=== PATIENT | female | born 1965 | race Caucasian/White ===

== ENCOUNTER → 2019-07-11 12:54 | Outpatient (BNVA) | payer MEDICARE, MEDICAID, SELFPAY | PROVIDERS: PCP Family Medicine; Referring Provider Psychiatry & Neurology Clinical Neurophysiology; Visit Provider Psychiatry & Neurology Neurology | DX: M79.604 Pain in right leg (principal); M79.605 Pain in left leg; M54.5 Low back pain; G43.009 Migraine without aura, not intractable, without status migrainosus; G44.40 Drug-induced headache, not elsewhere classified, not intractable | CPT/HCPCS: 99205 ==

== ENCOUNTER → 2019-08-24 14:02 | Outpatient (BNVA) | payer MEDICARE, MEDICAID, SELFPAY | PROVIDERS: PCP Family Medicine; Referring Provider Family Medicine; Visit Provider Psychiatry & Neurology Neurology | DX: M79.604 Pain in right leg (principal); M79.605 Pain in left leg; M54.9 Dorsalgia, unspecified; G43.009 Migraine without aura, not intractable, without status migrainosus; G44.40 Drug-induced headache, not elsewhere classified, not intractable | CPT/HCPCS: 99214 ==

== ENCOUNTER → 2019-10-26 08:14 | Outpatient (BNVA) | payer MEDICARE, MEDICAID, SELFPAY | PROVIDERS: PCP Family Medicine; Referring Provider Family Medicine; Visit Provider Psychiatry & Neurology Neurology | DX: G43.009 Migraine without aura, not intractable, without status migrainosus (principal); G44.40 Drug-induced headache, not elsewhere classified, not intractable; M79.604 Pain in right leg; M79.605 Pain in left leg; M54.9 Dorsalgia, unspecified; J44.9 Chronic obstructive pulmonary disease, unspecified | CPT/HCPCS: 99213; 99441 ==

== ENCOUNTER 2020-07-19 01:54 | Outpatient (CLI) | payer MEDICARE, MEDICAID, SELFPAY ==
--- NOTE | 2020-07-19 13:20 | DI.CT_ITS ---
EXAM: CT HEAD WO CLINICAL HISTORY: HEADACHE,R51.9. TECHNIQUE: Imaging Protocol: Axial computed tomography images with coronal and sagittal reformatted images were created and reviewed COMPARISON: No exams were available for comparison FINDINGS: There are no skull fractures nor fluid in the visualized paranasal sinuses. There is no evidence of intracranial hemorrhage, mass effect, or shift of midline structures. There are no extra-axial fluid collections. The ventricles are not enlarged or shifted and there is no blo od within the ventricular system nor within the basal cisterns. IMPRESSION: No acute intracranial findings on this noninfused CT scan of the brain. RADIATION DOSE DELIVERED: 661.28mGy.cm Total DLP DATA REPOSITORY: All CT scans at this facility are submitted to the National Radiology Data Registry (NRDR) Dose Index Registry (DIR) with the [employer] ([employer]). RADIATION OPTIMIZATION: All CT scans at this facility use at least one of these dose optimization te chniques: automated exposure control; mA and/or kV adjustment per patient size (includes targeted exa ms where dose is matched to clinical indication); or iterative reconstruction.
== END 2020-07-19 02:14 ==
PROVIDERS: PCP Family Medicine; Visit Provider Family Medicine
DX: R51.9 Headache, unspecified (principal)
CPT/HCPCS: 70450

== ENCOUNTER 2020-10-14 19:41 | Emergency (ER) | payer MEDICARE, MEDICAID, SELFPAY ==
[2020-10-14] VITALS (20 sets, daily range): BP systolic 122–162; BP diastolic 72–107; PULSE 65–85; RESP 10–20; TEMP 37; O2SAT 94–99
--- NOTE | 2020-10-14 19:45 | RT.EKG_ITS ---
APPROVED REPORT Exam: Resting ECG Patient Location: E HR:72 bpm ECG Measurements Heart Rate 72 AXIS VT 162 P 32 QRSd 85 QRS 61 QT 372 T -6 QTc 408 Conclusion Sinus rhythm...normal P axis, V-rate 60- [address] [place] [address]-T changes inferiorly
[2020-10-14] MEDS: Acetaminophen 500 MG TAB 1000 MG PO (20:26)
[2020-10-14] MEDS: Prochlorperazine 10 MG/2 ML VIAL IVP (20:26)
[2020-10-14] MEDS: diphenhydrAMINE 50 MG/ML VIAL 25 MG IVP (20:26)
[2020-10-14] MEDS: Normal Saline 1,000 ML 1000 ML IV (20:26)
[2020-10-14 20:57] LABS: Abs Immature Grans 0.04 10^3/uL (0.0-0.06); Absolute Basophil Count 0.19 10^3/uL (0.0-0.2); Absolute Eosinophil Count 0.28 10^3/uL (0.0-0.7); Absolute Lymphocyte Count 2.82 10^3/uL (1.2-3.4); Absolute Neutrophil Count 4.38 10^3/uL (1.2-6.7); Basophils % 2.2; Eosinophils % 3.3; HCT 47.7 % (36.0-46.0); HGB 15.4 g/dL (11.2-15.7); Immature Grans % 0.5; Lymphocytes % 32.8; MCH 29.3 pg (27.0-33.0); MCHC 32.3 % (32.0-36.0); MCV 90.9 fL (80-95); MPV 9.1 fL (8.0-11.0); Monocytes % 10.5; Neutrophils % 50.7; Nucleated RBC 0 %; Platelet Count 385 10^3/uL (130-400); RBC 5.25 10^6/uL (3.93-5.22); RDW 13.1 % (11.7-14.6); RDW-SD 43.8 fL; WBC 8.61 10^3/uL (4.4-10.8)
[2020-10-14 21:11] LABS: ALT 24 U/L (14-59); AST 12 U/L (15-37); Albumin 3.7 g/dL (3.4-5.0); Alkaline Phosphatase 109 U/L (46-116); Anion Gap 7.5 mmol/L (3-11); BUN 11 mg/dL (7-18); Bilirubin, Total 0.3 mg/dL (0.2-1.0); CO2 30.5 mmol/L (21.0-32.0); Calcium 9.4 mg/dL (8.5-10.1); Chloride 106 mmol/L (98-107); Estimated GFR 58.22 (mL/min/1.73m2); Glucose 120 mg/dL (74-106); Potassium 3.9 mmol/L (3.5-5.1); Sodium 144 mmol/L (136-145)
[2020-10-14 21:14] LABS: Troponin I < 0.05 ng/mL (<0.06)
--- NOTE | 2020-10-14 21:24 | W.ED.GENAD ---
Discharge Plan Disposition Patient Disposition: HOME Condition: Good Discharge Details Clinical Impression: Migraine headache without aura Primary Care Provider: Selvin Rai ED Provider: Pooja Hercules Home Meds and New Rx's Prescriptions: New prochlorperazine maleate [Compazine] 10 mg tablet 10 mg PO Q6H PRNQty: 14 RF: 0 Continued Advair HFA 230-21 mcg/actuation HFA aerosol inhaler 2 puff IH BID RF: 0 lamotrigine [Lamictal] 150 mg tablet 150 mg PO DAILY RF: 0 levalbuterol tartrate 45 mcg/actuation HFA aerosol inhaler 2 inh IH Q6H RF: 0 levothyroxine 100 mcg capsule 100 mcg PO DAILY RF: 0 polyethylene glycol 3350 17 gram/dose powder 17 gm PO DAILY RF: 0 quetiapine [Seroquel] 400 mg tablet 600 mg PO QHS RF: 0 gabapentin 600 mg tablet 600 mg PO QHS RF: 0 Discharge Instructions Additional Instructions: Please follow-up with your primary care physician tomorrow, I have written you prescription for Compazine, this medication can markedly well for headaches, you may try Excedrin Migraine as well Please return should you have worsening headache, fever, chills, stiff neck, strength or sensation change, or with any new or progressing symptoms Medical Decision Making Blood pressure at time of discharge 130/79, complete resolution of headache after migraine cocktail of Compazine and 25 of Benadryl with 1 L of normal saline and Tylenol 1 g Patient feels comfortable and request discharge home She has ALT of 12, no other acute abnormalities EKG and troponin negative for acute pathology We will follow up with primary care physician with possible referral to neurology in the outpatient setting #Prescription for home Return precautions discussed and patient expressed understanding Nonfocal neurological exam, no clinical evidence of meningitis No upper respiratory signs and symptoms appreciated on today's exam Differential Diagnosis Differential Diagnosis: Meningitis, TIA, migraine headache, sinusitis Medical Records Medical records reviewed: Yes I reviewed the patient's medical records. Lab Data Lab results reviewed: Yes I reviewed the patient's lab results. HPI This 64-year-old female with history of migraine headaches, back pain presents with report of lightheadedness, weakness, and headache. Patient has had intermittent episodes similar to this over the course of the past several months. She states that she had a CAT scan secondary to these symptoms. She denies any paresthesias or current dizziness. She states that her headache are always on the left side, she denies any pain over her lutheran. She denies stiff neck or fever. She denies any acute vision change aside from some mild photophobia. She denies known carbon monoxide exposure. She denies any falls or injuries. She has any history of anticoagulation. She is also found some today. She has not taken any medications prior to arrival. Has not followed up with neurology in the outpatient setting patient denies any dramatic change since her previous CT scan in June. General Date/Time Provider Initiated Documentation: 10/14/20 19:51. Related Data Home Medications Medication Instructions Recorded Confirmed fluticasone propionate 230 2 puff IH BID 07/11/19 10/14/20 mcg-salmeterol 21 mcg/actuation HFA inhaler lamotrigine 150 mg tablet 150 mg PO DAILY 07/11/19 10/14/20 levalbuterol tartrate 45 2 inh IH Q6H 07/11/19 10/14/20 mcg/actuation aerosol inhaler levothyroxine 100 mcg capsule 100 mcg PO DAILY 07/11/19 10/14/20 polyethylene glycol 3350 17 17 gm PO DAILY 07/11/19 10/14/20 gram/dose oral powder quetiapine 400 mg tablet 600 mg PO QHS tab 07/11/19 10/14/20 gabapentin 600 mg PO QHS 10/14/20 10/14/20 prochlorperazine maleate 10 mg PO Q6H PRN #14 tab 10/14/20 [Compazine] Previous Rx's Medication Instructions Recorded prochlorperazine maleate 10 mg PO Q6H PRN #14 tab 10/14/20 [Compazine] Allergies Allergy/AdvReac Type Severity Reaction Status Date / Time ampicillin Allergy Intermediate Rash, Verified 10/14/20 19:48 vomiting sulfamethoxazole Allergy Intermediate Tachycardia Verified 10/14/20 19:48 [From Bactrim] fluoxetine [From Prozac] Allergy Mild anxiety Verified 10/14/20 19:48 General Stated Complaint: Dizzy/Sync JOSEFINA: 3 Review of Systems Narrative: Review of systems negative x7 aside from where indicated in [facility] Medical History (Updated 10/14/20 @ 21:36 by SABA Gilman) Anemia Anxiety Bipolar 1 disorder COPD (chronic obstructive pulmonary disease) History of chronic constipation Hyperlipidemia Hypothyroidism Irritable bowel syndrome Low back pain Migraine headache without aura Postoperative retention of urine Right inguinal hernia Umbilical hernia Uterine fibroid Surgical History H/O breast biopsy x3 S/P cholecystectomy 2005 S/P hernia repair epigastric x3 S/P hysterectomy with oophorectomy 2018; with bladder suspension and cystocele repair Family History Father , HAD 3 MIS AND CABG- FACILITY OPERATIONS MANAGER ACCIDENT AT 49 Heart disease Myocardial infarction Mother Mental disorder Hx of chronic obstructive lung disease Brother Thyroid disease Daughter Asthma Social History Smoking/Tobacco Use Status: Current every day Smoking risk assessment performed?: Yes Alcohol Intake: never Drug use: Never Substance use type: does not use Number of Children: 2 current occupation: Unemployed What is your relationship status?: Panel score (0-1 are the most socially isolated patients): 0 Seatbelt use: always Do you feel safe at home: Yes Do you feel safe in your relationship?: Yes Exam Const General: cooperative, no acute distress and well developed HENMT Other: Uvula midline, TMs intact bilaterally Eyes Pupils: PERRL EOM: EOM intact bilaterally Neck Other: No meningismus, no carotid bruits Resp Effort & Inspection: normal respiratory effort Cardio Rate: regular rate Rhythm: regular rhythm Skin General skin exam: no rashes or lesions noted Neuro General: patient alert and patient oriented x3 Cranial Nerves: CN's II-XI intact bilaterally Cognition: normal cognition Speech: speech normal Sensory Exam: no sensory deficits noted Other: Strength and sensation intact distally, ambulatory with steady gait Course Vital Signs Vital signs: Vital Signs Temperature 37 C 10/14/20 19:46 Pulse 85 10/14/20 19:46 Respiratory Rate 20 10/14/20 19:46 Blood Pressure 162/89 H 10/14/20 19:46 Pulse Oximetry 99 10/14/20 19:46 Temperature 37 C 10/14/20 19:46 Temperature Source Skin 10/14/20 19:46 Pulse 78 10/14/20 20:46 Pulse 80 10/14/20 20:50 Respiratory Rate 11 L 10/14/20 20:50 Respiratory Effort Non-Labored 10/14/20 20:49 Respiratory Depth Normal 10/14/20 20:49 Respiratory Pattern Normal 10/14/20 20:49 Blood Pressure 140/85 10/14/20 20:46 Blood Pressure Mean 98 10/14/20 20:46 Blood Pressure Position Sitting 10/14/20 19:46 Pulse Oximetry 96 10/14/20 20:50 Oxygen Delivery Method Room Air 10/14/20 19:46 Oxygen Flow Rate 0 10/14/20 19:46 Pain Level 5 10/14/20 19:46 Lab/Test Results Lab/Test Results: Laboratory Tests Range/Units 10/14/20 10/14/20 20:39 20:39 WBC (4.4-10.8) 10^3/uL 8.61 RBC (3.93-5.22) 10^6/uL 5.25 H Hgb (11.2-15.7) g/dL 15.4 Hct (36.0-46.0) % 47.7 H MCV (80-95) fL 90.9 MCH (27.0-33.0) pg 29.3 MCHC (32.0-36.0) % 32.3 RDW (11.7-14.6) % 13.1 Plt Count (130-400) 10^3/uL 385 MPV (8.0-11.0) fL 9.1 Immature Gran % 0.5 Neutrophils % 50.7 Lymphocytes % 32.8 Monocytes % 10.5 Eosinophils % 3.3 Basophils % 2.2 Nucleated RBC % % 0 Absolute Neutrophils (1.2-6.7) 10^3/uL 4.38 Absolute Lymphocytes (1.2-3.4) 10^3/uL 2.82 Absolute Monocytes (0.1-0.8) 10^3/uL 0.90 H Absolute Eosinophils (0.0-0.7) 10^3/uL 0.28 Absolute Basophils (0.0-0.2) 10^3/uL 0.19 Sodium (136-145) mmol/L 144 Potassium (3.5-5.1) mmol/L 3.9 Chloride (98-107) mmol/L 106 Carbon Dioxide (21.0-32.0) mmol/L 30.5 Anion Gap (3-11) mmol/L 7.5 BUN (7-18) mg/dL 11 Creatinine (0.55-1.02) mg/dL 1.0 Estimated GFR/1.73 m2 (mL/min/1.73m2) 58.22 Glucose (74-106) mg/dL 120 H Calcium (8.5-10.1) mg/dL 9.4 Magnesium (1.8-2.4) mg/dL 2.0 Total Bilirubin (0.2-1.0) mg/dL 0.3 AST (15-37) U/L 12 L ALT (14-59) U/L 24 Alkaline Phosphatase (46-116) U/L 109 Troponin I (<0.06) ng/mL < 0.05 Total Protein (6.4-8.2) g/dL 7.0 Albumin (3.4-5.0) g/dL 3.7
== END 2020-10-14 21:52 | disposition home or self-care (01) ==
PROVIDERS: Emergency Provider Physician Assistant; PCP Family Medicine
DX: G43.809 Other migraine, not intractable, without status migrainosus (principal)
CPT/HCPCS: 80053; 93005; 96361; 96374; 96375; 99285; 83735; 84484; 85025; 93010; 99284; J0780; J1200

== ENCOUNTER 2021-06-04 11:51 | Emergency (ER) | payer MEDICARE, MEDICAID, SELFPAY ==
[2021-06-04] VITALS (29 sets, daily range): BP systolic 113–140; BP diastolic 69–80; PULSE 66–95; RESP 11–29; TEMP 36.6–36.8; O2SAT 93–98
--- NOTE | 2021-06-04 11:45 | RT.EKG_ITS ---
APPROVED REPORT Exam: Resting ECG Reason for Exam: heart palpitations Patient Location: E HR:78 bpm ECG Measurements Heart Rate 78 AXIS VT 164 P 8 QRSd 90 QRS 58 QT 345 T 8 QTc 393 Conclusion Sinus rhythm...normal P axis, V-rate 60- 99
--- NOTE | 2021-06-04 12:13 | W.ED.GENAD ---
Discharge Plan Disposition Patient Disposition: HOME Condition: Stable Discharge Details Clinical Impression: Palpitations Primary Care Provider: Selvin Rai ED Provider: Aroldo Leon Home Meds and New Rx's Prescriptions: Continued Advair HFA 230-21 mcg/actuation HFA aerosol inhaler 2 puff IH BID RF: 0 lamotrigine [Lamictal] 150 mg tablet 150 mg PO DAILY RF: 0 levalbuterol tartrate 45 mcg/actuation HFA aerosol inhaler 2 inh IH Q6H RF: 0 levothyroxine 100 mcg capsule 100 mcg PO DAILY RF: 0 polyethylene glycol 3350 17 gram/dose powder 17 gm PO DAILY RF: 0 quetiapine [Seroquel] 400 mg tablet 600 mg PO QHS RF: 0 gabapentin 600 mg tablet 600 mg PO QHS RF: 0 Discharge Instructions Instructions: Heart Palpitations (ED) Additional Instructions: Work-up in the ER is unremarkable for any obvious emergent process. You have remained asymptomatic while under my care. I have set you up for a Holter monitor for the next 48 hours. Please watch for new or worsening symptoms and return to the ER for any concerns. Otherwise I would like you to contact your primary care provider later today or first thing tomorrow morning to discuss your ER evaluation, ongoing symptoms, need for outpatient reevaluation Medical Decision Making 55-year-old female presents with palpitations since May 24 after receiving her booster vaccine, reports when she has the palpitations she feels short of breath and generalized weakness-shaking. Otherwise asymptomatic. Had an episode shortly prior to arrival but is asymptomatic now. Denies any cardiac history. Will obtain a cardiac work-up including D-dimer, delta troponin, and if unremarkable set the patient up with a Holter monitor. Currently she appears well, nontoxic, asymptomatic and hemodynamically stable. Initial laboratory values are unremarkable for any obvious emergent process. D-dimer 298. Will not pursue CTA of the chest. troponin less than 50. TSH 0.72 48-hour Holter monitor placed on the patient She remains asymptomatic and awaiting delta troponin Repeat EKG performed at 1533, sinus rhythm, ventricular rate of 71. No STEMI. Delta troponin remains less than 50. Patient remains asymptomatic. We discussed disposition, patient is comfortable discharge. She will be discharged with a 48-hour Holter monitor, given strict discharge and return precautions, otherwise will contact her primary care provider and follow-up as an outpatient. Medical Records Medical records reviewed: Yes I reviewed the patient's medical records. Imaging Data Radiologic Study: Attestation: I personally reviewed and interpreted this imaging study as follows: Imaging: X-Ray Radiologist's impression: Exam(s) XR CHEST 2V PA LATERAL EXAM: XR CHEST 2V PA LATERAL CLINICAL HISTORY: Palpitations TECHNIQUE: 2D digital imaging was performed of the chest. Two images were obtained. PA and lateral views were obtained. COMPARISON: No exams were available for comparison FINDINGS: MEDIASTINUM: Normal. HEART: Normal. PULMONARY VASCULATURE: Normal. LUNGS: Clear. PLEURAL SPACE: No pleural effusion or pneumothorax. BONE:Within normal limits for the patient's age. OTHER FINDINGS:Normal. IMPRESSION: No acute pulmonary findings. Lab Data Lab results reviewed: Yes I reviewed the patient's lab results. Labs: Laboratory Tests Range/Units 06/04/21 06/04/21 06/04/21 12:17 12:17 12:17 WBC (4.4-10.8) 10^3/uL 8.49 RBC (3.93-5.22) 10^6/uL 5.31 H Hgb (11.2-15.7) g/dL 15.1 Hct (36.0-46.0) % 47.2 H MCV (80-95) fL 88.9 MCH (27.0-33.0) pg 28.4 MCHC (32.0-36.0) % 32.0 RDW (11.7-14.6) % 12.8 Plt Count (130-400) 10^3/uL 370 MPV (8.0-11.0) fL 9.0 Immature Gran % 0.4 Neutrophils % 66.0 Lymphocytes % 21.9 Monocytes % 7.7 Eosinophils % 2.1 Basophils % 1.9 Nucleated RBC % % 0 Absolute Neutrophils (1.2-6.7) 10^3/uL 5.61 Absolute Lymphocytes (1.2-3.4) 10^3/uL 1.86 Absolute Monocytes (0.1-0.8) 10^3/uL 0.65 Absolute Eosinophils (0.0-0.7) 10^3/uL 0.18 Absolute Basophils (0.0-0.2) 10^3/uL 0.16 PT (9.3-11.0) sec 9.7 INR (0.9-1.1) 1.0 APTT (21.0-27.5) sec 22.3 D-Dimer (<500) ng/mlFEU 298 Sodium (136-145) mmol/L 143 Potassium (3.5-5.1) mmol/L 3.7 Chloride (98-107) mmol/L 107 Carbon Dioxide (21.0-32.0) mmol/L 28.8 Anion Gap (3-11) mmol/L 7.2 BUN (7-18) mg/dL 14 Creatinine (0.55-1.02) mg/dL 1.0 Estimated GFR/1.73 m2 (mL/min/1.73m2) 58.00 Glucose (74-106) mg/dL 118 H Calcium (8.5-10.1) mg/dL 9.1 Magnesium (1.8-2.4) mg/dL 2.1 Total Bilirubin (0.2-1.0) mg/dL 0.4 AST (15-37) U/L 10 L ALT (14-59) U/L 14 Alkaline Phosphatase (46-116) U/L 100 Troponin I (<or=60) ng/L < 50 Total Protein (6.4-8.2) g/dL 6.7 Albumin (3.4-5.0) g/dL 3.5 TSH (0.36-3.74) uIU/mL 0.72 ECG Data Attestation: I personally reviewed and interpreted this ECG (s) as follows: Interpretation: Please see official report by Dr. Truong. Sinus rhythm, ventricular rate of 78. No STEMI HPI General Mode of arrival: EMS. Date/Time Provider Initiated Documentation: 06/04/21 12:05. Limitations to Documentation: no limitations. Information obtained by: patient and EMS. HPI Narrative: This is a 55-year-old female with a past medical history of thyroid disease, anemia, anxiety, bipolar, COPD, current smoker, who reports that she received her Moderna Covid Covid booster on May 24 and later that evening began having palpitations. She states ever since that day she has had intermittent palpitations sometimes at rest, sometimes with exertion, nothing really makes it worse or better. She is otherwise asymptomatic. When she has the palpitations she feels generalized weakness, short of breath and reports feeling somewhat shaky. When she is not having palpitations she is asymptomatic. She denies recent illness or trauma, neck pain, chest pain, cough abdominal pain with nausea, vomiting, history of DVT or PE, pain or swelling her legs. Related Data Home Medications Medication Instructions Recorded Confirmed fluticasone propionate 230 2 puff IH BID 07/11/19 06/04/21 mcg-salmeterol 21 mcg/actuation HFA inhaler lamotrigine 150 mg tablet 150 mg PO DAILY 07/11/19 06/04/21 levalbuterol tartrate 45 2 inh IH Q6H 07/11/19 06/04/21 mcg/actuation aerosol inhaler levothyroxine 100 mcg capsule 100 mcg PO DAILY 07/11/19 06/04/21 polyethylene glycol 3350 17 17 gm PO DAILY 07/11/19 06/04/21 gram/dose oral powder quetiapine 400 mg tablet 600 mg PO QHS tab 07/11/19 06/04/21 gabapentin 600 mg PO QHS 10/14/20 06/04/21 Allergies Allergy/AdvReac Type Severity Reaction Status Date / Time ampicillin Allergy Intermediate Rash, Verified 06/04/21 12:05 vomiting sulfamethoxazole Allergy Intermediate Tachycardia Verified 06/04/21 12:05 [From Bactrim] fluoxetine [From Prozac] Allergy Mild anxiety Verified 06/04/21 12:05 General Stated Complaint: Palpitatns JOSEFINA: 2 Review of Systems Constitutional Constitutional: Denies fatigue, Denies fever(s) and Denies weakness ENT Ears, Nose, Mouth, and Throat: Denies neck pain Cardiovascular Cardiovascular: Denies chest pain, Reports irregular heart rhythm, Reports palpitations and Reports dyspnea (With palpitations) Respiratory Respiratory: Denies cough Gastrointestinal Gastrointestinal: Denies abdominal pain, Denies nausea and Denies vomiting Musculoskeletal Musculoskeletal: Reports back pain (Chronic) and Denies neck pain Integumentary/Breasts Skin/Breast: Denies rash Neurologic Neurologic: Denies weakness Endocrine Endocrine: Denies fatigue and Reports palpitations Hematologic/Lymphatic Hematologic/Lymphatic: Denies easy bleeding and Denies easy bruising PFSH All Active Problems (Updated 06/04/21 @ 14:53 by SABA Ovalle) Palpitations (Acute) Medication overuse headache (Acute) Migraine headache without aura (Acute) Chronic headache (Acute) Back pain (Acute) Leg pain, bilateral (Acute) Medical History (Updated 06/04/21 @ 14:53 by SABA Ovalle) Anemia Anxiety Bipolar 1 disorder COPD (chronic obstructive pulmonary disease) History of chronic constipation Hyperlipidemia Hypothyroidism Irritable bowel syndrome Low back pain Postoperative retention of urine Right inguinal hernia Umbilical hernia Uterine fibroid Surgical History H/O breast biopsy x3 S/P cholecystectomy 2005 S/P hernia repair epigastric x3 S/P hysterectomy with oophorectomy 2018; with bladder suspension and cystocele repair Family History Father , HAD 3 MIS AND CABG- HUMAN SERVICES PROFESSIONAL ACCIDENT AT 49 Heart disease Myocardial infarction Mother Mental disorder Hx of chronic obstructive lung disease Brother Thyroid disease Daughter Asthma Social History Smoking/Tobacco Use Status: Current every day Smoking risk assessment performed?: Yes Alcohol Intake: never Drug use: Never Substance use type: does not use Number of Children: 2 current occupation: Unemployed What is your relationship status?: Panel score (0-1 are the most socially isolated patients): 0 Seatbelt use: always Do you feel safe at home: Yes Do you feel safe in your relationship?: Yes Exam Const General: cooperative, healthy appearing, comfortable and no acute distress Orientation: alert, awake and oriented x3 HENMT Head: normal to inspection, normocephalic and atraumatic Face and sinus: normal facial exam Mouth: moist mucous membranes Eyes General: appearance normal, both eyes and all related structures Conjunctivae: conjunctivae normal Neck Neck: normal visual inspection, full ROM, trachea midline, supple and nontender Resp Effort & Inspection: normal respiratory effort and able to speak in complete sentences Auscultation: clear to auscultation bilaterally Cardio Rate: regular rate Rhythm: regular rhythm GI Palpation: soft and nontender Back/Spine/Pelvis Back: No back tenderness Skin General skin exam: no rashes or lesions noted Neuro General: patient alert, patient awake, patient oriented x3, moves all extremities and no focal motor deficits Cognition: normal cognition Speech: speech normal Gait: normal gait Motor: muscle tone normal throughout Sensory Exam: no sensory deficits noted Extrem General: normal to inspection, full ROM, capillary refill normal, no pedal edema and no calf tenderness Psych Appearance: grossly normal Mental Status: mental status grossly normal Course Vital Signs Vital signs: Vital Signs Temperature 36.6 C 06/04/21 11:52 Pulse 83 06/04/21 11:52 Respiratory Rate 14 06/04/21 11:52 Blood Pressure 140/80 06/04/21 11:52 Pulse Oximetry 93 06/04/21 11:52 Temperature 36.6 C 06/04/21 11:52 Temperature Source Temporal Artery Scan 06/04/21 11:52 Pulse 83 06/04/21 11:52 Respiratory Rate 14 06/04/21 11:52 Respiratory Effort Non-Labored 06/04/21 12:01 Blood Pressure 140/80 06/04/21 11:52 Blood Pressure Position Sitting 06/04/21 11:52 Pulse Oximetry 93 06/04/21 11:52 Oxygen Delivery Method Room Air 06/04/21 11:52 Oxygen Flow Rate 0 06/04/21 11:52 Pain Level 0 06/04/21 12:01
[2021-06-04 12:24] LABS: Abs Immature Grans 0.03 10^3/uL (0.0-0.06); Absolute Basophil Count 0.16 10^3/uL (0.0-0.2); Absolute Eosinophil Count 0.18 10^3/uL (0.0-0.7); Absolute Lymphocyte Count 1.86 10^3/uL (1.2-3.4); Absolute Monocyte Count 0.65 10^3/uL (0.1-0.8); Absolute Neutrophil Count 5.61 10^3/uL (1.2-6.7); Basophils % 1.9; Eosinophils % 2.1; HCT 47.2 % (36.0-46.0); HGB 15.1 g/dL (11.2-15.7); Immature Grans % 0.4; Lymphocytes % 21.9; MCH 28.4 pg (27.0-33.0); MCV 88.9 fL (80-95); Monocytes % 7.7; Nucleated RBC 0 %; Platelet Count 370 10^3/uL (130-400); RBC 5.31 10^6/uL (3.93-5.22); RDW 12.8 % (11.7-14.6); RDW-SD 41.9 fL; WBC 8.49 10^3/uL (4.4-10.8)
--- OUTSIDE RECORDS SUMMARY | 2021-06-04 12:26 | XMS_ITS ---
:1965 Author Care Team Providers Name Role Phone IBRAHIMA RICE MD Primary Care Provider [phone] PAPO GARLAND MD General Surgeon [phone] ARIS CHAVIRA General Surgeon [phone] ISAÍAS HDZ MD Bottle Booth Attendant Unavailable Allergies Code Code System Name Reaction Severity Status Onset 748167 RxNorm Bactrim Tachycardia Moderate Active 06/03/20 1 8 733 RxNorm Ampicillin Rash ? Active ? Vomiting ? Active ? 73677 RxNorm Prozac ? ? Active ? Notes: Reviewed 07/02/20 Medications Name Status Start Date Stop Date ? ? Advair HFA 115 mcg-21 mcg/actuation aerosol inhaler Completed 07/21/2012 12/06/2014 2 (two) Aerosol: bid - twice daily Advair HFA 230 mcg-21 mcg/actuation aerosol inhaler Active ? Not available INHALE TWO PUFFS BY MOUTH TWICE A DAY aspirin 81 mg tablet,delayed release Completed ? 02/01/2021 Take 1 tablet every day by oral route for 90 days. atorvastatin 20 mg tablet Completed ? 2018 atorvastatin 40 mg tablet Completed ? 2019 azithromycin 250 mg tablet Completed ? 01/24 two tabs on day one followed by one tab on days two through fiv e benzalkonium chloride (bulk) 50 % solution Completed ? 09/01/2018 Take 1 mL every 6 hours by miscell. route. iakezoqcom-ngnukmkrubtrj-crygi Completed ? 0 01/21/2018 ine 50 mg-300 mg-40 mg capsule cefdinir 300 mg capsule Completed ? 12/15/19 21 cetirizine 10 mg tablet Completed ? 03/24/20 19 Take 1 tablet every day by oral route for 30 days. clarithromycin 500 mg tablet Completed ? 06/2019 clindamycin HCl 300 mg capsule Completed 04/01/2016 1 1 (one) Capsule: tid - three times a day codeine 10 mg-guaifenesin 100 Completed ? mg/5 mL oral liquid Compazine 10 mg tablet Completed ? 1 Take 1 tablet by oral route as needed. doxycycline hyclate 100 mg Completed ? 05/30 tablet Enablex 15 mg tablet,extended release Completed 05/14/2012 11/22/2015 1 Tablet ER 24HR: qd - daily Ferate 240 mg (27 mg iron) Completed ? 03/22 tablet ferrous sulfate 325 mg (65 mg iron) tablet,delayed release Compl eted 07/09/2016 09/15/2016 1 (one) Tablet: qd - daily with largest meal Flovent HFA 110 mcg/actuation aerosol inhaler Completed 12/01/2012 2 (two) Puff(s): bid - twice daily fluticasone propionate 50 Completed ? 2020 mcg/actuation nasal spray,suspension gabapentin 300 mg capsule Completed ? 2019 Take 1 capsule every day by oral route at bedtime for 30 days. gabapentin 600 mg tablet Active ? Not gonzales ilable TAKE ONE TABLET BY MOUTH AT BEDTIME GaviLyte-G 236 gram-22.74 Completed ? 2018 gram-6.74 gram-5.86 gram oral solution Gentle Laxative (bisacodyl) 5 Completed ? mg tablet,delayed release hydroxyzine HCl 25 mg tablet Completed ? ibuprofen 800 mg tablet Completed 05/14/2012 12/02/19 13 1 Tablet: three times daily as needed Incruse Ellipta 62.5 mcg/actuation powder for inhalation Complet ed 10/03/2015 11/22/2015 1 (one) Inhalation: daily K-Y Lubricating topical jelly Completed ? Apply 1 g every 6 hours by topical route. Lamictal 150 mg tablet Active ? Not avail able TAKE 1 TABLET BY MOUTH EVERY MORNING levalbuterol HFA 45 mcg/actuation aerosol inhaler Active ? Not available INHALE TWO PUFFS BY MOUTH EVERY 4 HOURS NEEDED levofloxacin 500 mg tablet Completed ? 03/22 levothyroxine 100 mcg tablet Active ? Not available TAKE ONE TABLET BY MOUTH EVERY DAY levothyroxine 125 mcg tablet Completed ? 04/2018 levothyroxine 150 mcg tablet Completed ? 04/2018 levothyroxine 88 mcg tablet Completed ? 11/20 lorazepam 0.5 mg tablet Completed ? 07/20/19 20 lorazepam 1 mg tablet Completed ? 07/20/2019 meclizine 25 mg tablet Completed ? 9 Metamucil [facility] Fiber 3.4 gram/5.8 gram oral powder Comple basilia 05/04/2018 06/23/2019 Take 3.4 g every day by oral route. Myrbetriq 25 mg Completed ? 05/16/2019 tablet,extended release naproxen 500 mg tablet Active ? Not avail able Narcan 4 mg/actuation nasal Completed 05/04/201809/20 spray nitrofurantoin Completed ? 06/14/2018 monohydrate/macrocrystals 100 mg capsule oxybutynin chloride 5 mg Completed ? 019 tablet Percocet 5 mg-325 mg tablet Completed 05/04/201804/22 Take 1 tablet every 8 hours by oral route as needed. polyethylene glycol 3350 17 gram/dose oral powder Active ? Not available TAKE 17G IN 8OZ OF LIQUID ONCE DAILY NEEDED FOR 30 DAYS prednisone 10 mg tablet Completed ? 03/24/20 19 prednisone 10 mg tablets in a Completed ? dose pack prednisone 20 mg tablet Active ? Not avai lable Pyridium 200 mg tablet Completed ? 8 As directed prior to surgery Seroquel 200 mg tablet Completed ? 8 Seroquel 400 mg tablet Active ? Not avail able TAKE ONE TABLET BY MOUTH AT BEDTIME Seroquel 50 mg tablet Completed ? 02/01/2021 Spiriva Respimat 2.5 mcg/actuation solution for inhalation Compl eted 07/03/2016 03/05/2017 2 (two) Puff Puff: daily Spiriva with HandiHaler 18 mcg and inhalation capsules Completed 11/22/2015 11/22/2015 1 (one) Capsule: qd - daily Stiolto Respimat 2.5 mcg-2.5 mcg/actuation solution for inhalati on Completed ? 05/16/2019 Inhale 2 puffs every day by inhalation route. sulfamethoxazole 800 Completed ? 06/14/2018 mg-trimethoprim 160 mg tablet tamsulosin 0.4 mg capsule Completed ? 2018 Tylenol 500 mg tablet Completed ? 07/20/2019 Take 2 tablets every 6 hours by oral route. Problems Name Status Onset Date Source ? Migraine Active 12/17/2017 ? Fatigue Active 12/17/2017 ? Hyperlipidemia Active 01/21/2018 ? Uterine Fibroid Polyp Active 04/16/2018 ? Chronic Constipation Active 04/20/2018 ? Right Sided Abdominal Pain Active 04/20/2018 ? Postoperative Retention of Urine Active 05/26/2018 ? Thoracic Back Pain Active 07/20/2018 ? Low Back Pain Active 07/20/2018 ? Abdominal Pain Active 07/20/2018 ? Right Inguinal Hernia Active 03/24/2019 ? Perimenopausal Disorder Active 03/24/2019 ? Muscle Pain Active 05/30/2019 ? Allergic Rhinitis Active 08/25/2019 ? Malaise and Fatigue Active 07/12/2020 ? Headache Active 07/12/2020 ? Hypothyroidism Active ? History Anemia Due to Chronic Blood Loss Active ? History Mild Manic Bipolar I Disorder Active ? Hi story Anxiety Active ? ? Claustrophobia Active ? ? Tobacco User Unknown ? History Acute Sinusitis Unknown ? History Acute Bronchitis Unknown ? History Chronic Obstructive Lung Disease Active ? History Irritable Bowel Syndrome Active ? History Intermenstrual Bleeding - Irregular Unknown ? History Lack of Energy Unknown ? History Palpitations Active ? History Lymphadenopathy Active ? History History of Neoplasm Unknown ? History Adult Health Examination Unknown ? History Screening for Cardiovascular System Unknown ? History Disease Bladder Muscle Dysfunction - Active ? His tory Overactive Difficulty Speaking Active ? History Procedures Date Name Performed by ? 12/07/2018 Colonoscopy Information not avai lable Notes: 10 year call back, 05/03/2018 Total Laparoscopic Hysterectomy Informat ion not available Notes: with bilateral britton pingo-oophorectomy, uterosacral vault suspension + anterior cystocele repair 11/07/2004 Cholecystectomy Information not avai lable ? Hernia Repair Umbilical Information not available Notes: x2- belly button ? Breast Biopsy Information not avai lable Notes: x3 11/30/2017 Electrocardiogram P_nc [facility] raymundo/[address] [place] [address] (Work Place) 02/12/2018 US, Pelvis, Transabdominal + [facility] (Internal) Transvaginal [address] [place] [address] (Work Place) 03/08/2018 US, Pelvis, Transabdominal + [facility] (Internal) Transvaginal [address] [place] [address] (Work Place) 04/23/2018 US, Abdomen, Limited [facility] (Internal) [address] [place] [address] (Work Place) 07/05/2018 CT, Abdomen + Pelvis, W/ Contrast [facility] (Internal) [address] [place] [address] (Work Place) 07/20/2018 XR, Thoracic Spine, 3 View [facility] (Internal) [address] [place] [address] (Work Place) 07/20/2018 XR, Lumbosacral Spine, 2 or 3 View [facility] (Internal) [address] [place] [address] (Work Place) 08/05/2018 XR, Abdomen [facility] (Internal) [address] [place] [address] (Work Place) 09/17/2018 CT, Abdomen + Pelvis, W/ Contrast [facility] (Internal) [address] [place] [address] (Work Place) 06/23/2019 MRI, Lumbar Spine, W/o Contrast [facility] (Internal) [address] [place] [address] (Work Place) 06/23/2019 XR, Eye, for Foreign Body [facility] (Internal) [address] [place] [address] (Work Place) 07/12/2020 CT, Head + Brain, W/o Contrast Xray [facility] [address] [place], [place] [address] (Work Place) 02/01/2021 CT, Abdomen + Pelvis, W/ Contrast [facility] (Internal) [address] [place] [address] (Work Place) Results Lab Results Date Name Specimen Result Interpretation Description Value Range Status Address ? 02/08/2021 CBC W/ BLD ? Wbc 8.6 10*3/uL 5.0-10.0 Final [place] Auto Diff 10*3/uL [facility] L ab (Internal) : [address] ? ? BLD ? Rbc 5.00 10*6/uL 4.10-5.30 Final N orth 10*6/uL [facility] Hospital L ab (Internal) : [address] ? ? BLD ? Hgb 14.5 g/dL 12.0-16.0 Final Nort h g/dL [facility] L ab (Internal) : [address] ? ? BLD ? Hct 45.6 % 37.0-47.[address] [facility] L ab (Internal) : [address] ? ? BLD ? Mcv 91.2 fL 80.0-96.0 Final [facility] L ab (Internal) : [address] ? ? BLD ? Mch 29.0 pg 26.0-32.0 Final [facility] L ab (Internal) : [address] ? ? BLD ? Mchc 31.8 g/dL 31.0-35.0 Final Nort h g/dL [facility] L ab (Internal) : [address] ? ? BLD ? Rdw 13.1 % 11.5-14.[address] [facility] L ab (Internal) : [address] ? ? BLD ? Plt 375 10*3/uL 130-450 Final Nort h 10*3/uL [facility] L ab (Internal) : [address] ? ? BLD ? Anc 5.24 10*3/uL ? Final Nort h [facility] L ab (Internal) : [address] ? ? BLD ? Nlr 2.31 0.00-3.20 Final [facility] L ab (Internal) : [address] ? ? BLD ? Neutro 60.6 % 40.0-75.[address] [facility] L ab (Internal) : [address] ? ? BLD ? Lymph 26.3 % 20.0-50.0 Final [facility] [address] ? ? BLD ? Pender 9.2 % 2.0-10.0 Final [facility] ([facility] : [address] ? ? BLD ? Eos 1.4 % 1.0-6.0 % Final [place] [facility] (Internal) : [address] ? ? BLD High Baso 2.0 % 0.0-1.0 % Final [facility] L [facility] (Internal) : [address] ? ? BLD ? Ig 0.5 % 0.0-0.9 % Final [facility] L [facility] (Internal) : [address] 02/08/2021 Lipase, S ? Lip 80 U/L 23-300 Final North Serum or U/L [facility] (Internal) : [address] 02/08/2021 CMP, S ? g/r 91 mg/dL 74-106 Final Nort h Serum or mg/dL [facility] (Internal) : [address] ? ? S ? Bun 13 mg/dL 7-17 Final [facility] mg/dL [facility] (Internal) : [address] ? ? S ? Crea 0.80 mg/dL 0.52-1.04 Final Nor th mg/dL [facility] (Internal) : [address] ? ? S ? Ca 9.7 mg/dL 8.4-10.2 Final [facility] mg/dL [facility] (Internal) : [address] ? ? S ? Na 143 mmol/L 137-145 Final [facility] mmol/L [facility] (Internal) : [address] ? ? S ? K 3.7 mmol/L 3.5-5.1 Final [facility] mmol/L [facility] (Internal) : [address] ? ? S ? Cl 107 mmol/L 98-107 Final North mmol/L [facility] L ab (Internal) : [address] ? ? S ? Tco2 28.0 mmol/L 22.0-30.0 Final No rth mmol/L [facility] (Internal) : [address] ? ? S ? Tp 6.8 g/dL 6.3-8.2 Final [place] g/dL [facility] L [facility] (Internal) : [address] ? ? S ? Alb 4.0 g/dL 3.5-5.0 Final [place] g/dL [facility] L [facility] (Internal) : [address] ? ? S ? Tbil 0.3 mg/dL 0.2-1.3 Final [place] mg/dL [facility] L [facility] (Internal) : [address] ? ? S ? Alp 84 U/L 50-136 Final [place] U/L [facility] L [facility] (Internal) : [address] ? ? S ? Alt 14 U/L 9-52 U/L Final [place] (Sgpt) [facility] (Internal) : [address] ? ? S ? Ast 34 U/L 14-36 U/L Final [place] (Sgot) [facility] (Internal) : [address] 10/12/2020 SARS CoV SWAB ? Covid-1 negative negative Final [place] 2 RNA 9 RT-PCR [facility] (COVID-19 [facility] ), , Result (Internal) : ell teacher-PCR, [address]iallo ry Specimen ? ? SWAB ? Perform panther ? Final [place] ing Lab [facility] L [facility] (Internal) : [address] 07/12/2020 CBC W/ BLD ? Wbc 7.6 10*3/uL 5.0-10.0 Final [place] Auto Diff 10*3/uL [facility] L ab (Internal) : [address] ? ? BLD ? Rbc 5.21 10*6/uL 4.10-5.30 Final N orth 10*6/uL [facility] L ab (Internal) : [address] t ? ? BLD ? Hgb 15.1 g/dL 12.0-16.0 Final Nort h g/dL [facility] (Internal) : [address] ? ? BLD High Hct 48.0 % 37.0-47.0 Final [facility] (Internal[facility] : [address] ? ? BLD ? Mcv 92.1 fL 80.0-96.0 Final [place] fL [facility] (Internal) : [address] ? ? BLD ? Mch 29.0 pg 26.0-32.0 Final [place] pg [facility] (Internal) : [address] ? ? BLD ? Mchc 31.5 g/dL 31.0-35.0 Final Nort h g/dL [facility] (Internal[facility] : [address] ? ? BLD ? Rdw 13.1 % 11.5-14.5 Final [place] % [facility] (Internal[facility] : [address] ? ? BLD ? Plt 372 10*3/uL 130-450 Final Nort h 10*3/uL [facility] (Internal) : [address] 07/12/2020 Iron, SERUM ? Iron 88 ug/dL 37-170 Final Nort h Serum ug/dL [facility] (Internal) : [address] 07/12/2020 Lipid S High Chol 229 mg/dL 50-200 Final Nor th Panel, mg/dL [facility] (Internal) : [address] ? ? S ? Trig 75 mg/dL 10-150 Final [facility] mg/dL [facility] (Internal) : [address] ? ? S ? Hdl 59 mg/dL 40-60 Final [facility] mg/dL [facility] (Internal[facility] : [address] ? ? S High Ldl 155 mg/dL 0-130 Final [facility] mg/dL [facility] L [facility] (Internal) : [address] 07/12/2020 CMP, S ? g/r 90 mg/dL 74-106 Final Nort h Serum or mg/dL [facility] (Internal) : [address] ? ? S ? Bun 13 mg/dL 7-17 Final [facility] mg/dL [facility] (Internal) : [address] ? ? S ? Crea 1.00 mg/dL 0.52-1.04 Final Nor th mg/dL [facility] (Internal) : [address] ? ? S ? Ca 9.7 mg/dL 8.4-10.2 Final [facility] mg/dL [facility] (Internal) : [address] ? ? S ? Na 140 mmol/L 137-145 Final [facility] mmol/L [facility] (Internal) : [address] ? ? S ? K 3.8 mmol/L 3.5-5.1 Final [facility] mmol/L [facility] (Internal) : [address] ? ? S ? Cl 105 mmol/L 98-107 Final [facility] mmol/L [facility] (Internal) : [address] ? ? S ? Tco2 29.0 mmol/L 22.0-30.0 Final No rth mmol/L [facility] (Internal) : [address] ? ? S ? Tp 6.9 g/dL 6.3-8.2 Final [facility] g/dL [facility] (Internal) : [address] ? ? S ? Alb 4.1 g/dL 3.5-5.0 Final [facility] g/dL [facility] (Internal) : [address] ? ? S ? Tbil 0.5 mg/dL 0.2-1.3 Final [facility] mg/dL [facility] (Internal) : [address] ? ? S ? Alp 90 U/L 50-136 Final [facility] U/L [facility] (Internal) : [address] ? ? S ? Alt 15 U/L 9-52 U/L Final [place] (Sgpt) [facility] (Internal) : [address] ? ? S ? Ast 25 U/L 14-36 U/L Final [place] (Sgot) [facility] (Internal) : [address] 07/12/2020 CRP, High S ? Rcrp 0.10 mg/dL 0.10-0.30 Fin [facility] Sensitivi mg/dL Country ty, Serum Hospita l Lab or Plasma (Forest Supervisor al): [address] 07/12/2020 T4, Free, S ? Ft4 1.64 NG/dL 0.78-2.19 Fin [facility] Serum NG/dL [facility] Hospital L ab (Internal) : [address] 07/12/2020 Different BLD ? Polys 47 % 40-75 % Final No rth ial, [facility] Manual, Hospital Lab Blood (Internal) : [address] ? ? BLD ? Bands 1 % 0-5 % Final [facility] Hospital L ab (Internal) : [address] ? ? BLD ? Lymphs 32 % 20-50 % Final [facility] Hospital L ab (Internal) : [address] ? ? BLD High Pender 14 % 2-10 % Final [facility] Hospital L ab (Internal) : [address] ? ? BLD ? Eos 4 % 0-6 % Final [facility] Hospital L ab (Internal) : [address] ? ? BLD High Baso 2 % 0-1 % Final [facility] Hospital L ab (Internal) : [address] ? ? BLD ? Atyp 0 % ? Final [facility] L ab (Internal) : [address] ? ? BLD ? Plts, adequate adequate Final [facility] Hospital L ab (Internal) : [address] ? ? BLD ? RBC normal normal Final [facility] Hospital L ab (Internal) : [address] 07/12/2020 Neutrophi BLD ? Anc-man 3.66 10*3/uL ? Fi nal [place] l Count, ual [facility] Lab (Anc), (Internal) : Blood [address] 07/12/2020 Nlr-manua BLD ? Nlr - 1.50 0.00-3.20 Final [facility] Hospital L ab (Internal) : [address] 07/12/2020 ESR BLD ? Esr 6 mm/h 0-30 mm/h Final Nor th ([facility] L ab Sedimenta (Forest Supervisor al): tion [address] Damon [facility] Blood 07/12/2020 TSH, S ? Tsh 0.57 0.47-4.68 Final Nor th Serum or u[IU]/mL u[IU]/mL [facility] try [facility] Hospital L ab (Internal) : [address] [facility] 07/12/2020 Ferritin, S ? Ferr 26 NG/mL 11-264 Final N orth Serum or NG/mL [facility] L [facility] (Internal) : [address] [facility] 07/12/2020 Vitamin S ? Vit B12 299.0 pg/mL 239.0-931 Fi nal North B12, .0 pg/mL [facility] L [facility] (Internal) : [address] [facility] 07/12/2020 Folate, S ? Folate 9.84 NG/mL 2.76-20.0 Camila l North Serum 0 NG/mL [facility] Hospital L ab (Internal) : [address], [facility] 07/12/2020 T3, S ? T3, 98 NG/dL 97-169 Final Nort h Total, Total NG/dL [facility] L ab (Internal) : [address] [facility] 07/12/2020 Venipunct ? Locatio Right ? ? P _nc Primary ure n Antecubital Care [place]: [address], [place] ? ? ? Needle 21g ? ? P_nc Prim prashanth Vacutainer Care [place]: [address], [place] ? ? ? Number 1 ? ? P_nc Prim prashanth of Care Attempts [place]: [address], [place] ? ? ? Success Yes ? ? P_nc Maggy antonina ful Care [place]: [address], [place] ? ? ? Dressin Pressure ? ? P_nc P rimary g Band-aid Care Applied [place]: [address], [place] ? ? ? Initial hj ? ? P_nc Maggy antonina s Care [place]: [address], [place] 05/30/2019 CMP, S - g/r 103 mg/dL 74-106 Final Nor th Serum or mg/dL [facility] (Internal) : [address] ? ? S - Bun 13 mg/dL 7-17 Final [facility] mg/dL [facility] (Internal) : [address] ? ? S - Crea 0.80 mg/dL 0.52-1.04 Final [facility] mg/dL [facility] (Internal) : [address] ? ? S - Ca 10.1 mg/dL 8.4-10.2 Final Nort h mg/dL [facility] (Internal) : [address] ? ? S - Na 140 mmol/L 137-145 Final [facility] mmol/L [facility] (Internal) : [address] ? ? S - K 4.0 mmol/L 3.5-5.1 Final [facility] mmol/L [facility] (Internal) : [address] ? ? S - Cl 107 mmol/L 98-107 Final [facility] mmol/L [facility] (Internal) : [address] ? ? S - Tco2 24.0 mmol/L 22.0-30.0 Final No rth mmol/L [facility] (Internal) : [address] ? ? S - Tp 7.4 g/dL 6.3-8.2 Final [facility] g/dL [facility] (Internal) : [address] ? ? S - Alb 4.0 g/dL 3.5-5.0 Final [facility] g/dL [facility] (Internal) : [address] ? ? S - Tbil 0.5 mg/dL 0.2-1.3 Final [facility] mg/dL [facility] (Internal) : [address] ? ? S - Alp 121 U/L 50-136 Final [facility] U/L [facility] (Internal) : [address] ? ? S - Alt 15 U/L 9-52 U/L Final [facility] (Sgpt) [facility] (Internal) : [address] ? ? S - Ast 25 U/L 14-36 U/L Final [place] (Sgot) [facility] Hospital L ab (Internal) : [address] 05/30/2019 CBC W/ BLD - Wbc 5.7 10*3/uL 5.0-10.0 Final [place] Auto Diff 10*3/uL [facility] L [facility] (Internal) : [address] ? ? BLD - Rbc 5.07 10*6/uL 4.10-5.30 Final N orth 10*6/uL [facility] Hospital L ab (Internal) : [address] ? ? BLD - Hgb 14.9 g/dL 12.0-16.0 Final Nort h g/dL [facility] L ab (Internal) : [address] loc ? ? BLD - Hct 45.0 % 37.0-47.[address] [facility] L ab (Internal) : [address] ? ? BLD - Mcv 88.8 fL 80.0-96.0 Final [facility] Hospital L ab (Internal) : [address] ? ? BLD - Mch 29.4 pg 26.0-32.[address] [place] pg [facility] L ab (Internal) : [address] ? ? BLD - Mchc 33.1 g/dL 31.0-35.0 Final Nort h g/dL [facility] L ab (Internal) : [address] ? ? BLD - Rdw 13.7 % 11.5-14.[address] [facility] L ab (Internal) : [address] ? ? BLD - Plt 342 10*3/uL 130-450 Final Nort h 10*3/uL [facility] L ab (Internal) : [address] 05/30/2019 T4, Free, S - Ft4 1.50 NG/dL 0.78-2.19 Fin al [place] Serum NG/dL [facility] L ab (Internal) : [address] 05/30/2019 Different BLD - Polys 48 % 40-75 % Final No rth ial, [facility], [facility] Lab Blood (Internal) : [address], [place] ? ? BLD - Bands 0 % 0-5 % Final [facility] Hospital L ab (Internal) : [address] ? ? BLD - Lymphs 33 % 20-50 % Final [facility] Hospital L ab (Internal) : [address] ? ? BLD High Pender 11 % 2-10 % Final [facility] Hospital L ab (Internal) : [address] ? ? BLD High Eos 8 % 0-6 % Final [facility] Hospital L ab (Internal) : [address] ? ? BLD - Baso 0 % 0-1 % Final [facility] Hospital L ab (Internal) : [address] ? ? BLD - Atyp 0 % ? Final [facility] Hospital L ab (Internal) : [address] ? ? BLD - Plts, adequate adequate Final [facility] Hospital L ab (Internal) : [address] ? ? BLD - RBC normal normal Final [facility] Hospital L ab (Internal) : [address] t 05/30/2019 Neutrophi BLD - Anc-man 2.74 10*3/uL ? Fi nal [place] l Count, ua [facility] Lab (Anc), (Internal) : Blood [address] t 05/30/2019 CRP, High S High Rcrp 4.29 mg/dL 0.10-0.30 [facility] Sensitivi mg/dL Country ty, Serum Hospita l Lab or Plasma (Forest Supervisor al): [address] Dr t 05/30/2019 TSH, S - Tsh 0.69 0.47-4.68 Final Nor th Serum or u[IU]/mL u[IU]/mL Coun try Plasma Hospital L ab (Internal) : [address] t 05/30/2019 Tick-born BLD - Babesia negative negative Camila [facility] e Disease Microti Countr y [facility] Hospital L ab (Internal) : [address] t ? ? BLD - Babesia negative negative Final Nort [facility] : [address] t ? ? BLD - Babesia negative negative Final Nort h divergen [facility] Hospital L ab (Internal) : [address], [place] ? ? BLD - [place] negative negative Final Nort h ma [facility] Lab ophilum (Internal ): [address], [place] ? ? BLD - Rodney negative negative Final Nort h ia [facility] Lab sis (Internal) : [address] [place] ? ? BLD - Rodney negative negative Final Nort h ia Country [facility] Lab canis (Internal) : [address] [place] ? ? BLD - Rodney negative negative Final Nort h ia [place] [facility] Lab ensis (Internal) : [address] [place] ? ? BLD - B. negative negative Final [place] i PCR, B Hospital Lab (Internal) : [address] t 05/30/2019 Borrelia S - Lyme negative negative Final [place] Antibody Count ry ri Ab, Hospital L ab Qual (Internal) : Immunoass [address]ishna Serum Devan Diallo 05/30/2019 Venipunct ? Locatio Right ? ? P _nc Primary ure n Antecubital Care [place]: [address], [place] ? ? ? Needle 21g ? ? P_nc Prim prashanth Vacutainer Care [place]: [address], [place] ? ? ? Number 1 ? ? P_nc Prim prashanth of Care Attempts [place]: [address], [place] ? ? ? Success Yes ? ? P_nc Maggy sarkar ful Care [place]: [address], [place] ? ? ? Dressin Pressure ? ? P_nc P rimary g Band-aid Care Applied [place]: [address], [place] ? ? ? Initial rs ? ? P_nc Maggy sarkar s Care [place]: [address], [place] 05/26/2019 CBC W/ BLD - Wbc 7.9 10*3/uL 5.0-10.0 Final [place] Auto Diff 10*3/uL Countr y Hospital L ab (Internal) : [address] [place] ? ? BLD - Rbc 5.14 10*6/uL 4.10-5.30 Final N orth 10*6/uL [facility] Hospital L ab (Internal) : [address] ? ? BLD - Hgb 15.4 g/dL 12.0-16.0 Final Nort h g/dL [facility] Hospital L ab (Internal) : [address] ? ? BLD - Hct 46.2 % 37.0-47.0 Final North [facility] Hospital L ab (Internal) : [address] ? ? BLD - Mcv 89.9 fL 80.0-96.0 Final [place] fL [facility] Hospital L ab (Internal) : [address] ? ? BLD - Mch 30.0 pg 26.0-32.0 Final [place] pg [facility] Hospital L ab (Internal) : [address] ? ? BLD - Mchc 33.3 g/dL 31.0-35.0 Final Nort h g/dL [facility] Hospital L ab (Internal) : [address] t ? ? BLD - Rdw 13.6 % 11.5-14.5 Final [facility] Hospital L ab (Internal) : [address] ? ? BLD - Plt 386 10*3/uL 130-450 Final Nort h 10*3/uL [facility] Hospital L ab (Internal) : [address] ? ? BLD - Anc 4.25 10*3/uL ? Final Nort h [facility] Hospital L ab (Internal) : [address] ? ? BLD - Neutro 53.4 % 40.0-75.0 Final [facility] Hospital L ab (Internal) : [address] ? ? BLD - Lymph 31.0 % 20.0-50.0 Final [facility] Hospital L ab (Internal) : [address] ? ? BLD - Pender 9.1 % 2.0-10.0 Final [facility] Hospital L ab (Internal) : [address] ? ? BLD - Eos 4.2 % 1.0-6.0 % Final [facility] Hospital L ab (Internal) : [address] ? ? BLD High Baso 1.9 % 0.0-1.0 % Final [facility] Hospital L ab (Internal) : [address] ? ? BLD - Ig 0.4 % 0.0-0.9 % Final [facility] Hospital L ab (Internal) : [address] 05/26/2019 CMP, S - g/r 103 mg/dL 74-106 Final Nor th Serum or mg/dL Country Plasma Hospital L ab (Internal) : [address] t ? ? S - Bun 15 mg/dL 7-17 Final North mg/dL [facility] Hospital L ab (Internal) : [address] t ? ? S - Crea 0.80 mg/dL 0.52-1.04 Final Nor th mg/dL [facility] Hospital L ab (Internal) : [address] t ? ? S - Ca 9.8 mg/dL 8.4-10.2 Final North mg/dL [facility] Hospital L ab (Internal) : [address] t ? ? S - Na 140 mmol/L 137-145 Final North mmol/L [facility] Hospital L ab (Internal) : [address] ? ? S - K 3.8 mmol/L 3.5-5.1 Final North mmol/L [facility] Hospital L ab (Internal) : [address] t ? ? S - Cl 107 mmol/L 98-107 Final North mmol/L [facility] Hospital L ab (Internal) : [address] t ? ? S - Tco2 26.0 mmol/L 22.0-30.0 Final No rth mmol/L [facility] Hospital L ab (Internal) : [address] t ? ? S - Tp 7.3 g/dL 6.3-8.2 Final North g/dL [facility] L ab (Internal) : [address] t ? ? S - Alb 4.0 g/dL 3.5-5.0 Final North g/dL [facility] L ab (Internal) : [address] t ? ? S - Tbil 0.4 mg/dL 0.2-1.3 Final North mg/dL [facility] Hospital L ab (Internal) : [address] loc ? ? S - Alp 117 U/L 50-136 Final [place] U/L [facility] Hospital L ab (Internal) : [address] loc ? ? S - Alt 15 U/L 9-52 U/L Final [place] (Sgpt) [facility] Hospital L ab (Internal) : [address] ? ? S - Ast 30 U/L 14-36 U/L Final [place] (Sgot) [facility] Hospital L ab (Internal) : [address] loc 05/26/2019 CK S - Cpk 71 U/L 30-135 Final [place] (Creatine U/L Country Kinase), Hospital Lab Total, (Internal) : Serum [address] mon[address]so 05/26/2019 Troponin S - Trop <0.06 NG/mL 0.00-0.06 Fin al [place] I, Serum NG/mL Country or Plasma Hospita l Lab (Internal) : [address] 05/26/2019 ESR BLD - Esr 7 mm/h 0-30 mm/h Final Nor th (Erythroc Country [facility] Hospital L ab Sedimenta (Forest Supervisor al): tion [address], [place] Blood 02/18/2019 CBC W/ BLD - Wbc 6.3 10*3/uL 5.0-10.0 Final [place] Auto Diff 10*3/uL [facility] Hospital L ab (Internal) : [address] ? ? BLD - Rbc 5.24 10*6/uL 4.10-5.30 Final N orth 10*6/uL [facility] Hospital L ab (Internal) : [address] ? ? BLD - Hgb 15.1 g/dL 12.0-16.0 Final Nort h g/dL [facility] Hospital L ab (Internal) : [address] ? ? BLD - Hct 46.6 % 37.0-47.0 Final [place] % [facility] Hospital L ab (Internal) : [address] ? ? BLD - Mcv 88.9 fL 80.0-96.0 Final [facility] Hospital L ab (Internal) : [address] ? ? BLD - Mch 28.8 pg 26.0-32.0 Final [facility] L ab (Internal) : [address] t ? ? BLD - Mchc 32.4 g/dL 31.0-35.0 [facility] L ab (Internal) : [address] ? ? BLD - Rdw 13.8 % 11.5-14.[address] [facility] L ab (Internal) : [address] ? ? BLD - Plt 342 10*3/uL 130-450 Final Nort h 10*3/uL [facility] L ab (Internal) : [address] ? ? BLD - Anc 3.14 10*3/uL ? Final Nort h [facility] L ab (Internal) : [address] ? ? BLD - Neutro 50.3 % 40.0-75.[address] [facility] L ab (Internal) : [address] ? ? BLD - Lymph 29.9 % 20.0-50.[address] [facility] L ab (Internal) : [address] ? ? BLD High Pender 11.5 % 2.0-10.[address] [facility] L ab (Internal) : [address] ? ? BLD - Eos 5.8 % 1.0-6.0 % Final [facility] L ab (Internal) : [address] ? ? BLD High Baso 2.2 % 0.0-1.0 % Final [facility] L ab (Internal) : [address] ? ? BLD - Ig 0.3 % 0.0-0.9 % Final [facility] L ab (Internal) : [address] 02/18/2019 T4, Free, S - Ft4 1.46 NG/dL 0.78-2.19 Fin al North Serum NG/dL [facility] L ab (Internal) : [address] 02/18/2019 TSH, S Low Tsh 0.36 0.47-4.68 Final [facility] Serum or u[IU]/mL u[IU]/mL Coun [facility] Hospital L ab (Internal) : [address] 02/18/2019 Venipunct ? Locatio Right ? ? P _nc Primary ure n Antecubital Care [place]: [address], [place] ? ? ? Needle 21g ? ? P_nc Prim prashanth Vacutainer Care [place]: [address], [place] ? ? ? Number 1 ? ? P_nc Prim prashanth of Care Attempts [place]le[place]: [address], [place] ? ? ? Success Yes ? ? P_nc Maggy antonina ful Care [place]: [address], [place] ? ? ? Dressin Pressure ? ? P_nc P rimary g Band-aid Care Applied [place]: [address], [place] ? ? ? Initial hj ? ? P_nc Maggy sarkar s Care [place]: [address], [place] 2018 CBC W/ BLD - Wbc 8.8 10*3/uL 5.0-10.0 Final [place] Auto Diff 10*3/uL [facility] L ab (Internal) : [address] ? ? BLD - Rbc 5.02 10*6/uL 4.10-5.30 Final N orth 10*6/uL [facility] L ab (Internal) : [address] ? ? BLD - Hgb 14.6 g/dL 12.0-16.0 Final Nort h g/dL [facility] L ab (Internal) : [address] ? ? BLD - Hct 44.2 % 37.0-47.[address] [facility] L ab (Internal) : [address] ? ? BLD - Mcv 88.0 fL 80.0-96.0 Final [facility] L ab (Internal) : [address] ? ? BLD - Mch 29.1 pg 26.0-32.0 Final [facility] L ab (Internal) : [address] ? ? BLD - Mchc 33.0 g/dL 31.0-35.0 Final Nort h g/dL [facility] L ab (Internal) : [address] ? ? BLD - Rdw 12.9 % 11.5-14.[address] [facility] L ab (Internal) : [address] ? ? BLD - Plt 377 10*3/uL 130-450 Final Nort h 10*3/uL [facility] Hospital L ab (Internal) : [address] ? ? BLD - Anc 5.65 10*3/uL ? Final Nort [facility] L ab (Internal) : [address] ? ? BLD - Neutro 64.3 % 40.0-75.[address] [facility] L ab (Internal) : [address] ? ? BLD Low Lymph 16.1 % 20.0-50.[address] [facility] L ab (Internal) : [address] ? ? BLD High Pender 11.9 % 2.0-10.[address] [facility] L ab (Internal) : [address] ? ? BLD - Eos 4.5 % 1.0-6.0 % Final [facility] L ab (Internal) : [address] ? ? BLD High Baso 1.9 % 0.0-1.0 % Final [facility] L ab (Internal) : [address] ? ? BLD High Ig 1.3 % 0.0-0.9 % Final [facility] L ab (Internal) : [address] 2018 HbA1C BLD High Ha1C 6.1 % 4.0-6.0 % Final [facility] (Hemoglob Country in a1C), Hospital Lab Blood (Internal) : [address] 2018 CBC W/ BLD - Wbc 8.8 10*3/uL 5.0-10.0 Final [place] Auto Diff 10*3/uL [facility] Hospital L ab (Internal) : [address] t ? ? BLD - Rbc 5.02 10*6/uL 4.10-5.30 Final N orth 10*6/uL [facility] Hospital L ab (Internal) : [address] t ? ? BLD - Hgb 14.6 g/dL 12.0-16.0 Final Nort h g/dL [facility] Hospital L ab (Internal) : [address] ? ? BLD - Hct 44.2 % 37.0-47.0 Final [facility] Hospital L ab (Internal) : [address] ? ? BLD - Mcv 88.0 fL 80.0-96.0 Final [facility] Hospital L ab (Internal) : [address] ? ? BLD - Mch 29.1 pg 26.0-32.0 Final [facility] Hospital L ab (Internal) : [address] ? ? BLD - Mchc 33.0 g/dL 31.0-35.0 Final Nort h g/dL [facility] Hospital L ab (Internal) : [address] t ? ? BLD - Rdw 12.9 % 11.5-14.[address] [facility] L ab (Internal) : [address] ? ? BLD - Plt 377 10*3/uL 130-450 Final Nort h 10*3/uL [facility] Hospital L ab (Internal) : [address] t ? ? BLD - Anc 5.65 10*3/uL ? Final Nort h [facility] Hospital L ab (Internal) : [address] ? ? BLD - Neutro 64.3 % 40.0-75.[address] [facility] L ab (Internal) : [address] ? ? BLD Low Lymph 16.1 % 20.0-50.0 Final [facility] Hospital L ab (Internal) : [address] ? ? BLD High Pender 11.9 % 2.0-10.0 Final [facility] Hospital L ab (Internal) : [address] ? ? BLD - Eos 4.5 % 1.0-6.0 % Final [facility] L ab (Internal) : [address] ? ? BLD High Baso 1.9 % 0.0-1.0 % Final [facility] Hospital L ab (Internal) : [address] ? ? BLD High Ig 1.3 % 0.0-0.9 % Final [facility] Hospital L ab (Internal) : [address] t 2018 Urinalysi UR - UA-colo yellow pale Final N orth s, r yellow [facility] Hospital Lab (Internal) : [address] t ? ? UR - UA-appe clear clear Final [facility] Hospital L ab (Internal) : [address] t ? ? UR - UA-spec 1.010 1.003-1.0 Final [place] Grav 35 [facility] Hospital L ab (Internal) : [address] t ? ? UR - UA-pH 7.0 [pH] 4.6-8.0 Final [place] [pH] [facility] Hospital L ab (Internal) : [address] t ? ? UR - UA-leuk negative negative Final Nort h Est [facility] L ab (Internal) : [address] t ? ? UR - UA-nitr negative negative Final Nort h ite [facility] L ab (Internal) : [address] t ? ? UR - UA-prot negative negative Final Nort h [facility] L ab (Internal) : [address] t ? ? UR - UA-gluc negative negative Final Nort h [facility] L ab (Internal) : [address] t ? ? UR - UA-keto negative negative Final Nort h ne [facility] L ab (Internal) : [address] t ? ? UR ABNORM UA-urob positive normal Final [place] [facility] Hospital L ab (Internal) : [address] t ? ? UR - UA-bili negative negative Final Nort h [facility] L ab (Internal) : [address] t ? ? UR - UA-bloo negative negative Final Nort h d [facility] L ab (Internal) : [address] t ? ? UR - UA-WBC 0-3 [hpf] 0-3 [hpf] Final [facility] Hospital L ab (Internal) : [address] t ? ? UR - UA-RBC 0-2 [hpf] 0-2 [hpf] Final Nor th [facility] L ab (Internal) : [address] ? ? UR - UA-bact rare [hpf] none seen Final N orth eria [hpf] [facility] L ab (Internal) : [address] ? ? UR ABNORM UA-epit few [hpf] none seen Final No rth [place] helial [hpf] [facility] L ab (Internal) : [address] ? ? UR ABNORM UA-mucu rare [hpf] none seen Final N orth AL s [hpf] [facility] L ab (Internal) : [address] 2018 TSH, S Low Tsh 0.23 0.47-4.68 Final Nor th Serum or u[IU]/mL u[IU]/mL Coun try Plasma Hospital L ab (Internal) : [address] 2018 Ferritin, S - Ferr 25 NG/mL 11-264 Final N orth Serum or NG/mL [facility] Plasma [facility] L ab (Internal) : [address] 2018 CMP, S - g/r 98 mg/dL 74-106 Final Nort h Serum or mg/dL [facility] Plasma Hospital L ab (Internal) : [address] ? ? S - Bun 11 mg/dL 7-17 Final North mg/dL [facility] L ab (Internal) : [address] ? ? S - Crea 0.80 mg/dL 0.52-1.04 Final Nor th mg/dL [facility] L ab (Internal) : [address] ? ? S - Ca 9.9 mg/dL 8.4-10.2 Final [place] mg/dL [facility] L ab (Internal) : [address] ? ? S - Na 141 mmol/L 137-145 Final [place] mmol/L [facility] L ab (Internal) : [address] ? ? S - K 4.0 mmol/L 3.5-5.1 Final [place] mmol/L [facility] L ab (Internal) : [address] ? ? S - Cl 107 mmol/L 98-107 Final [place] mmol/L [facility] Hospital L ab (Internal) : [address], [place] ? ? S - Tco2 27.0 mmol/L 22.0-30.0 Final No rth mmol/L [facility] Hospital L ab (Internal) : [address] t ? ? S - Tp 6.9 g/dL 6.3-8.2 Final [place] g/dL [facility] Hospital L ab (Internal) : [address] ? ? S - Alb 3.9 g/dL 3.5-5.0 Final [place] g/dL [facility] Hospital L ab (Internal) : [address] t ? ? S - Tbil 0.6 mg/dL 0.2-1.3 Final [place] mg/dL [facility] Hospital L ab (Internal) : [address] ? ? S - Alp 129 U/L 50-136 Final North U/L [facility] L ab (Internal) : [address] ? ? S - Alt 17 U/L 9-52 U/L Final [place] (Sgpt) [facility] L ab (Internal) : [address] ? ? S - Ast 26 U/L 14-36 U/L Final [place] (Sgot) [facility] Hospital L ab (Internal) : [address] 2018 Lipid S - Chol 192 mg/dL 50-200 Final Nor th Panel, mg/dL [facility] Hospital L ab (Internal) : [address] ? ? S - Trig 78 mg/dL 10-150 Final [place] mg/dL [facility] Hospital L ab (Internal) : [address] ? ? S - Hdl 50 mg/dL 40-60 Final [place] mg/dL [facility] Hospital L ab (Internal) : [address] ? ? S - Ldl 126 mg/dL 0-130 Final North mg/dL [facility] L ab (Internal) : [address] 2018 Iron, SERUM - Iron 54 ug/dL 37-170 Final Nort h Serum ug/dL [facility] L ab (Internal) : [address] 2018 Thyroid S Low Tsh 0.23 0.47-4.68 Final No rth [place], u[IU]/mL u[IU]/mL Coun [facility] Serum Hospital L ab (Internal) : [address] [facility] 2018 T4, Free, S - Ft4 1.87 NG/dL 0.78-2.19 Fin [facility] Serum NG/dL [facility] L ab (Internal) : [address] [facility] 2018 T4, Free, S - Ft4 1.87 NG/dL 0.78-2.19 Fin [facility] Serum NG/dL [facility] L ab (Internal) : [address] [facility] 10/04/2018 Lipid S High Chol 254 mg/dL 50-200 Final Nor th Panel, mg/dL [facility] Serum [facility] L ab (Internal) : [address] [facility] ? ? S - Trig 88 mg/dL 10-150 Final [place] mg/dL [facility] L ab (Internal) : [address] [facility] ? ? S - Hdl 49 mg/dL 40-60 Final [place] mg/dL [facility] L ab (Internal) : [address] [facility] ? ? S High Ldl 187 mg/dL 0-130 Final [place] mg/dL [facility] L ab (Internal) : [address] [facility] 10/04/2018 T4, Free, S - Ft4 1.77 NG/dL 0.78-2.19 Fin [facility] Serum NG/dL [facility] L ab (Internal) : [address] [facility] 10/04/2018 TSH, S Low Tsh 0.31 0.47-4.68 Final Nor th Serum or u[IU]/mL u[IU]/mL Coun [facility] Plasma [facility] L ab (Internal) : [address] [facility] t 09/17/2018 CBC W/ BLD - Wbc 7.5 10*3/uL 5.0-10.0 Final [place] Auto Diff 10*3/uL [facility] L ab (Internal) : [address] [facility] ? ? BLD - Rbc 4.99 10*6/uL 4.10-5.30 Final N orth 10*6/uL [facility] L ab (Internal) : [address] t ? ? BLD - Hgb 14.3 g/dL 12.0-16.0 Final Nort h g/dL [facility] L ab (Internal) : [address] ? ? BLD - Hct 44.3 % 37.0-47.0 Final [facility] Hospital L ab (Internal) : [address] ? ? BLD - Mcv 88.8 fL 80.0-96.0 Final [facility] Hospital L ab (Internal) : [address] ? ? BLD - Mch 28.7 pg 26.0-32.0 Final [place] pg [facility] Hospital L ab (Internal) : [address] ? ? BLD - Mchc 32.3 g/dL 31.0-35.0 Final Nort h g/dL [facility] Hospital L ab (Internal) : [address] ? ? BLD - Rdw 14.1 % 11.5-14.5 Final [facility] Hospital L ab (Internal) : [address] t ? ? BLD - Plt 397 10*3/uL 130-450 Final Nort h 10*3/uL [facility] Hospital L ab (Internal) : [address] ? ? BLD - Anc 4.01 10*3/uL ? Final Nort h [facility] Hospital L ab (Internal) : [address] Dev[address] t ? ? BLD - Neutro 53.3 % 40.0-75.0 Final [facility] Hospital L ab (Internal) : [address] t ? ? BLD - Lymph 32.4 % 20.0-50.0 Final [facility] Hospital L ab (Internal) : [address] ? ? BLD - Pender 8.5 % 2.0-10.0 Final [facility] Hospital L ab (Internal) : [address] ? ? BLD - Eos 3.7 % 1.0-6.0 % Final [facility] Hospital L ab (Internal) : [address] ? ? BLD High Baso 2.0 % 0.0-1.0 % Final [facility] Hospital L ab (Internal) : [address] ? ? BLD - Ig 0.1 % 0.0-0.9 % Final [facility] Hospital L ab (Internal) : [address] 09/17/2018 CMP, S - g/r 104 mg/dL 74-106 Final Nor th Serum or mg/dL [facility] Plasma Hospital L ab (Internal) : [address] ? ? S - Bun 13 mg/dL 7-17 Final [place] mg/dL [facility] L ab (Internal) : [address] ? ? S - Crea 0.70 mg/dL 0.52-1.04 Final Nor th mg/dL [facility] L ab (Internal) : [address] ? ? S - Ca 9.8 mg/dL 8.4-10.2 Final [place] mg/dL [facility] L ab (Internal) : [address] t ? ? S - Na 137 mmol/L 137-145 Final [place] mmol/L [facility] L ab (Internal) : [address] t ? ? S - K 4.0 mmol/L 3.5-5.1 Final [place] mmol/L [facility] L ab (Internal) : [address] t ? ? S High Cl 108 mmol/L 98-107 Final [place] mmol/L [facility] L ab (Internal) : [address] ? ? S - Tco2 24.0 mmol/L 22.0-30.0 Final No rth mmol/L [facility] L ab (Internal) : [address] t ? ? S - Tp 7.2 g/dL 6.3-8.2 Final [place] g/dL [facility] L ab (Internal) : [address] t ? ? S - Alb 4.0 g/dL 3.5-5.0 Final [place] g/dL [facility] L ab (Internal) : [address] t ? ? S - Tbil 0.6 mg/dL 0.2-1.3 Final [place] mg/dL [facility] L ab (Internal) : [address] t ? ? S - Alp 97 U/L 50-136 Final [place] U/L [facility] L ab (Internal) : [address] t ? ? S - Alt 23 U/L 9-52 U/L Final [facility] (Sgpt) [facility] L ab (Internal) : [address], [place] ? ? S - Ast 24 U/L 14-36 U/L Final North (Sgot) [facility] Hospital L ab (Internal) : [address] 09/17/2018 ESR BLD - Esr 24 mm/h 0-30 mm/h Final No rth (Erythroc [facility] yte Hospital L ab Sedimenta (Forest Supervisor al): tion [address], [place] Blood 07/26/2018 Culture UR - Final microbiology ? Final [place] ([place] results Country Count), Hospital Lab Urine (Internal) : [address] 07/15/2018 Lipid S High Chol 210 mg/dL 50-200 Final Nor th Panel, mg/dL [facility] Serum Hospital L ab (Internal) : [address] ? ? S - Trig 73 mg/dL 10-150 Final North mg/dL [facility] Hospital L ab (Internal) : [address] ? ? S - Hdl 51 mg/dL 40-60 Final [place] mg/dL [facility] Hospital L ab (Internal) : [address] ? ? S High Ldl 144 mg/dL 0-130 Final North mg/dL [facility] (Internal) : [address] 07/15/2018 T4, Free, S - Ft4 1.79 NG/dL 0.78-2.19 Fin al [place] Serum NG/dL [facility] (Internal) : [address] 07/15/2018 TSH, S Low Tsh 0.41 0.47-4.68 Final Nor th Serum or u[IU]/mL u[IU]/mL Coun [facility] (Internal) : [address] 06/07/2018 Urinalysi UR - UA-colo yellow pale Final N orth s, r yellow [facility] Lab Reflex (Internal) : Micro [address] ? ? UR - UA-appe clear clear Final North ar [facility] L ab (Internal) : [address] ? ? UR - UA-spec 1.025 1.003-1.0 Final North Grav 35 [facility] L ab (Internal) : [address] t ? ? UR - UA-pH 5.5 [pH] 4.6-8.0 Final [place] [pH] [facility] L ab (Internal) : [address] t ? ? UR ABNORM UA-leuk small negative Final [place] AL Est [facility] L ab (Internal) : [address] t ? ? UR - UA-nitr negative negative Final Nort h ite [facility] L ab (Internal) : [address] t ? ? UR - UA-prot negative negative Final Nort h [facility] L ab (Internal) : [address] t ? ? UR - UA-gluc negative negative Final Nort h [facility] L ab (Internal) : [address] t ? ? UR - UA-keto negative negative Final Nort h [facility] L ab (Internal) : [address] t ? ? UR - UA-urob normal normal Final [facility] L ab (Internal) : [address] t ? ? UR - UA-bili negative negative Final Nort h [facility] L ab (Internal) : [address] t ? ? UR ABNORM UA-bloo small negative Final [facility] L ab (Internal) : [address] 06/07/2018 CBC W/ BLD - Wbc 7.9 10*3/uL 5.0-10.0 Final [place] Auto Diff 10*3/uL [facility] L ab (Internal) : [address] ? ? BLD - Rbc 5.19 10*6/uL 4.10-5.30 Final N orth 10*6/uL [facility] L ab (Internal) : [address] ? ? BLD - Hgb 15.0 g/dL 12.0-16.0 Final Nort h g/dL [facility] L ab (Internal) : [address] t ? ? BLD - Hct 46.5 % 37.0-47.[address] [facility] L ab (Internal) : [address] ? ? BLD - Mcv 89.6 fL 80.0-96.0 Final [facility] fL [facility] (Internal) : [address] ? ? BLD - Mch 28.9 pg 26.0-32.0 Final [place] pg [facility] L ab (Internal) : [address] ? ? BLD - Mchc 32.3 g/dL 31.0-35.0 Final Nort h g/dL [facility] L ab (Internal) : [address] [place] t ? ? BLD - Rdw 12.9 % 11.5-14.5 Final [facility] L ab (Internal) : [address] t ? ? BLD - Plt 389 10*3/uL 130-450 Final Nort h 10*3/uL [facility] L ab (Internal) : [address] ? ? BLD - Anc 4.10 10*3/uL ? Final Nort h [facility] L ab (Internal) : [address] ? ? BLD - Neutro 52.2 % 40.0-75.0 Final [facility] L ab (Internal) : [address] t ? ? BLD - Lymph 31.4 % 20.0-50.0 Final [facility] L ab (Internal) : [address], [place] ? ? BLD - Pender 9.4 % 2.0-10.[address] [facility] L ab (Internal) : [address], [place] [address] ? ? BLD - Eos 4.6 % 1.0-6.0 % Final [facility] L ab (Internal) : [address], [place] ? ? BLD High Baso 2.0 % 0.0-1.0 % Final [facility] L ab (Internal) : [address], [place] ? ? BLD - Ig 0.4 % 0.0-0.9 % Final [facility] L ab (Internal) : [address] 06/07/2018 CMP, S - g/r 106 mg/dL 74-106 Final Nor th Serum or mg/dL [facility] L ab (Internal) : [address] ? ? S - Bun 10 mg/dL 7-17 Final [place] mg/dL [facility] L ab (Internal) : [address], [place] ? ? S - Crea 0.80 mg/dL 0.52-1.04 Final Nor th mg/dL [facility] L ab (Internal) : [address] ? ? S - Ca 9.8 mg/dL 8.4-10.2 Final North mg/dL [facility] L ab (Internal) : [address] t ? ? S - Na 142 mmol/L 137-145 Final North mmol/L [facility] L ab (Internal) : [address] ? ? S - K 3.9 mmol/L 3.5-5.1 Final [facility] mmol/L [facility] L [facility] (Internal) : [address] t ? ? S - Cl 107 mmol/L 98-107 Final [place] mmol/L [facility] L ab (Internal) : [address] t ? ? S - Tco2 26.0 mmol/L 22.0-30.0 Final No rth mmol/L [facility] L ab (Internal) : [address] t ? ? S - Tp 7.3 g/dL 6.3-8.2 Final North g/dL [facility] L ab (Internal) : [address] t ? ? S - Alb 4.3 g/dL 3.5-5.0 Final North g/dL [facility] L ab (Internal) : [address] t ? ? S - Tbil 0.5 mg/dL 0.2-1.3 Final [place] mg/dL [facility] L ab (Internal) : [address] t ? ? S - Alp 97 U/L 50-136 Final North U/L [facility] L ab (Internal) : [address] t ? ? S - Alt 24 U/L 9-52 U/L Final [place] (Sgpt) [facility] L ab (Internal) : [address] t ? ? S - Ast 28 U/L 14-36 U/L Final [place] (Sgot) [facility] L ab (Internal) : [address] 06/07/2018 Urinalysi UR - UA-WBC 0-3 [hpf] 0-3 [hpf] Fin al [place] s, [facility] Lab ic (Internal) : [address] ? ? UR - UA-RBC 0-2 [hpf] 0-2 [hpf] Final [facility] L ab (Internal) : [address], [place] ? ? UR - UA-bact rare [hpf] none seen Final N orth eria [hpf] [facility] L ab (Internal) : [address] [place] ? ? UR ABNORM UA-epit moderate none seen Final [facility] [place] helial [hpf] [hpf] [facility] L ab (Internal) : [address] [place] ? ? UR - UA-mucu none seen none seen Final No rth s [hpf] [hpf] [facility] L ab (Internal) : [address] [place] ? ? UR - Amorph few [hpf] ? Final [facility] L ab (Internal) : [address] t ? ? UR - Hyaline rare [hpf] ? Final [facility] L ab (Internal) : [address] t ? ? UR - Granula rare [hpf] ? Final [facility] L ab (Internal) : [address] t 06/07/2018 Troponin S - Trop <0.06 NG/mL 0.00-0.06 Fin [facility] I, Serum NG/mL [facility] Lab (Internal) : [address] t 06/07/2018 D-dimer, PLASMA - Dimq 0.34 mg/L 0.00-0.50 [facility] Quant, mg/L [facility] L ab (Internal) : [address] t 05/28/2018 Urinalysi UR - UA-colo pale yellow pale Fin [facility] s, r yellow [facility] Lab (Internal) : [address] t ? ? UR - UA-appe clear clear Final [facility] L ab (Internal) : [address] ? ? UR - UA-spec <=1.005 1.003-1.0 Final [facility] Grav 35 [facility] L ab (Internal) : [address] ? ? UR - UA-pH 6.5 [pH] 4.6-8.0 Final [place] [pH] [facility] : [address] [place] [address] ? ? UR ABNORM UA-leuk small negative Final [place] Est [facility] (Internal) : [address] [place] ? ? UR - UA-nitr negative negative Final Nort h ite [facility] (Internal) : [address] ? ? UR - UA-prot negative negative Final Nort [facility] (Internal) : [address], [place] ? ? UR - UA-gluc negative negative Final Nort [facility] (Internal) : [address], [place] ? ? UR - UA-keto negative negative Final Nort h ne [facility] (Internal) : [address] [place] ? ? UR - UA-urob normal normal Final [facility] ab (Internal) : [address] ? ? UR - UA-bili negative negative Final Nort h [facility] (Internal) : [address], [place] ? ? UR ABNORM UA-bloo large negative Final North [place] d [facility] (Internal) : [address] ? ? UR ABNORM UA-WBC 10-25 [hpf] 0-3 [hpf] Final N orth AL [facility] (Internal) : [address] t ? ? UR - UA-RBC 0-2 [hpf] 0-2 [hpf] Final [place] [facility] (Internal) : [address] ? ? UR ABNORM UA-bact moderate none seen Final Nor [place] eria [hpf] [hpf] [facility] (Internal) : [address] ? ? UR ABNORM UA-epit moderate none seen Final Nor [place] helial [hpf] [hpf] [facility] (Internal) : [address] ? ? UR - UA-mucu none seen none seen Final No rth s [hpf] [hpf] [facility] (Internal) : [address] t 05/28/2018 Culture UR - Final microbiology ? Final [place] ([place] results Country Count), Hospital Lab Urine (Internal) : [address] 05/08/2018 CBC W/ BLD - Wbc 9.0 10*3/uL 5.0-10.0 Final [place] Auto Diff 10*3/uL [facility] L ab (Internal) : [address] ? ? BLD - Rbc 4.56 10*6/uL 4.10-5.30 Final N orth 10*6/uL [facility] L ab (Internal) : [address] t ? ? BLD - Hgb 13.5 g/dL 12.0-16.0 Final Nort h g/dL [facility] L ab (Internal) : [address] loc ? ? BLD - Hct 42.6 % 37.0-47.0 Final [facility] L ab (Internal) : [address] ? ? BLD - Mcv 93.4 fL 80.0-96.0 Final [facility] L ab (Internal) : [address], [address] t ? ? BLD - Mch 29.6 pg 26.0-32.0 Final [facility] Hospital L ab (Internal) : [address], [address] t ? ? BLD - Mchc 31.7 g/dL 31.0-35.0 Final Nort h g/dL [facility] L ab (Internal) : [address] ? ? BLD - Rdw 13.1 % 11.5-14.5 Final [facility] L ab (Internal) : [address] ? ? BLD - Plt 398 10*3/uL 130-450 Final Nort h 10*3/uL [facility] L ab (Internal) : [address] ? ? BLD - Anc 5.85 10*3/uL ? Final Nort h [facility] L ab (Internal) : [address] t ? ? BLD - Neutro 64.9 % 40.0-75.0 Final [facility] L ab (Internal) : [address] ? ? BLD Low Lymph 17.5 % 20.0-50.0 Final [facility] L ab (Internal) : [address] t ? ? BLD - Pender 8.9 % 2.0-10.0 Final [facility] L ab (Internal) : [address] t ? ? BLD High Eos 6.7 % 1.0-6.0 % Final [facility] L ab (Internal) : [address] t ? ? BLD High Baso 1.6 % 0.0-1.0 % Final [facility] L ab (Internal) : [address] t ? ? BLD - Ig 0.4 % 0.0-0.9 % Final [facility] L ab (Internal) : [address] t 05/08/2018 Urinalysi UR - UA-colo yellow pale Final N orth s, r yellow [facility] Lab Reflex (Internal) : Micro [address] t ? ? UR - UA-appe clear clear Final [facility] L ab (Internal) : [address] t ? ? UR - UA-spec 1.020 1.003-1.[address] [facility] L ab (Internal) : [address] t ? ? UR - UA-pH 6.0 [pH] 4.6-8.0 Final [place] [pH] [facility] L ab (Internal) : [address] t ? ? UR - UA-leuk negative negative Final Nort h [facility] L ab (Internal) : [address] t ? ? UR - UA-nitr negative negative Final Nort h ite [facility] L ab (Internal) : [address] t ? ? UR - UA-prot negative negative Final Nort h [facility] L ab (Internal) : [address] t ? ? UR - UA-gluc negative negative Final Nort h [facility] L ab (Internal) : [address] t ? ? UR - UA-keto negative negative Final Nort h [facility] L ab (Internal) : [address] t ? ? UR - UA-urob normal normal Final [facility] L ab (Internal) : [address] t ? ? UR - UA-bili negative negative Final Nort h [facility] L ab (Internal) : [address] ? ? UR ABNORM UA-bloo moderate negative Final Nort h AL d [facility] L ab (Internal) : [address] 05/08/2018 Urinalysi UR - UA-WBC 0-3 [hpf] 0-3 [hpf] Fin al North s, [facility] Lab ic (Internal) : [address] ? ? UR ABNORM UA-RBC 25-50 [hpf] 0-2 [hpf] Final N orth AL [facility] L ab (Internal) : [address] ? ? UR - UA-bact rare [hpf] none seen Final N orth eria [hpf] [facility] L ab (Internal) : [address] ? ? UR ABNORM UA-epit few [hpf] none seen Final No rth AL helial [hpf] [facility] L ab (Internal) : [address] ? ? UR ABNORM UA-mucu few [hpf] none seen Final No rth AL s [hpf] [facility] L ab (Internal) : [address] 05/08/2018 CMP, S - g/r 96 mg/dL 74-106 Final Nort h Serum or mg/dL [facility] L ab (Internal) : [address] ? ? S - Bun 8 mg/dL 7-17 Final North mg/dL [facility] L ab (Internal) : [address] ? ? S - Crea 0.80 mg/dL 0.52-1.04 Final Nor th mg/dL [facility] L ab (Internal) : [address] ? ? S - Ca 9.3 mg/dL 8.4-10.2 Final North mg/dL [facility] L ab (Internal) : [address] ? ? S - Na 142 mmol/L 137-145 Final North mmol/L [facility] L ab (Internal) : [address] ? ? S - K 3.9 mmol/L 3.5-5.1 Final North mmol/L [facility] L ab (Internal) : [address] ? ? S High Cl 108 mmol/L 98-107 Final [place] mmol/L [facility] L ab (Internal) : [address] t ? ? S - Tco2 26.0 mmol/L 22.0-30.0 Final No rth mmol/L [facility] L ab (Internal) : [address] t ? ? S - Tp 6.8 g/dL 6.3-8.2 Final [place] g/dL [facility] L ab (Internal) : [address] t ? ? S - Alb 3.9 g/dL 3.5-5.0 Final [place] g/dL [facility] L ab (Internal) : [address] ? ? S - Tbil 0.5 mg/dL 0.2-1.3 Final [place] mg/dL [facility] L ab (Internal) : [address] ? ? S - Alp 80 U/L 50-136 Final [place] U/L [facility] L ab (Internal) : [address] ? ? S - Alt <10 U/L 9-52 U/L Final [place] (Sgpt) [facility] L ab (Internal) : [address] ? ? S - Ast 20 U/L 14-36 U/L Final [place] (Sgot) [facility] L ab (Internal) : [address] 05/03/2018 Pathology TISS - Report results ? Final N orth Study below [facility] L ab (Internal) : [address] 04/30/2018 CBC W/ BLD High Wbc 11.5 10*3/uL 5.0-10.0 Final [place] Auto Diff 10*3/uL [facility] L ab (Internal) : [address] ? ? BLD - Rbc 4.60 10*6/uL 4.10-5.30 Final N orth 10*6/uL [facility] L ab (Internal) : [address] ? ? BLD - Hgb 13.7 g/dL 12.0-16.0 Final Nort h g/dL [facility] L ab (Internal) : [address] ? ? BLD - Hct 41.9 % 37.0-47.0 Final [facility] L ab (Internal) : [address] ? ? BLD - Mcv 91.1 fL 80.0-96.0 Final [facility] Hospital L ab (Internal) : [address] ? ? BLD - Mch 29.8 pg 26.0-32.0 Final [facility] Hospital L ab (Internal) : [address] ? ? BLD - Mchc 32.7 g/dL 31.0-35.0 [facility] L ab (Internal) : [address] ? ? BLD - Rdw 13.1 % 11.5-14.5 Final [facility] L ab (Internal) : [address] ? ? BLD - Plt 424 10*3/uL 130-450 Final Nort h 10*3/uL [facility] L ab (Internal) : [address], [place] ? ? BLD - Anc 7.66 10*3/uL ? Final [facility] L ab (Internal) : [address] ? ? BLD - Neutro 66.3 % 40.0-75.[address] [facility] L ab (Internal) : [address] ? ? BLD - Lymph 20.2 % 20.0-50.[address] [facility] L ab (Internal) : [address] ? ? BLD - Pender 9.4 % 2.0-10.[address] [facility] L ab (Internal) : [address], [place] [address] ? ? BLD - Eos 2.3 % 1.0-6.0 % Final [facility] L ab (Internal) : [address] t ? ? BLD High Baso 1.5 % 0.0-1.0 % Final [facility] Hospital L ab (Internal) : [address] ? ? BLD - Ig 0.3 % 0.0-0.9 % Final [facility] L ab (Internal) : [address] t 04/30/2018 Type + BLD - Abo A ? Final [facility] L ab (Internal) : [address] ? ? BLD - Rh positive ? Final [facility] L ab (Internal) : [address] ? ? BLD - Ab Scrn negative negative Final Nort h [facility] L ab (Internal) : [address] 04/24/2018 CBC W/ BLD High Wbc 10.2 10*3/uL 5.0-10.0 Final [place] Auto Diff 10*3/uL [facility] L ab (Internal) : [address] ? ? BLD - Rbc 4.81 10*6/uL 4.10-5.30 Final N orth 10*6/uL [facility] L ab (Internal) : [address] ? ? BLD - Hgb 14.3 g/dL 12.0-16.0 Final Nort h g/dL [facility] L ab (Internal) : [address] ? ? BLD - Hct 43.8 % 37.0-47.[address] [facility] L ab (Internal) : [address] ? ? BLD - Mcv 91.1 fL 80.0-96.0 Final [facility] L ab (Internal) : [address] ? ? BLD - Mch 29.7 pg 26.0-32.0 Final [facility] L ab (Internal) : [address] ? ? BLD - Mchc 32.6 g/dL 31.0-35.0 Final Nort h g/dL [facility] L ab (Internal) : [address] ? ? BLD - Rdw 13.0 % 11.5-14.[address] [facility] L ab (Internal) : [address] t ? ? BLD - Plt 429 10*3/uL 130-450 Final Nort h 10*3/uL [facility] L ab (Internal) : [address] t ? ? BLD - Anc 5.38 10*3/uL ? Final Nort h [facility] L ab (Internal) : [address], [address] ? ? BLD - Neutro 52.6 % 40.0-75.0 Final [facility] L ab (Internal) : [address] t ? ? BLD - Lymph 31.0 % 20.0-50.0 Final [facility] L ab (Internal) : [address], [address] t ? ? BLD High Pender 11.5 % 2.0-10.[address] [facility] L ab (Internal) : [address] ? ? BLD - Eos 2.7 % 1.0-6.0 % Final [facility] L ab (Internal) : [address] t ? ? BLD High Baso 1.9 % 0.0-1.0 % Final [facility] L ab (Internal) : [address] ? ? BLD - Ig 0.3 % 0.0-0.9 % Final [facility] L ab (Internal) : [address] 04/24/2018 Urinalysi UR - UA-colo yellow pale Final N orth s, r yellow [facility] Lab Reflex (Internal) : Micro [address] t ? ? UR - UA-appe clear clear Final [facility] L ab (Internal) : [address] ? ? UR - UA-spec >=1.030 1.003-1.0 Final Nort h Grav [address] [place] [address] L ab (Internal) : [address] ? ? UR - UA-pH 5.5 [pH] 4.6-8.0 Final [place] [pH] [facility] L ab (Internal) : [address] ? ? UR - UA-leuk negative negative Final Nort h Est [facility] L ab (Internal) : [address] ? ? UR - UA-nitr negative negative Final Nort h ite [facility] L ab (Internal) : [address] ? ? UR - UA-prot negative negative Final Nort h [facility] L ab (Internal) : [address] ? ? UR - UA-gluc negative negative Final Nort h [facility] L ab (Internal) : [address] ? ? UR - UA-keto negative negative Final Nort h ne [facility] L ab (Internal) : [address] ? ? UR - UA-urob normal normal Final [place] [facility] L ab (Internal) : [address] ? ? UR - UA-bili negative negative Final Nort h [facility] L ab (Internal) : [address] ? ? UR ABNORM UA-bloo moderate negative Final Nort h AL d [facility] L ab (Internal) : [address] 04/24/2018 Urinalysi UR ABNORM UA-WBC 3-5 [hpf] 0-3 [hpf] Fin al North s, [place] [facility] Lab ic (Internal) : [address] ? ? UR ABNORM UA-RBC 3-5 [hpf] 0-2 [hpf] Final Nor th [facility] L ab (Internal) : [address] ? ? UR ABNORM UA-bact few [hpf] none seen Final No rth AL eria [hpf] [facility] L ab (Internal) : [address] ? ? UR ABNORM UA-epit moderate none seen Final Nor th AL helial [hpf] [hpf] [facility] [place] : [address] ? ? UR ABNORM UA-mucu few [hpf] none seen Final No rth AL s [hpf] [facility] (Internal) : [address] 04/24/2018 Culture UR - Final microbiology ? Final [place] ([place] results [facility] Count), Hospital Lab Urine (Internal) : [address] 04/24/2018 CMP, S - g/r 100 mg/dL 74-106 Final Nor th Serum or mg/dL [facility] L ab (Internal) : [address] ? ? S - Bun 13 mg/dL 7-17 Final [place] mg/dL [facility] L ab (Internal) : [address] ? ? S - Crea 0.90 mg/dL 0.52-1.04 Final Nor mg/dL [facility] L ab (Internal) : [address] ? ? S - Ca 10.0 mg/dL 8.4-10.2 Final Nort h mg/dL [facility] L ab (Internal) : [address] t ? ? S - Na 140 mmol/L 137-145 Final [place] mmol/L [facility] L ab (Internal) : [address] ? ? S - K 3.8 mmol/L 3.5-5.1 Final [place] mmol/L [facility] L ab (Internal) : [address] t ? ? S - Cl 106 mmol/L 98-107 Final [place] mmol/L [facility] L ab (Internal) : [address] ? ? S - Tco2 25.0 mmol/L 22.0-30.0 Final No rth mmol/L [facility] L ab (Internal) : [address] t ? ? S - Tp 7.5 g/dL 6.3-8.2 Final [place] g/dL [facility] L ab (Internal) : [address] t ? ? S - Alb 4.5 g/dL 3.5-5.0 Final [place] g/dL [facility] L ab (Internal) : [address] t ? ? S - Tbil 0.4 mg/dL 0.2-1.3 Final [place] mg/dL [facility] L ab (Internal) : [address] t ? ? S - Alp 73 U/L 50-136 Final [place] U/L [facility] L ab (Internal) : [address] ? ? S - Alt 17 U/L 9-52 U/L Final [place] (Sgpt) [facility] L ab (Internal) : [address] ? ? S - Ast 28 U/L 14-36 U/L Final [place] (Sgot) [facility] L ab (Internal) : [address] 04/24/2018 Lipase, S - Lip 53 U/L 23-300 Final [place] Serum or U/L [facility] L ab (Internal) : [address] 04/19/2018 CBC W/ BLD High Wbc 10.1 10*3/uL 5.0-10.0 Final [place] Auto Diff 10*3/uL [facility] L ab (Internal) : [address] ? ? BLD - Rbc 4.79 10*6/uL 4.10-5.30 Final N orth 10*6/uL [facility] L ab (Internal) : [address] ? ? BLD - Hgb 14.2 g/dL 12.0-16.0 Final Nort h g/dL [facility] L ab (Internal) : [address] ? ? BLD - Hct 44.3 % 37.0-47.0 Final North % [facility] L ab (Internal) : [address] ? ? BLD - Mcv 92.5 fL 80.0-96.0 Final North fL [facility] L ab (Internal) : [address] ? ? BLD - Mch 29.6 pg 26.0-32.0 Final North pg [facility] L ab (Internal) : [address] ? ? BLD - Mchc 32.1 g/dL 31.0-35.0 Final Nort h g/dL [facility] L ab (Internal) : [address] ? ? BLD - Rdw 13.1 % 11.5-14.5 Final [facility] L ab (Internal) : [address] ? ? BLD - Plt 388 10*3/uL 130-450 Final Nort h 10*3/uL [facility] ab (Internal) : [address] ? ? BLD - Anc 5.45 10*3/uL ? Final Nort h [facility] L ab (Internal) : [address] ? ? BLD - Neutro 54.2 % 40.0-75.0 Final North [facility] Hospital L ab (Internal) : [address] ? ? BLD - Lymph 29.6 % 20.0-50.0 Final [facility] L ab (Internal) : [address] ? ? BLD High Pender 11.1 % 2.0-10.0 Final [facility] L ab (Internal) : [address] ? ? BLD - Eos 3.0 % 1.0-6.0 % Final [facility] L ab (Internal) : [address] ? ? BLD High Baso 1.7 % 0.0-1.0 % Final [facility] L ab (Internal) : [address] ? ? BLD - Ig 0.4 % 0.0-0.9 % Final [facility] L ab (Internal) : [address] 04/19/2018 Lipid S - Chol 180 mg/dL 50-200 Final Nor th Panel, mg/dL [facility] (Internal) : [address] ? ? S - Trig 134 mg/dL 10-150 Final North mg/dL [facility] (Internal) : [address] ? ? S - Hdl 54 mg/dL 40-60 Final North mg/dL [facility] (Internal) : [address] ? ? S - Ldl 99 mg/dL 0-130 Final North mg/dL [facility] (Internal) : [address] 04/19/2018 CMP, S - g/r 99 mg/dL 74-106 Final Nort h Serum or mg/dL [facility] (Internal) : [address] ? ? S - Bun 14 mg/dL 7-17 Final North mg/dL [facility] (Internal) : [address] ? ? S - Crea 0.90 mg/dL 0.52-1.04 Final Nor th mg/dL [facility] (Internal) : [address] ? ? S - Ca 9.6 mg/dL 8.4-10.2 Final North mg/dL [facility] (Internal) : [address] ? ? S - Na 138 mmol/L 137-145 Final North mmol/L [facility] (Internal) : [address] ? ? S - K 4.4 mmol/L 3.5-5.1 Final North mmol/L [facility] (Internal) : [address] ? ? S - Cl 106 mmol/L 98-107 Final North mmol/L [facility] (Internal) : [address] ? ? S - Tco2 26.0 mmol/L 22.0-30.0 Final No rth mmol/L [facility] L ab (Internal) : [address] ? ? S - Tp 6.9 g/dL 6.3-8.2 Final North g/dL [facility] L ab (Internal) : [address] ? ? S - Alb 4.2 g/dL 3.5-5.0 Final North g/dL [facility] L [facility] (Internal) : [address] ? ? S - Tbil 0.4 mg/dL 0.2-1.3 Final [place] mg/dL [facility] L ab (Internal) : [address] ? ? S - Alp 57 U/L 50-136 Final [place] U/L [facility] L ab (Internal) : [address] ? ? S - Alt 15 U/L 9-52 U/L Final [place] (Sgpt) [facility] L ab (Internal) : [address] ? ? S - Ast 24 U/L 14-36 U/L Final [place] (Sgot) [facility] (Internal) : [address] [facility] 04/19/2018 Iron, SERUM - Iron 51 ug/dL 37-170 Final Nort h Serum ug/dL [facility] L ab (Internal) : [address] [facility] 04/19/2018 T4, Free, S - Ft4 1.51 NG/dL 0.78-2.19 Fin al North Serum NG/dL [facility] L ab (Internal) : [address] [facility] 04/19/2018 Ferritin, S Low Ferr 7 NG/mL 11-264 Final No rth Serum or NG/mL [facility] (Internal) : [address] [facility] 04/19/2018 TSH, S - Tsh 1.05 0.47-4.68 Final Nor th Serum or u[IU]/mL u[IU]/mL Coun [facility] L ab (Internal) : [address] [facility] 04/19/2018 T3, S Low T3, 93 NG/dL 97-169 Final Nort h Total, Total NG/dL [facility] L ab (Internal) : [address] 02/15/2018 Partial BLD - APTT 22 s 22-35 s Final Nort h Thrombopl (Op) [facility] L ab Time (Internal) : [address] 02/15/2018 Prothromb BLD - Pt 9.5 S 9.1-11.7 Final N orth in Time S [facility] L ab (Internal) : [address] ? ? BLD - Inr 0.9 ? Final [facility] L ab (Internal) : [address] 02/15/2018 CBC W/ BLD High Wbc 11.8 10*3/uL 5.0-10.0 Final [place] Auto Diff 10*3/uL [facility] Hospital L ab (Internal) : [address] ? ? BLD - Rbc 4.53 10*6/uL 4.10-5.30 Final N orth 10*6/uL [facility] L ab (Internal) : [address] ? ? BLD - Hgb 13.6 g/dL 12.0-16.0 Final Nort h g/dL [facility] L ab (Internal) : [address] ? ? BLD - Hct 41.8 % 37.0-47.[address] [facility] L ab (Internal) : [address] ? ? BLD - Mcv 92.3 fL 80.0-96.0 Final [facility] L ab (Internal) : [address] ? ? BLD - Mch 30.0 pg 26.0-32.0 Final [facility] L ab (Internal) : [address] ? ? BLD - Mchc 32.5 g/dL 31.0-35.0 Final Nort h g/dL [facility] L ab (Internal) : [address] ? ? BLD - Rdw 13.3 % 11.5-14.[address] [facility] L ab (Internal) : [address] ? ? BLD - Plt 414 10*3/uL 130-450 Final Nort h 10*3/uL [facility] (Internal) : [address] ? ? BLD - Anc 7.57 10*3/uL ? Final Nort h [facility] (Internal) : [address], [place] t ? ? BLD - Neutro 64.1 % 40.0-75.0 Final [place] % [facility] ab (Internal) : [address] t ? ? BLD - Lymph 23.2 % 20.0-50.0 Final [facility] L ab (Internal) : [address] ? ? BLD - Pender 8.0 % 2.0-10.0 Final [place] % [facility] ab (Internal) : [address] ? ? BLD - Eos 3.0 % 1.0-6.0 % Final [facility] L ab (Internal) : [address] t ? ? BLD High Baso 1.4 % 0.0-1.0 % Final [facility] L ab (Internal) : [address] t ? ? BLD - Ig 0.3 % 0.0-0.9 % Final [facility] L ab (Internal) : [address] t 02/15/2018 CMP, S - g/r 97 mg/dL 74-106 Final Nort h Serum or mg/dL [facility] (Internal) : [address] ? ? S - Bun 10 mg/dL 7-17 Final North mg/dL [facility] (Internal) : [address] ? ? S - Crea 0.80 mg/dL 0.52-1.04 Final Nor th mg/dL [facility] (Internal) : [address] ? ? S - Ca 9.1 mg/dL 8.4-10.2 Final North mg/dL [facility] (Internal) : [address] ? ? S - Na 143 mmol/L 137-145 Final North mmol/L [facility] (Internal) : [address] ? ? S - K 3.8 mmol/L 3.5-5.1 Final North mmol/L [facility] (Internal) : [address] ? ? S High Cl 109 mmol/L 98-107 Final [facility] mmol/L [facility] (Internal) : [address] ? ? S - Tco2 26.0 mmol/L 22.0-30.0 Final No rth mmol/L [facility] (Internal) : [address] ? ? S - Tp 6.6 g/dL 6.3-8.2 Final North g/dL [facility] (Internal) : [address] ? ? S - Alb 3.8 g/dL 3.5-5.0 Final North g/dL [facility] (Internal) : [address] ? ? S - Tbil 0.4 mg/dL 0.2-1.3 Final [place] mg/dL [facility] L ab (Internal) : [address] ? ? S - Alp 63 U/L 50-136 Final North U/L [facility] L ab (Internal) : [address] ? ? S - Alt 13 U/L 9-52 U/L Final [place] (Sgpt) [facility] (Internal) : [address] ? ? S - Ast 20 U/L 14-36 U/L Final [place] (Sgot) [facility] L ab (Internal) : [address] 02/15/2018 Urinalysi UR ABNORM UA-colo bloody pale Final N orth s, AL r yellow [facility] Dipstick, Hospita l Lab Reflex (Internal) : Micro [address] ? ? UR ABNORM UA-appe cloudy clear Final North [place] ar [facility] L ab (Internal) : [address] ? ? UR - UA-spec 1.020 1.003-1.0 Final North Grav [facility] L ab (Internal) : [address] ? ? UR - UA-pH 5.0 [pH] 4.6-8.0 Final [place] [pH] [facility] (Internal) : [address] ? ? UR ABNORM UA-leuk moderate negative Final Nort h AL Est [facility] L ab (Internal) : [address] t ? ? UR ABNORM UA-nitr positive negative Final Nort h AL ite [facility] L ab (Internal) : [address] t ? ? UR ABNORM UA-prot 4+ negative Final [facility] ab (Internal) : [address] t ? ? UR - UA-gluc negative negative Final [place] [facility] ([facility]) : [address] t ? ? UR ABNORM UA-keto 1+ negative Final [facility] ab (Internal) : [address] t ? ? UR ABNORM UA-urob positive normal Final [facility] L ab (Internal) : [address] t ? ? UR - UA-bili negative negative Final Nort [facility] ab (Internal) : [address] t ? ? UR ABNORM UA-bloo large negative Final [facility] ab (Internal) : [address] 02/15/2018 Urinalysi UR ABNORM UA-WBC unable to 0-3 [hpf] Fin [facility] s, AL perform [facility] Microscop [hpf] Hospita l Lab ic (Internal) : [address] ? ? UR ABNORM UA-RBC >100 [hpf] 0-2 [hpf] Final No rth [facility] ab (Internal) : [address] ? ? UR - UA-bact none seen none seen Final No rth eria [hpf] [hpf] [facility] (Internal) : [address] t ? ? UR ABNORM UA-epit moderate none seen Final Nor th AL helial [hpf] [hpf] [facility] (Internal) : [address] t ? ? UR - UA-mucu none seen none seen Final No rth s [hpf] [hpf] [facility] (Internal) : [address] 02/15/2018 Culture UR - Final microbiology ? Final [place] ([place] results [facility] Count), Hospital Lab Urine (Internal) : [address] 02/12/2018 Pathology TISS - Report results ? Final N orth Study below [facility] L ab (Internal) : [address] 02/12/2018 Hemoglobi ? Hgb 14.3 ? ? P_o b/Hospital Admissions Officer: 81 n (Hb), Medical [place] ck, [address], [place] 12/17/2017 ESR BLD - Esr 13 mm/h 0-30 mm/h Final No rth ([facility] L ab Sedimenta (Forest Supervisor al): tion [address]), [address] Blood 12/17/2017 Borrelia S - Lyme negative ? Final No rth [place] Antibody Count ry ri , Hospital L ab Qual (Internal) : Immunoass [address], Serum Dr [facility] 11/30/2017 Electroca ? Rate & 65 ? ? P_ nc Primary rdiogram Rhythm Care [place]: [address], [place] ? ? ? [place] 84 ? ? P_nc Prima ry Care [place]: [address], [place] ? ? ? [place] 168 ? ? P_nc Prima ry Interval Care [place]: [address], [place] ? ? ? [place] 84 ? ? P_nc Prima ry Duration Care [place]: [address], [place] ? ? ? [place] 396 ? ? P_nc Prima ry Interval Care [place]: [address], [place] 10/27/2017 Venipunct BLD ? Venpn* ? ? Final No rth ure [facility] L ab (Internal) : [address] 10/27/2017 ESR BLD ? Esr 15 mm/h 0-30 mm/h Final No rth ([facility] L ab [place] (Forest Supervisor al): tion [address]), [address] Blood 10/27/2017 Partial BLD ? APTT 23 s 22-35 s Final Nort h Thrombopl (Op) [facility] ab Time (Internal) : [address] 10/27/2017 Prothromb BLD ? Pt 9.3 S 9.1-11.7 Final N orth in Time S [facility] L ab (Internal) : [address], [place] ? ? BLD ? Inr 0.9 ? Final [facility] Hospital L ab (Internal) : [address] t 10/27/2017 CMP, S ? g/r 98 mg/dL 74-106 Final Nort h Serum or mg/dL [facility] L ab (Internal) : [address] t ? ? S ? Bun 10 mg/dL 7-17 Final North mg/dL [facility] (Internal) : [address] t ? ? S ? Crea 0.90 mg/dL 0.52-1.04 Final Nor th mg/dL [facility] (Internal) : [address] t ? ? S ? Ca 9.9 mg/dL 8.4-10.2 Final North mg/dL [facility] (Internal) : [address] t ? ? S ? Na 140 mmol/L 137-145 Final North mmol/L [facility] L ab (Internal) : [address] t ? ? S ? K 4.1 mmol/L 3.5-5.1 Final [facility] mmol/L [facility] (Internal) : [address] t ? ? S ? Cl 106 mmol/L 98-107 Final North mmol/L [facility] L ab (Internal) : [address] t ? ? S ? Tco2 26.0 mmol/L 22.0-30.0 Final No rth mmol/L [facility] (Internal) : [address] t ? ? S ? Tp 6.9 g/dL 6.3-8.2 Final North g/dL [facility] (Internal) : [address] t ? ? S ? Alb 4.1 g/dL 3.5-5.0 Final North g/dL [facility] (Internal) : [address] t ? ? S ? Tbil 0.3 mg/dL 0.2-1.3 Final North mg/dL [facility] L ab (Internal) : [address] t ? ? S ? Alp 81 U/L 50-136 Final [facility] U/L [facility] (Internal) : [address] t ? ? S ? Alt 26 U/L 9-52 U/L Final [place] (Sgpt) [facility] L ab (Internal) : [address] t ? ? S ? Ast 20 U/L 14-36 U/L Final [place] (Sgot) [facility] L ab (Internal) : [address] 10/27/2017 T3, S Low T3, 90 NG/dL 97-169 Final Nort h Total, Total NG/dL [facility] L ab (Internal) : [address] 10/23/2017 Lipid S High Chol 278 mg/dL 50-200 Final Nor Panel, mg/dL [facility] L ab (Internal) : [address] t ? ? S ? Trig 101 mg/dL 10-150 Final [place] mg/dL [facility] L ab (Internal) : [address] t ? ? S ? Hdl 53 mg/dL 40-60 Final [place] mg/dL [facility] L ab (Internal) : [address] ? ? S High Ldl 205 mg/dL 0-130 Final [place] mg/dL [facility] L ab (Internal) : [address] 10/23/2017 Iron, SERUM ? Iron 113 ug/dL 37-170 Final [facility] Serum ug/dL [facility] L ab (Internal) : [address] 10/23/2017 T4, Free, S ? Ft4 1.60 NG/dL 0.78-2.19 Fin al [place] Serum NG/dL [facility] L ab (Internal) : [address] 10/23/2017 CBC W/ BLD ? Wbc 8.6 10*3/uL 5.0-10.0 Final [place] Auto Diff 10*3/uL [facility] L [facility] (Internal) : [address] ? ? BLD ? Rbc 5.06 10*6/uL 4.10-5.30 Final N orth 10*6/uL [facility] L ab (Internal) : [address] ? ? BLD ? Hgb 14.7 g/dL 12.0-16.0 Final Nort h g/dL [facility] L ab (Internal) : [address], [place] ? ? BLD ? Hct 45.7 % 37.0-47.0 Final [facility] L ab (Internal) : [address] ? ? BLD ? Mcv 90.3 fL 80.0-96.0 Final [facility] Hospital L ab (Internal) : [address] ? ? BLD ? Mch 29.1 pg 26.0-32.0 Final [facility] Hospital L ab (Internal) : [address] ? ? BLD ? Mchc 32.2 g/dL 31.0-35.0 [facility] L ab (Internal) : [address] ? ? BLD ? Rdw 14.1 % 11.5-14.[address] [facility] L ab (Internal) : [address] ? ? BLD ? Plt 393 10*3/uL 130-450 Final Nort h 10*3/uL [facility] L ab (Internal) : [address] ? ? BLD ? Anc 4.68 10*3/uL ? Final Nort [facility] Hospital L ab (Internal) : [address] ? ? BLD ? Neutro 54.4 % 40.0-75.[address] [facility] L ab (Internal) : [address] ? ? BLD ? Lymph 28.7 % 20.0-50.[address] [facility] L ab (Internal) : [address] ? ? BLD High Pender 10.6 % 2.0-10.[address] [facility] L ab (Internal) : [address] ? ? BLD ? Eos 4.3 % 1.0-6.0 % Final [facility] Hospital L ab (Internal) : [address] ? ? BLD High Baso 1.7 % 0.0-1.0 % Final [facility] Hospital L ab (Internal) : [address] ? ? BLD ? Ig 0.3 % 0.0-0.9 % Final [facility] L ab (Internal) : [address] t 10/23/2017 Ferritin, S ? Ferr 14 NG/mL 11-264 Final N orth Serum or NG/mL [facility] L ab (Internal) : [address] 10/23/2017 TSH, S Low Tsh 0.29 0.47-4.68 Final Nor th Serum or u[IU]/mL u[IU]/mL Coun [facility] L ab (Internal) : [address] 07/24/2017 Iron, SERUM ? Iron 91 ug/dL 37-170 Final Nort h Serum ug/dL [facility] L ab (Internal) : [address] 07/24/2017 T3, S ? T3, 117 NG/dL 97-169 Final Nor th Total, Total NG/dL [facility] L ab (Internal) : [address] 07/24/2017 Ferritin, S ? Ferr 11 NG/mL 11-264 Final N orth Serum or NG/mL [facility] L ab (Internal) : [address] 07/24/2017 CMP, S ? g/r 95 mg/dL 74-106 Final Nort h Serum or mg/dL [facility] L ab (Internal) : [address] t ? ? S ? Bun 8 mg/dL 7-17 Final North mg/dL [facility] L ab (Internal) : [address] ? ? S ? Crea 0.80 mg/dL 0.52-1.04 Final Nor th mg/dL [facility] L ab (Internal) : [address] t ? ? S ? Ca 9.0 mg/dL 8.4-10.2 Final North mg/dL [facility] L ab (Internal) : [address] t ? ? S ? Na 139 mmol/L 137-145 Final North mmol/L [facility] L ab (Internal) : [address] ? ? S ? K 3.8 mmol/L 3.5-5.1 Final North mmol/L [facility] L ab (Internal) : [address] t ? ? S ? Cl 107 mmol/L 98-107 Final North mmol/L [facility] L ab (Internal) : [address] t ? ? S ? Tco2 25.0 mmol/L 22.0-30.0 Final No rth mmol/L [facility] L ab (Internal) : [address] ? ? S ? Tp 6.4 g/dL 6.3-8.2 Final [place] g/dL [facility] L ab (Internal) : [address] ? ? S ? Alb 3.7 g/dL 3.5-5.0 Final [place] g/dL [facility] L ab (Internal) : [address] t ? ? S ? Tbil 0.3 mg/dL 0.2-1.3 Final [place] mg/dL [facility] L ab (Internal) : [address] ? ? S ? Alp 73 U/L 50-136 Final [place] U/L [facility] L ab (Internal) : [address] ? ? S ? Alt 27 U/L 9-52 U/L Final [place] (Sgpt) [facility] L ab (Internal) : [address] t ? ? S ? Ast 20 U/L 14-36 U/L Final [place] (Sgot) [facility] L ab (Internal) : [address] t 07/24/2017 CBC W/ BLD ? Wbc 8.2 10*3/uL 5.0-10.0 Final [place] Auto Diff 10*3/uL [facility] Hospital L ab (Internal) : [address] ? ? BLD ? Rbc 4.81 10*6/uL 4.10-5.30 Final N orth 10*6/uL [facility] L ab (Internal) : [address] t ? ? BLD ? Hgb 13.9 g/dL 12.0-16.0 Final Nort h g/dL [facility] L ab (Internal) : [address] ? ? BLD ? Hct 42.6 % 37.0-47.0 Final [place] % [facility] L ab (Internal) : [address] ? ? BLD ? Mcv 88.6 fL 80.0-96.0 Final [place] fL [facility] L ab (Internal) : [address] t ? ? BLD ? Mch 28.9 pg 26.0-32.0 Final [facility] L ab (Internal) : [address] ? ? BLD ? Mchc 32.6 g/dL 31.0-35.0 Final Nort h g/dL [facility] L ab (Internal) : [address] ? ? BLD ? Rdw 13.2 % 11.5-14.[address] [facility] L ab (Internal) : [address] ? ? BLD ? Plt 437 10*3/uL 130-450 Final Nort h 10*3/uL [facility] L ab (Internal) : [address] t ? ? BLD ? Anc 4.80 10*3/uL ? Final Nort [facility] L ab (Internal) : [address], [place] ? ? BLD ? Neutro 58.4 % 40.0-75.[address] [facility] L ab (Internal) : [address] ? ? BLD ? Lymph 25.0 % 20.0-50.[address] [facility] L ab (Internal) : [address] ? ? BLD High Pender 11.7 % 2.0-10.[address] [facility] L ab (Internal) : [address] ? ? BLD ? Eos 2.8 % 1.0-6.0 % [facility] L ab (Internal) : [address] ? ? BLD High Baso 1.7 % 0.0-1.0 % Final [facility] L ab (Internal) : [address] ? ? BLD ? Ig 0.4 % 0.0-0.9 % Final [facility] L ab (Internal) : [address] 07/24/2017 TSH, S Low Tsh <0.05 0.47-4.68 Final [facility] Serum or u[IU]/mL u[IU]/mL Coun [facility] Hospital L ab (Internal) : [address] t 07/24/2017 T4, Free, S ? Ft4 2.19 NG/dL 0.78-2.19 Fin al [place] Serum NG/dL [facility] L ab (Internal) : [address] 06/08/2017 TSH, S Low Tsh <0.05 0.47-4.68 Final Nor th Serum or u[IU]/mL u[IU]/mL Coun [facility] L ab (Internal) : [address] 05/11/2017 Pap Test, MISC ? Hpv see report ? Final [place] Thinprep, [facility]ervical [facility] Lab (Internal) : [address] ? ? MISC ? Pap see report ? Final [facility] Hospital L ab (Internal) : [address] ? ? MISC ? Report (added) ? Corrected [facility] below Hospital L ab (Internal) : [address] 04/24/2017 Iron, SERUM ? Iron 45 ug/dL 37-170 Final Nort h Serum ug/dL [facility] L ab (Internal) : [address] 04/24/2017 Ferritin, S Low Ferr 7 NG/mL 11-264 Final No rth Serum or NG/mL [facility] L ab (Internal) : [address] 04/24/2017 TSH, S Low Tsh 0.05 0.47-4.68 Final Nor th Serum or u[IU]/mL u[IU]/mL Coun [facility] L ab (Internal) : [address] 01/29/2017 Iron, SERUM ? Iron 169 ug/dL 37-170 Final Nor th Serum ug/dL [facility] (Internal) : [address] 01/29/2017 RBC BLD ? Aniso small ? Final [place] Morpholog Country y, Blood Hospital Lab (Internal) : [address] 01/29/2017 Ferritin, S Low Ferr 10 NG/mL 11-264 Final N orth Serum or NG/mL [facility] (Internal) : [address] 01/29/2017 CBC W/ BLD ? Wbc 8.3 10*3/uL 5.0-10.0 Final [place] Auto Diff 10*3/uL [facility] Hospital L ab (Internal) : [address] ? ? BLD ? Rbc 4.98 10*6/uL 4.10-5.30 Final N orth 10*6/uL [facility] (Internal) : [address] Diallo t ? ? BLD ? Hgb 13.8 g/dL 12.0-16.0 Final Nort h g/dL [facility] (Internal) : [address] t ? ? BLD ? Hct 43.2 % 37.0-47.0 Final [facility] (Internal) : [address] t ? ? BLD ? Mcv 86.7 fL 80.0-96.0 Final [facility] (Internal) : [address] t ? ? BLD ? Mch 27.7 pg 26.0-32.0 Final [facility] (Internal) : [address]ial[address] t ? ? BLD ? Mchc 31.9 g/dL 31.0-35.0 Final Nort h g/dL [facility] L ab (Internal) : [address] ? ? BLD High Rdw 18.0 % 11.5-14.[address] [facility] L ab (Internal) : [address] ? ? BLD ? Plt 414 10*3/uL 130-450 Final Nort h 10*3/uL [facility] L [facility] (Internal) : [address] ? ? BLD ? Anc 4.52 10*3/uL ? Final Nort h [facility] L [facility] (Internal) : [address] ? ? BLD ? Neutro 54.8 % 40.0-75.0 Final [facility] L ab (Internal) : [address] ? ? BLD ? Lymph 28.9 % 20.0-50.0 Final [facility] L ab (Internal) : [address] ? ? BLD High Pender 11.0 % 2.0-10.[address] [facility] L ab (Internal) : [address] ? ? BLD ? Eos 2.9 % 1.0-6.0 % Final [facility] L ab (Internal) : [address] ? ? BLD High Baso 1.8 % 0.0-1.0 % Final [facility] L ab (Internal) : [address] ? ? BLD ? Ig 0.6 % 0.0-0.9 % Final [facility] L [facility] (Internal) : [address] 01/29/2017 CMP, S ? g/r 93 mg/dL 74-106 Final Nort h Serum or mg/dL [facility] (Internal) : [address] ? ? S ? Bun 10 mg/dL 7-17 Final North mg/dL [facility] L [facility] (Internal) : [address] ? ? S ? Crea 0.90 mg/dL 0.52-1.04 Final Nor th mg/dL [facility] (Internal) : [address] ? ? S ? Ca 9.7 mg/dL 8.4-10.2 Final North mg/dL [facility] (Internal) : [address] ? ? S ? Na 139 mmol/L 137-145 Final North mmol/L [facility] L [facility] (Internal) : [address] ? ? S ? K 4.1 mmol/L 3.5-5.1 Final North mmol/L [facility] L [facility] (Internal) : [address] ? ? S ? Cl 106 mmol/L 98-107 Final [place] mmol/L [facility] L [facility] (Internal) : [address] ? ? S ? Tco2 27.0 mmol/L 22.0-30.0 Final No rth mmol/L [facility] L [facility] (Internal) : [address] ? ? S ? Tp 6.9 g/dL 6.3-8.2 Final North g/dL [facility] (Internal) : [address] ? ? S ? Alb 4.0 g/dL 3.5-5.0 Final North g/dL [facility] L [facility] (Internal) : [address] ? ? S ? Tbil 0.6 mg/dL 0.2-1.3 Final North mg/dL [facility] (Internal) : [address] ? ? S ? Alp 67 U/L 50-136 Final North U/L [facility] L ab (Internal) : [address] ? ? S ? Alt 18 U/L 9-52 U/L Final [place] (Sgpt) [facility] L [facility] (Internal) : [address] ? ? S High Ast 39 U/L 14-36 U/L Final [place] (Sgot) [facility] L [facility] (Internal) : [address] 01/29/2017 TSH, S High Tsh 15.70 0.47-4.68 Final Nor th Serum or u[IU]/mL u[IU]/mL Coun [facility] L ab (Internal) : [address] 10/24/2016 RBC BLD ? Aniso small ? Final [place] [facility] Lab (Internal) : [address] ? ? BLD ? Poik small [hpf] ? Final [facility] L ab (Internal) : [address] 10/24/2016 Lipid S High Chol 240 mg/dL 50-200 Final Nor th Panel, mg/dL [facility] L ab (Internal) : [address] ? ? S ? Trig 127 mg/dL 10-150 Final North mg/dL [facility] (Internal) : [address] ? ? S ? Hdl 51 mg/dL 40-60 Final North mg/dL [facility] (Internal) : [address] ? ? S High Ldl 164 mg/dL 0-130 Final North mg/dL [facility] (Internal) : [address] 10/24/2016 CMP, S ? g/r 97 mg/dL 74-106 Final Nort h Serum or mg/dL [facility] (Internal) : [address] ? ? S ? Bun 8 mg/dL 7-17 Final North mg/dL [facility] L [facility] (Internal) : [address] ? ? S ? Crea 0.80 mg/dL 0.52-1.04 Final Nor th mg/dL [facility] (Internal) : [address] ? ? S ? Ca 9.0 mg/dL 8.4-10.2 Final North mg/dL [facility] (Internal) : [address] ? ? S ? Na 141 mmol/L 137-145 Final North mmol/L [facility] (Internal) : [address] ? ? S ? K 4.2 mmol/L 3.5-5.1 Final [facility] mmol/L [facility] (Internal) : [address] ? ? S ? Cl 105 mmol/L 98-107 Final North mmol/L [facility] L [facility] (Internal) : [address] ? ? S ? Tco2 26.0 mmol/L 22.0-30.0 Final No rth mmol/L [facility] (Internal) : [address] ? ? S ? Tp 6.7 g/dL 6.3-8.2 Final North g/dL [facility] (Internal) : [address] ? ? S ? Alb 3.8 g/dL 3.5-5.0 Final North g/dL [facility] (Internal) : [address] ? ? S ? Tbil 0.5 mg/dL 0.2-1.3 Final North mg/dL [facility] (Internal) : [address] ? ? S ? Alp 69 U/L 50-136 Final North U/L [facility] L [facility] (Internal) : [address] ? ? S ? Alt 24 U/L 9-52 U/L Final [place] (Sgpt) [facility] (Internal) : [address] ? ? S ? Ast 24 U/L 14-36 U/L Final [place] (Sgot) [facility] (Internal) : [address] 10/24/2016 CBC W/ BLD ? Wbc 7.4 10*3/uL 5.0-10.0 Final [place] Auto Diff 10*3/uL [facility] (Internal) : [address] ? ? BLD ? Rbc 4.37 10*6/uL 4.10-5.30 Final N orth 10*6/uL [facility] (Internal) : [address] ? ? BLD Low Hgb 11.2 g/dL 12.0-16.0 Final Nort h g/dL [facility] L [facility] (Internal) : [address] ? ? BLD Low Hct 36.2 % 37.0-47.0 Final [facility] L ab (Internal) : [address] ? ? BLD ? Mcv 82.8 fL 80.0-96.0 Final [facility] L ab (Internal) : [address] ? ? BLD Low Mch 25.6 pg 26.0-32.0 Final [facility] L ab (Internal) : [address] ? ? BLD Low Mchc 30.9 g/dL 31.0-35.0 Final Nort h g/dL [facility] L ab (Internal) : [address] ? ? BLD High Rdw 15.5 % 11.5-14.[address] [facility] L ab (Internal) : [address] ? ? BLD High Plt 502 10*3/uL 130-450 Final Nort h 10*3/uL [facility] L ab (Internal) : [address] ? ? BLD ? Anc 4.07 10*3/uL ? Final Nort h [facility] L ab (Internal) : [address] ? ? BLD ? Neutro 55.1 % 40.0-75.[address] [facility] L ab (Internal) : [address] ? ? BLD ? Lymph 26.5 % 20.0-50.[address] [facility] L ab (Internal) : [address] ? ? BLD High Pender 12.0 % 2.0-10.[address] [facility] L ab (Internal) : [address] ? ? BLD ? Eos 3.7 % 1.0-6.0 % Final [facility] L ab (Internal) : [address] ? ? BLD High Baso 2.3 % 0.0-1.0 % Final [facility] (Internal) : [address] ? ? BLD ? Ig 0.4 % 0.0-0.9 % Final [facility] L ab (Internal) : [address] 10/24/2016 TSH, S ? Tsh 1.82 0.47-4.68 Final Nor th Serum or u[IU]/mL u[IU]/mL Coun [facility] L ab (Internal) : [address] 08/18/2016 Influenza NASAL ? Final microbiology ? Caimla l [place] (A+B) Ag, results Countr y Qual, Hospital L ab Rapid, (Internal) : Nose [address] 08/18/2016 RBC BLD ? Aniso small ? Final [place] [facility] Lab (Internal) : [address] 08/18/2016 Lipase, S ? Lip 39 U/L 23-300 Final [place] Serum or U/L [facility] L [facility] (Internal) : [address] 08/18/2016 CMP, S ? g/r 94 mg/dL 74-106 Final Nort h Serum or mg/dL [facility] L ab (Internal) : [address] ? ? S ? Bun 9 mg/dL 7-17 Final North mg/dL [facility] L ab (Internal) : [address] ? ? S ? Crea 0.80 mg/dL 0.52-1.04 Final Nor th mg/dL [facility] L ab (Internal) : [address] ? ? S ? Ca 8.6 mg/dL 8.4-10.2 Final North mg/dL [facility] L ab (Internal) : [address] ? ? S ? Na 140 mmol/L 137-145 Final North mmol/L [facility] L ab (Internal) : [address] ? ? S ? K 3.8 mmol/L 3.5-5.1 Final North mmol/L [facility] L ab (Internal) : [address] ? ? S ? Cl 107 mmol/L 98-107 Final North mmol/L [facility] L ab (Internal) : [address] ? ? S ? Tco2 23.0 mmol/L 22.0-30.0 Final No rth mmol/L [facility] L ab (Internal) : [address] ? ? S ? Tp 7.0 g/dL 6.3-8.2 Final [place] g/dL [facility] L ab (Internal) : [address] ? ? S ? Alb 3.9 g/dL 3.5-5.0 Final [place] g/dL [facility] L ab (Internal) : [address] ? ? S ? Tbil 0.3 mg/dL 0.2-1.3 Final [place] mg/dL [facility] L ab (Internal) : [address] ? ? S ? Alp 110 U/L 50-136 Final [place] U/L [facility] L ab (Internal) : [address] ? ? S ? Alt 26 U/L 9-52 U/L Final [place] (Sgpt) [facility] L ab (Internal) : [address] ? ? S ? Ast 20 U/L 14-36 U/L Final [place] (Sgot) [facility] L ab (Internal) : [address] 08/18/2016 CBC W/ BLD ? Wbc 5.3 10*3/uL 5.0-10.0 Final [place] Auto Diff 10*3/uL [facility] L ab (Internal) : [address] ? ? BLD ? Rbc 4.72 10*6/uL 4.10-5.30 Final N orth 10*6/uL [facility] L ab (Internal) : [address] ? ? BLD ? Hgb 12.4 g/dL 12.0-16.0 Final Nort h g/dL [facility] L ab (Internal) : [address] ? ? BLD ? Hct 38.9 % 37.0-47.0 Final [place] % [facility] L ab (Internal) : [address] ? ? BLD ? Mcv 82.4 fL 80.0-96.0 Final [place] fL [facility] L ab (Internal) : [address], [place] ? ? BLD ? Mch 26.3 pg 26.0-32.0 Final [facility] L ab (Internal) : [address] ? ? BLD ? Mchc 31.9 g/dL 31.0-35.0 Final Nort h g/dL [facility] L ab (Internal) : [address] ? ? BLD High Rdw 16.7 % 11.5-14.[address] [facility] L ab (Internal) : [address] ? ? BLD ? Plt 404 10*3/uL 130-450 Final Nort h 10*3/uL [facility] L ab (Internal) : [address] ? ? BLD ? Anc 3.30 10*3/uL ? Final Nort h [facility] L ab (Internal) : [address] ? ? BLD ? Neutro 61.9 % 40.0-75.[address] [facility] L ab (Internal) : [address] ? ? BLD ? Lymph 22.5 % 20.0-50.[address] [facility] L ab (Internal) : [address] ? ? BLD High Pender 11.6 % 2.0-10.[address] [facility] L ab (Internal) : [address] ? ? BLD ? Eos 2.3 % 1.0-6.0 % Final [facility] L ab (Internal) : [address] ? ? BLD High Baso 1.3 % 0.0-1.0 % Final [facility] L ab (Internal) : [address] ? ? BLD ? Ig 0.4 % 0.0-0.9 % Final [facility] L ab (Internal) : [address] ? Venipunct ? Locatio Right ? ? P_nc Primary ure n Antecubital Care [place]: [address], [place] ? ? ? Needle 21g ? ? P_nc Prim prashanth Vacutainer Care [place]: [address], [place] ? ? ? Number 1 ? ? P_nc Prim prashanth of Care Attempts [place]: [address], [place] ? ? ? Success Yes ? ? P_nc Maggy antonina ful Care [place]: [address], [place] ? ? ? Dressin Pressure ? ? P_nc P rimary g Band-aid Care Applied [place]: [address], [place] ? ? ? Initial hj ? ? P_nc Maggy antonina s Care [place]: [address], [place] ? Urinalysi ? Color Yellow ? ? P_nc Pr imary s, Care Dipstick, [place] Reflex ns: [address], [place] ? ? ? Appeara Clear ? ? P_nc Maggy antonina nce Care [place]: [address], [place] ? ? ? Glucose Normal ? ? P_nc Maggy antonina Care [place]: [address], [place] ? ? ? Bilirub Negative ? ? P_nc P rimary in Care [place]: [address], [place] ? ? ? Ketones Negative ? ? P_nc P rimary Care [place]: [address], [place] ? ? ? Specifi 1.025 ? ? P_nc Maggy antonina payne Care Central [place]: [address], [place] ? ? ? Blood Negative ? ? P_nc Maggy antonina Care [place]: [address], [place] ? ? ? Ph 6.5 ? ? P_nc Prima ry Care [place]: [address], [place] ? ? ? Protein Negative ? ? P_nc P rimary Care [place]: [address], [place] ? ? ? Urobili 1 ? ? P_nc Maggy antonina martínez Care [place]: [address], [place] ? ? ? Nitrite negative ? ? P_nc P rimary Care [place]: [address], [place] ? ? ? Leukocy Negative ? ? P_nc P rimary te Care Esterase [place]: [address], [place] ? Venipunct ? Locatio Right ? ? P_nc Primary ure n Antecubital Care [place]: [address], [place] ? ? ? Needle 21g ? ? P_nc Prim prashanth Vacutainer Care [place]: [address], [place] ? ? ? Number 1 ? ? P_nc Prim prashanth of Care Attempts [place]: [address], [place] ? ? ? Success Yes ? ? P_nc Maggy antonina santana Care [place]: [address], [place] ? ? ? Dressin Pressure ? ? P_nc P rimary g Band-aid Care Applied [place]: [address], [place] ? ? ? Initial LMK ? ? P_nc Maggy antonina s Care [place]: [address], [place] ? Venipunct ? Locatio Right ? ? P_nc Primary ure n Antecubital Care [place]: [address], [place] ? ? ? Needle 21g ? ? P_nc Prim prashanth Vacutainer Care [place]: [address], [place] ? ? ? Number 1 ? ? P_nc Prim prashanth of Care Attempts [place]: [address], [place] ? ? ? Success Yes ? ? P_nc Maggy antonina santana Care [place]: [address], [place] ? ? ? Dressin Pressure ? ? P_nc P rimary g Band-aid Care Applied [place]: [address], [place] ? ? ? Initial rs ? ? P_nc Maggy antonina s Care [place]: [address], [place] ? Urinalysi ? Color Yellow ? ? P_nc Pr imary s, Care Dipstick, [place] Reflex ns: [address], [place] ? ? ? Appeara Cloudy ? ? P_nc Maggy antonina nce Care [place]: [address], [place] ? ? ? Glucose Normal ? ? P_nc Maggy antonina Care [place]: [address], [place] ? ? ? Bilirub Negative ? ? P_nc P rimary in Care [place]: [address], [place] ? ? ? Ketones Negative ? ? P_nc P rimary Care [place]: [address], [place] ? ? ? Specifi 1.020 ? ? P_nc Maggy antonina payne Care [facility] [place]: [address], [place] ? ? ? Blood Negative ? ? P_nc Maggy antonina Care [place]: [address], [place] ? ? ? Ph 5.5 ? ? P_nc Prima ry Care [place]: [address], [place] ? ? ? Protein Negative ? ? P_nc P rimary Care [place]: [address], [place] ? ? ? Urobili 0.2 ? ? P_nc Maggy antonina martínez Care [place]: [address], [place] ? ? ? Nitrite negative ? ? P_nc P rimary Care [place]: [address], [place] ? ? ? Leukocy Small ? ? P_nc Maggy antonina te Care Esterase [place]: [address], [place] ? Venipunct ? Locatio Right ? ? P_nc Primary ure n Antecubital Care [place]: [address], [place] ? ? ? Needle 21g ? ? P_nc Prim prashanth Vacutainer Care [place]: [address], [place] ? ? ? Number 1 ? ? P_nc Prim prashanth of Care Attempts [place]: [address], [place] ? ? ? Success Yes ? ? P_nc Maggy antonina ful Care [place]: [address], [place] ? ? ? Dressin Pressure ? ? P_nc P rimary g Band-aid Care Applied [place]: [address], [place] ? ? ? Initial LMK ? ? P_nc Maggy antonina s Care [place]: [address], [place] ? Urinalysi ? Color Pale Yellow ? ? P_ nc Primary s, Care Dipstick, [place] Reflex ns: [address], [place] ? ? ? Appeara Clear ? ? P_nc Maggy antonina nce Care [place]: [address], [place] ? ? ? Glucose Normal ? ? P_nc Maggy antonina Care [place]: [address], [place] ? ? ? Bilirub Negative ? ? P_nc P rimary in Care [place]: [address], [place] ? ? ? Ketones Negative ? ? P_nc P rimary Care [place]: [address], [place] ? ? ? Specifi 1.010 ? ? P_nc Maggy antonina payne Care [facility] [place]: [address], [place] ? ? ? Blood Negative ? ? P_nc Maggy antonina Care [place]: [address], [place] ? ? ? Ph 6.0 ? ? P_nc Prima ry Care [place]: [address], [place] ? ? ? Protein Negative ? ? P_nc P rimary Care [place]: [address], [place] ? ? ? Urobili 1 ? ? P_nc Maggy antonina martínez Care [place]: [address], [place] ? ? ? Nitrite negative ? ? P_nc P rimary Care [place]: [address], [place] ? ? ? Leukocy Negative ? ? P_nc P rimary te Care Esterase [place]: [address], [place] ? Venipunct ? Locatio Right ? ? P_nc Primary ure n Antecubital Care [place]: [address], [place] ? ? ? Needle 21g ? ? P_nc Prim prashanth Vacutainer Care [place]: [address], [place] ? ? ? Number 1 ? ? P_nc Prim prashanth of Care Attempts [place]: [address], [place] ? ? ? Success Yes ? ? P_nc Maggy antonina santana Care [place]: [address], [place] ? ? ? Dressin Pressure ? ? P_nc P rimary g Band-aid Care Applied [place]: [address], [place] ? ? ? Initial LMK ? ? P_nc Maggy antonina s Care [place]: [address] Past Encounters 02/08/2021 Abdominal Pain Ibrahima Rice MD: [address] [place] [phone], Ph. 02/01/2021 Abdominal Pain; Elevated Blood Pressure; Active or Passive Immunization Linda Betancourt, MATH TEACHER: [address] [place] [address] [place] [phone], Ph. 07/12/2020 Headache; Acute Ethmoidal Sinusitis; Hyp othyroidism Ibrahima Rice MD: [address] [place] [phone], Ph. 07/12/2020 Hyperlipidemia Ibrahima Rice MD: [address] [place] [phone], Ph. 07/02/2020 Chronic Constipation; Chronic Obstructiv e Lung Disease; Hypothyroidism; Hyperlipidemia; Anemia Due to Chronic Blood Loss; Muscle Pain Ibrahima Rice MD: [address] [place] [phone], Ph. Social History Tobacco Smoking Status Heavy Tobacco Smoker (1 pack Notes: 1 PPD, began at 19 per day) yrs.old sometime a l ittle less Vaccine List Vaccine Type COVID-19, mRNA, LNP-S, PF, 100 mcg/0.5 m L dose (Moderna) 09/18/2020?100 mcg 10/16/2020?100 mcg influenza, injectable, quadrivalent 04/27/2019?0.5 mL pneumococcal polysaccharide [id number] 11/22/2015?0.5 mL Notes: declines flu vaccination today 04/20/18 Plan of Care Reminders Provider Appointments None ? ? recorded. Lab None ? ? recorded. Referral None ? ? recorded. Procedures None ? ? recorded. Surgeries None ? ? recorded. Imaging None ? ? recorded. Vitals 02/01/2021 03:20PM Follow Up 20 Height Weight BMI Blood Pressure 168.91 cm 74.3 kg 26 kg/m2 148/100 mm[Hg] 07/12/2020 11:20AM Telehealth 20 Height Blood Pressure 168.91 cm 135/80 mm[Hg] 07/02/2020 01:20PM Telehealth 20 Height 168.91 cm 08/25/2019 10:40AM Follow Up 20 Height Weight BMI Blood Pressure 168.91 cm 72.26 kg 25.3 kg/m2 118/78 mm[Hg] 07/20/2019 11:20AM Acute 20 Height Weight BMI Blood Pressure 168.91 cm 69.4 kg 24.3 kg/m2 122/84 mm[Hg] 06/23/2019 09:20AM Procedure 20 with Visit Height Weight BMI Blood Pressure 168.91 cm 68.95 kg 24.2 kg/m2 120/80 mm[Hg] 05/30/2019 11:00AM Follow Up 20 Height Weight BMI Blood Pressure 167.64 cm 70.76 kg 25.2 kg/m2 118/76 mm[Hg] 05/16/2019 01:40PM Follow Up 20 Height Weight BMI Blood Pressure 167.64 cm 70.31 kg 25 kg/m2 120/80 mm[Hg] 03/24/2019 09:00AM Follow Up 20 Height Weight BMI Blood Pressure 167.64 cm 95.11 kg 33.8 kg/m2 118/72 mm[Hg] 02/28/2019 02:45PM Follow Up 30 Height Weight BMI Blood Pressure 167.64 cm 70 kg 24.9 kg/m2 126/83 mm[Hg] 01/24/2019 10:40AM Same Day 20 Height Weight BMI Blood Pressure 167.64 cm 71.21 kg 25.3 kg/m2 110/60 mm[Hg] 12/29/2018 12:40PM Acute 20 Height Weight BMI Blood Pressure 167.64 cm 68.95 kg 24.5 kg/m2 110/70 mm[Hg] 10/22/2018 10:00AM Follow Up 20 Height Weight BMI Blood Pressure 167.64 cm 70.02 kg 24.9 kg/m2 106/62 mm[Hg] 09/17/2018 10:40AM Acute 20 Height Weight BMI Blood Pressure 167.64 cm 68.95 kg 24.5 kg/m2 108/68 mm[Hg] 08/05/2018 01:40PM Acute 20 Height Weight BMI Blood Pressure 167.64 cm 68.04 kg 24.2 kg/m2 110/80 mm[Hg] 07/26/2018 08:20AM Acute 20 Height Weight BMI Blood Pressure 167.64 cm 67.13 kg 23.9 kg/m2 128/90 mm[Hg] 07/20/2018 09:40AM Follow Up 20 Height Weight BMI Blood Pressure 167.64 cm 69.51 kg 24.7 kg/m2 110/62 mm[Hg] 07/01/2018 09:40AM Follow Up 20 Height Weight BMI Blood Pressure 167.64 cm 68.49 kg 24.4 kg/m2 108/64 mm[Hg] 06/14/2018 09:40AM Post Op 20 Height Weight BMI Blood Pressure 167.64 cm 67.36 kg 24 kg/m2 118/72 mm[Hg] 05/05/2018 03:20PM Post Op 20 Height Blood Pressure 167.64 cm 102/68 mm[Hg] 04/27/2018 10:00AM Office 15 Height 167.64 cm 04/26/2018 03:00PM Preop Clearance 40 Height Weight BMI Blood Pressure 167.64 cm 71.99 kg 25.6 kg/m2 118/72 mm[Hg] 04/20/2018 01:40PM Follow Up 20 Height Weight BMI Blood Pressure 167.64 cm 70.02 kg 24.9 kg/m2 122/78 mm[Hg] 04/16/2018 10:30AM Office 20 Height Weight BMI Blood Pressure 167.64 cm 71.21 kg 25.3 kg/m2 120/70 mm[Hg] 03/22/2018 03:40PM Follow Up 20 Height Weight BMI Blood Pressure 167.64 cm 71.47 kg 25.4 kg/m2 118/70 mm[Hg] 02/12/2018 09:00AM New Patient 30 Height Weight BMI Blood Pressure 167.64 cm 70.62 kg 25.1 kg/m2 120/70 mm[Hg] 01/21/2018 01:30PM Follow Up 30 Height Weight BMI Blood Pressure 167.64 cm 70.31 kg 25 kg/m2 110/70 mm[Hg] 12/17/2017 11:00AM Follow Up 30 Height Weight BMI Blood Pressure 167.64 cm 68.95 kg 24.5 kg/m2 118/64 mm[Hg] 11/30/2017 01:00PM Acute 30 Height Weight BMI Blood Pressure 167.64 cm 69.94 kg 24.9 kg/m2 130/96 mm[Hg] 08/31/2017 Height Weight Blood Pressure 167.64 cm 67.59 kg 110/84 mm[Hg] 08/24/2017 Height Weight Blood Pressure 167.64 cm 67.13 kg 120/84 mm[Hg] 07/30/2017 Weight Blood Pressure 67.86 kg 102/76 mm[Hg] 06/08/2017 Weight Blood Pressure 69.31 kg 126/88 mm[Hg] 05/11/2017 Height Weight Blood Pressure 167.64 cm 69.94 kg 104/76 mm[Hg] 04/24/2017 Weight Blood Pressure 69.85 kg 122/72 mm[Hg] 03/05/2017 Height Weight Blood Pressure 167.64 cm 71.21 kg 100/60 mm[Hg] 02/05/2017 Weight Blood Pressure 72.12 kg 144/74 mm[Hg] 11/04/2016 Weight Blood Pressure 72.12 kg 142/70 mm[Hg] 09/15/2016 Height Weight Blood Pressure 167.64 cm 73.35 kg 124/84 mm[Hg] 07/08/2016 Height Weight Blood Pressure 167.64 cm 73.89 kg 120/80 mm[Hg] 07/03/2016 Height Weight Blood Pressure 167.64 cm 74.62 kg 130/80 mm[Hg] 04/24/2016 Weight Blood Pressure 74.84 kg 120/70 mm[Hg] 04/09/2016 Height Weight Blood Pressure 167.64 cm 72.57 kg 116/74 mm[Hg] 04/01/2016 Height Weight Blood Pressure 167.64 cm 72.57 kg 116/74 mm[Hg] 03/11/2016 Height Weight Blood Pressure 167.64 cm 71.21 kg 120/80 mm[Hg] 01/28/2016 Blood Pressure 114/68 mm[Hg] 01/28/2016 Weight 71.67 kg 01/09/2016 Height Weight Blood Pressure 167.64 cm 71.21 kg 138/80 mm[Hg] 11/22/2015 Height Weight Blood Pressure 167.64 cm 68.49 kg 110/70 mm[Hg] 09/27/2015 Height Weight Blood Pressure 167.64 cm 67.13 kg 110/70 mm[Hg] 12/06/2014 Height Weight Blood Pressure 167.64 cm 66.22 kg 110/70 mm[Hg] 11/15/2013 Height Weight Blood Pressure 167.64 cm 75.3 kg 150/80 mm[Hg] 12/01/2012 Height Weight Blood Pressure 167.64 cm 74.84 kg 118/72 mm[Hg] 07/21/2012 Height Weight Blood Pressure 168.91 cm 80.29 kg 118/72 mm[Hg]
[2021-06-04 12:38] LABS: PTT Activated 22.3 sec (21.0-27.5); Prothrombin Time 9.7 sec (9.3-11.0)
--- NOTE | 2021-06-04 12:45 | HOLTER_ITS ---
APPROVED REPORT Conclusion This is a 48-hour Holter monitor ordered for syncope Rhythm throughout was sinus with an average heart rate of 87. Minimum was 61, maximum 143 There were occasional ventricular ectopic beats There were no significant supraventricular dysrhythmias. There was no atrial fibrillation, no high-g rade AV block, no pauses greater than 3 seconds Patient symptoms corresponded to sinus rhythm at 90, sinus tachycardia 130
[2021-06-04 12:47] LABS: ALT 14 U/L (14-59); AST 10 U/L (15-37); Albumin 3.5 g/dL (3.4-5.0); Alkaline Phosphatase 100 U/L (46-116); Anion Gap 7.2 mmol/L (3-11); BUN 14 mg/dL (7-18); Bilirubin, Total 0.4 mg/dL (0.2-1.0); CO2 28.8 mmol/L (21.0-32.0); Calcium 9.1 mg/dL (8.5-10.1); Chloride 107 mmol/L (98-107); Glucose 118 mg/dL (74-106); Magnesium 2.1 mg/dL (1.8-2.4); Potassium 3.7 mmol/L (3.5-5.1); Sodium 143 mmol/L (136-145); TSH (W/Ref FT4) 0.72 uIU/mL (0.36-3.74); Total Protein 6.7 g/dL (6.4-8.2); Troponin I < 50 ng/L (<or=60)
--- NOTE | 2021-06-04 12:49 | DI.RAD_ITS ---
Exam(s) XR CHEST 2V PA LATERAL EXAM: XR CHEST 2V PA LATERAL CLINICAL HISTORY: Palpitations TECHNIQUE: 2D digital imaging was performed of the chest. Two images were obtained. PA and lateral views were obtained. COMPARISON: No exams were available for comparison FINDINGS: MEDIASTINUM: Normal. HEART: Normal. PULMONARY VASCULATURE: Normal. LUNGS: Clear. PLEURAL SPACE: No pleural effusion or pneumothorax. BONE:Within normal limits for the patient's age. OTHER FINDINGS:Normal. IMPRESSION: No acute pulmonary findings. DATA REPOSITORY: RADIATION DOSE DELIVERED:
[2021-06-04 12:54] LABS: D-Dimer 298 ng/mlFEU (<500)
--- NOTE | 2021-06-04 15:15 | RT.EKG_ITS ---
APPROVED REPORT Exam: Resting ECG Reason for Exam: 2nd ekg Patient Location: E HR:71 bpm ECG Measurements Heart Rate 71 AXIS OK 175 P 18 QRSd 86 QRS 55 QT 390 T 21 QTc 424 Conclusion Sinus rhythm...normal P axis, V-rate 60- 99
[2021-06-04 15:43] LABS: Troponin I < 50 ng/L (<or=60)
== END 2021-06-04 16:05 | disposition home or self-care (01) ==
PROVIDERS: Emergency Provider Physician Assistant; PCP Family Medicine
DX: R00.2 Palpitations (principal); R06.02 Shortness of breath
CPT/HCPCS: 36415; 80053; 93005; 99284; 71046; 83735; 84443; 84484; 85025; 85379; 85610; 85730; 93010; 93225

== ENCOUNTER 2021-06-04 12:45 | Outpatient (CLI) | payer MEDICARE, MEDICAID, SELFPAY | END 2021-06-04 12:46 | LOC: CARDO 06-25 14:52 | PROVIDERS: PCP Family Medicine; Referring Provider Physician Assistant; Visit Provider Internal Medicine Cardiovascular Disease | DX: R55 Syncope and collapse (principal); I49.3 Ventricular premature depolarization | CPT/HCPCS: 93227 ==

== ENCOUNTER 2021-06-04 13:01 | Outpatient (RCR) | payer MEDICARE, MEDICAID, SELFPAY | END 2021-06-21 23:59 | disposition home or self-care (01) | LOC: RT 13:01 | PROVIDERS: PCP Family Medicine; Visit Provider Physician Assistant | DX: R55 Syncope and collapse (principal); I49.3 Ventricular premature depolarization | CPT/HCPCS: 93227; 93246; 93225; 93226 ==

== ENCOUNTER 2022-08-31 10:31 | Emergency (ER) | payer MEDICARE, MEDICAID, SELFPAY ==
[2022-08-31 10:39] VITALS: BP 129/80; PULSE 86; RESP 18; O2SAT 95
--- NOTE | 2022-08-31 11:52 | W.ED.GENAD ---
Discharge Plan Disposition Patient Disposition: Home Condition: Stable Discharge Details Clinical Impression: Rash Primary Care Provider: Selvin Rai ED Provider: Vladimir Warren Home Meds and New Rx's Prescriptions: Continued Advair HFA 230-21 mcg/actuation HFA aerosol inhaler 2 puff IH BID lamotrigine [Lamictal] 150 mg tablet 150 mg PO DAILY levalbuterol tartrate 45 mcg/actuation HFA aerosol inhaler 2 inh IH Q6H levothyroxine 100 mcg capsule 150 mcg PO DAILY quetiapine [Seroquel] 400 mg tablet 400 mg PO QHS hydrochlorothiazide 25 mg tablet 25 mg PO DAILY gabapentin 600 mg tablet 300 mg PO QHS Discharge Instructions Instructions: Acute Rash (ED) Additional Instructions: Please please use soaps and detergents for sensitive skin. We discussed you trialing Benadryl 25 mg every 6-8 hours to see if this helps with itching and rash. Please follow-up with your primary care physician. Return to the [facility] department for any worsening or new concerning symptoms. Referrals: Selvin Rai [Primary Care Provider] - Medical Decision Making 56-year-old female presents with new rash over the past 1 week, started on her back and now involving her torso and groin. Rash is sparsely distributed. Findings and history not concerning for acute bacterial infection. Patient did have COVID about a month ago. Consider viral exanthem versus post-COVID rash. Considered syphilis. Patient is low risk. RPR sent. Plan to treat with supportive care. I recommended she trial Benadryl for itching. I recommended she follow-up with her primary care physician for reassessment. Usual customary discharge instructions otherwise reviewed. HPI General Mode of arrival: ambulatory. Date/Time Provider Initiated Documentation: 08/31/22 11:12. Limitations to Documentation: no limitations. Information obtained by: patient. HPI Narrative: 56-year-old female here with chief complaint of rash. Patient notes rash started on her back and subsequently spread onto her buttock, chest and groin and she also has a single lesion on her right face. Rash is itchy. Rash has been present now for 1 week. No associated fever. No new detergents or soaps. No known allergens. Related Data Home Medications Medication Instructions Recorded Confirmed fluticasone propionate 230 2 puff inhalation BID 07/11/19 08/31/22 mcg-salmeterol 21 mcg/actuation HFA inhaler (Advair HFA) lamotrigine 150 mg tablet 150 mg PO DAILY 07/11/19 08/31/22 (Lamictal) levalbuterol tartrate 45 2 inh inhalation Q6H 07/11/19 08/31/22 mcg/actuation aerosol inhaler levothyroxine 100 mcg capsule 150 mcg PO DAILY 07/11/19 08/31/22 quetiapine 400 mg tablet (Seroquel) 400 mg PO QHS 07/11/19 08/31/22 gabapentin 600 mg tablet 300 mg PO QHS 10/14/20 08/31/22 hydrochlorothiazide 25 mg tablet 25 mg PO DAILY 11/04/21 08/31/22 Allergies Allergy/AdvReac Type Severity Reaction Status Date / Time ampicillin Allergy Intermediate Rash, Verified 08/31/22 10:41 vomiting sulfamethoxazole Allergy Intermediate Tachycardia Verified 08/31/22 10:41 [From Bactrim] fluoxetine [From Prozac] Allergy Mild anxiety Verified 08/31/22 10:41 clindamycin AdvReac Intermediate tachycardia Verified 08/31/22 10:41 General Stated Complaint: RashLesion JOSEFINA: 4 Review of Systems All systems reviewed & are unremarkable except as noted in HPI and below Constitutional Constitutional: Denies fever(s) ENT Ears, Nose, Mouth, and Throat: Denies sore throat Musculoskeletal Musculoskeletal: Denies myalgias Integumentary/Breasts Skin/Breast: Reports as per HPI PFSH All Active Problems Palpitations (Acute) Rash (Acute) Medication overuse headache (Acute) Migraine headache without aura (Acute) Chronic headache (Acute) Back pain (Acute) Leg pain, bilateral (Acute) Medical History Anemia Anxiety Bipolar 1 disorder COPD (chronic obstructive pulmonary disease) History of chronic constipation Hyperlipidemia Hypothyroidism Irritable bowel syndrome Low back pain Postoperative retention of urine Right inguinal hernia Umbilical hernia Uterine fibroid Surgical History H/O breast biopsy x3 S/P cholecystectomy 2005 S/P hernia repair epigastric x3 S/P hysterectomy with oophorectomy 2017; with bladder suspension and cystocele repair Family History Father , HAD 3 MIS AND CABG- [employer] 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 ACCIDENT AT 49 Myocardial infarction Heart disease Mother Mental disorder Hx of chronic obstructive lung disease Brother Thyroid disease Daughter Asthma Social History Smoking/Tobacco Use Status: Current every day Smoking risk assessment performed?: Yes Alcohol Intake: never Drug use: Never Substance use type: does not use Number of Children: 2 current occupation: Unemployed What is your relationship status?: Panel score (0-1 are the most socially isolated patients): 0 Seatbelt use: always Do you feel safe at home: Yes Do you feel safe in your relationship?: Yes Exam Const General: cooperative and no acute distress HENMT Mouth: moist mucous membranes Throat: posterior oropharynx normal Eyes Conjunctivae: normal conjunctivae Skin Rashes: rashes noted (Macular rash with small patches, sparsely distributed on her back and torso) Other: No erythema, no vesicles, no petechiae. Patient has a few sparsely distributed macules and patches on her back, 1 on her right cheek, few on her chest. Neuro General: patient alert, patient awake and tone normal Extrem General: no edema Psych Appearance: grossly normal Mental Status: mental status grossly normal Course Vital Signs Vital signs: Vital Signs Pulse 86 08/31/22 10:39 Respiratory Rate 18 08/31/22 10:39 Blood Pressure 129/80 08/31/22 10:39 Pulse Oximetry 95 08/31/22 10:39 Pulse 86 08/31/22 10:39 Respiratory Rate 18 08/31/22 10:39 Respiratory Effort Normal 08/31/22 10:43 Blood Pressure 129/80 08/31/22 10:39 Blood Pressure Position Sitting 08/31/22 10:39 Pulse Oximetry 95 08/31/22 10:39 Oxygen Delivery Method Room Air 08/31/22 10:39 Oxygen Flow Rate 0 08/31/22 10:39 Pain Level 0 08/31/22 10:39
--- NOTE | 2022-09-01 09:42 | NUR.NOTE ---
Nursing Note: Patient called asking for the results of the test performed yesterday. I looked up the test, it is a send out, so will be 3 to 5 days. I will call the patient back to tell her this.
[2022-09-02 10:56] LABS: Syphilis Serology (RPR) Negative (Negative)
--- NOTE | 2022-09-03 10:40 | NUR.NOTE ---
Nursing Note: Pt called to get send out lab results. Results given to Pt verbally.
== END 2022-08-31 12:23 | disposition home or self-care (01) ==
PROVIDERS: Emergency Provider Student in an Organized Health Care Education/Training Program; PCP Family Medicine
DX: R21 Rash and other nonspecific skin eruption (principal); Z86.16 Personal history of COVID-19
CPT/HCPCS: 36415; 99283; 86592

== ENCOUNTER → 2023-07-16 12:46 | Outpatient (BNVA) | payer MEDICARE, MEDICAID, SELFPAY | PROVIDERS: PCP Family Medicine; Referring Provider Family Medicine; Visit Provider Student in an Organized Health Care Education/Training Program | DX: J44.9 Chronic obstructive pulmonary disease, unspecified (principal); U09.9 Post COVID-19 condition, unspecified; F17.210 Nicotine dependence, cigarettes, uncomplicated | CPT/HCPCS: 36415; 94664; 99215 ==

== ENCOUNTER 2023-07-16 15:11 | Outpatient (REF) | payer MEDICARE, MEDICAID, SELFPAY ==
[2023-07-16 16:23] LABS: TSH (W/Ref FT4) 1.03 uIU/mL (0.36-3.74); Vitamin B12 199 pg/mL (193-986)
[2023-07-22 13:16] LABS: 1,25-Dihydroxyvitamin D 22 pg/mL (18-78)
== END 2023-07-16 15:12 | disposition home or self-care (01) ==
LOC: LBN 15:11
PROVIDERS: PCP Family Medicine; Visit Provider Student in an Organized Health Care Education/Training Program
DX: R06.00 Dyspnea, unspecified (principal); U09.9 Post COVID-19 condition, unspecified; E55.9 Vitamin D deficiency, unspecified
CPT/HCPCS: 82533; 82607; 82652; 84443

== ENCOUNTER → 2023-07-31 01:47 | Outpatient (CLI) | payer MEDICARE, MEDICAID, SELFPAY ==
--- NOTE | 2023-07-31 07:45 | DI.CTLCSR_ITS ---
Exam(s) CT CHEST LUNG CANCER SCREEN EXAM: CT CHEST LUNG CANCER SCREEN CLINICAL HISTORY: Screening for lung cancer,CURRENT SMOKER, F17.210 TECHNIQUE: Imaging Protocol: Axial computed tomography images with coronal and sagittal reformatted images were created and reviewed. Low dose screening protocol. COMPARISON: Chest x-ray 04 June 2021 FINDINGS: Tracheobronchial tree: No bronchiectasis or mucus plugging.. Mediastinum and Cristin: No dominant adenopathy or fluid collection. Right lower lobe atelectasis. Pulmonary parenchyma: No consolidation or dominant measurable mass. Mild emphysematous changes. Lung Nodules: Which is nodules. Few calcified granulomas are noted. Pleura: No effusion. No pneumothorax. Heart: The heart is not dilated. No coronary artery calcifications are seen. Aorta: Thoracic aorta non-dilated. Upper abdomen: Unremarkable. Status post cholecystectomy Bones: Unremarkable for age. Soft Tissues: Unremarkable. IMPRESSION: No suspicious pulmonary nodules. Lung RADS Cat 1 - Negative: No nodules and definitely benign nodules Lung-RADS 1.0 CATEGORIES: Category 0 - Prior chest CT exam(s) being located for comparison. Category 1 - Annual screening in 12 months. No nodules or definitely benign nodules. Category 2 - Annual screening in 12 months. Benign appearance. Nodules with low likelihood of becomin g active cancer. Category 3 - 6-month follow-up. Probably benign. Short-term follow-up suggested. Nodules with low lik elihood of becoming active cancer. Category 4A - 3-month follow-up and CT/PET if >8 mm in size. Suspicious finding. Findings which requi re additional testing. Category 4B - Findings which require additional testing and tissue sampling. Category 4X - Category 3 or 4 nodules with additional features or imaging findings that increases the suspicion of malignancy. Modifier S- Potentially clinically significant findings (non lung cancer) RADIATION DOSE DELIVERED: 78.82mGy.cm Total DLP DATA REPOSITORY: All CT scans at this facility are submitted to the National Radiology Data Registry (NRDR) Dose Index Registry (DIR) with the [employer] (ACR). RADIATION OPTIMIZATION: All CT scans at this facility use at least one of these dose optimization te chniques: automated exposure control; mA and/or kV adjustment per patient size (includes targeted exa ms where dose is matched to clinical indication); or iterative reconstruction.
== END ==
PROVIDERS: PCP Family Medicine; Visit Provider Student in an Organized Health Care Education/Training Program
DX: F17.210 Nicotine dependence, cigarettes, uncomplicated (principal); Z12.2 Encounter for screening for malignant neoplasm of respiratory organs
CPT/HCPCS: 71271; 94060; 94726; 94729

== ENCOUNTER 2023-07-31 03:00 | Outpatient (CLI) | payer MEDICARE, MEDICAID, SELFPAY ==
[2023-07-31] MEDS: Levalbuterol HFA 15 GM INH 4 PUFF IH (16:00)
[2023-07-31] MEDS: Inhaler, Assist Device 1 EACH MC (16:01)
--- NOTE | 2023-08-03 07:55 | PFT_ITS ---
Date of service: 07/31/23 Time of Service: 14:53 Pulmonary Function Test Result Indications: [facility] Interpretation Spirometry: There is no airflow limitation. No bronchodilator response. FVC is slightly low. Lung Volumes: Normal lung volumes. Diffusion Capacity: Normal diffusion. Airway Pressure: Normal airways resistance Impression Normal pulmonary function testing Clinical Correlation therefore is recommended.
== END 2023-07-31 03:01 | disposition home or self-care (01) ==
LOC: RT 03:00
PROVIDERS: PCP Family Medicine; Visit Provider Student in an Organized Health Care Education/Training Program
DX: U09.9 Post COVID-19 condition, unspecified (principal)
CPT/HCPCS: 94060; 94726; 94729

== ENCOUNTER 2023-08-09 10:44 | Emergency (ER) | payer MEDICARE, MEDICAID, SELFPAY ==
[2023-08-09] VITALS (18 sets, daily range): BP systolic 107–144; BP diastolic 72–91; PULSE 80–104; RESP 15–21; TEMP 37.3; O2SAT 95
--- NOTE | 2023-08-09 10:45 | DI.RAD_ITS ---
Exam(s) XR CHEST 2V PA LATERAL EXAM: XR CHEST 2V PA LATERAL CLINICAL HISTORY: right chest pain TECHNIQUE: 2D digital imaging was performed of the chest. Two images were obtained. PA and lateral views were obtained. COMPARISON: CR XR CHEST 2V PA LATERAL from 06/04/2021 FINDINGS: MEDIASTINUM: Normal. HEART: Normal. PULMONARY VASCULATURE: Normal. LUNGS: Clear. PLEURAL SPACE: No pleural effusion or pneumothorax. BONE:Within normal limits for the patient's age. OTHER FINDINGS:Normal. IMPRESSION: No acute pulmonary findings. DATA REPOSITORY: RADIATION DOSE DELIVERED:
--- NOTE | 2023-08-09 10:45 | RT.EKG_ITS ---
APPROVED REPORT Exam: Resting ECG Reason for Exam: chest pain Patient Location: E HR:89 bpm ECG Measurements Heart Rate 89 AXIS MI 145 P 55 QRSd 78 QRS 63 QT 361 T -8 QTc 439 Conclusion Sinus rhythm...normal P axis, V-rate 60- 99 Probable left atrial enlargement...P >50mS, <-0.10mV V1
[2023-08-09 11:15] LABS: Abs Immature Grans 0.08 10^3/uL (0.0-0.06); Absolute Basophil Count 0.19 10^3/uL (0.0-0.2); Absolute Monocyte Count 1.07 10^3/uL (0.1-0.8); Basophils % 1.6; Eosinophils % 3.1; HCT 42.2 % (36.0-46.0); HGB 13.9 g/dL (11.2-15.7); Immature Grans % 0.7; Lymphocytes % 21.4; MCH 28.5 pg (27.0-33.0); MCHC 32.9 % (32.0-36.0); MCV 87 fL (80-95); MPV 8.6 fL (8.0-11.0); Monocytes % 9.1; Neutrophils % 64.1; Platelet Count 468 10^3/uL (130-400); RBC 4.88 10^6/uL (3.93-5.22); RDW 13.6 % (11.7-14.6); RDW-SD 43.4 fL
[2023-08-09] MEDS: Lidocaine 5% Patch 1 PATCH TP (11:28)
[2023-08-09 11:31] LABS: PTT Activated 25.9 sec (23.6-32.8); Prothrombin Time 9.8 sec (9.1-11.1)
[2023-08-09 11:32] LABS: Absolute Eosinophil Count 0.37 10^3/uL (0.0-0.7); Absolute Lymphocyte Count 2.53 10^3/uL (1.2-3.4); Absolute Neutrophil Count 7.56 10^3/uL (1.2-6.7)
[2023-08-09 11:33] LABS: ALT 13 U/L (14-59); AST 10 U/L (15-37); Albumin 3.1 g/dL (3.4-5.0); Alkaline Phosphatase 107 U/L (46-116); Anion Gap 11.3 mmol/L (3-11); BUN 10 mg/dL (7-18); Bilirubin, Total 0.4 mg/dL (0.2-1.0); CO2 27.7 mmol/L (21.0-32.0); Calcium 10.1 mg/dL (8.5-10.1); Chloride 102 mmol/L (98-107); Estimated GFR 66.53 (mL/min/1.73m2); Glucose 111 mg/dL (74-106); Magnesium 1.8 mg/dL (1.8-2.4); Potassium 3.5 mmol/L (3.5-5.1); Sodium 141 mmol/L (136-145); Total Protein 7.1 g/dL (6.4-8.2); Troponin I < 50 ng/L (< or =60)
[2023-08-09 11:57] LABS: D-Dimer 787 ng/mlFEU (<500)
--- NOTE | 2023-08-09 12:17 | DI.VRAD_ITS ---
PROCEDURE INFORMATION: Exam: XR Chest Exam date and time: 08/09/2023 11:53 AM Age: 57 years old Clinical indication: Other: Right chest pain TECHNIQUE: Imaging protocol: Radiologic exam of the chest. Views: 2 views. COMPARISON: CT CHEST LUNG CANCER SCREEN 07/31/2023 2:10 PM FINDINGS: Lungs: Unremarkable. No consolidation. Pleural spaces: Unremarkable. No pleural effusion. No pneumothorax. Heart/Mediastinum: Unremarkable. No cardiomegaly. Bones/joints: Unremarkable. IMPRESSION: No acute findings. Dictated and Authenticated by: Veronica Bennett MD. Ordering:JOLIE Ramos MD
[2023-08-09] MEDS: ACETAMINOPHEN 1,000 MG/100 ML BTL 400 MG IVPB (12:24)
[2023-08-09] MEDS: Normal Saline - Diluent 50 ML VIAL IJ (12:50)
[2023-08-09] MEDS: Omnipaque 350 MG/ML 100 ML BTL IJ (12:53)
--- NOTE | 2023-08-09 12:58 | DI.CT_ITS ---
Exam(s) CT CHEST PE CTA EXAM: CT CHEST PE CTA CLINICAL HISTORY: sob, right sided chest pain. TECHNIQUE: Imaging Protocol: Axial CT angiography was performed with multi-slice acquisition and mu lti-planar and/or 3D reconstructions. CONTRAST MATERIAL: Intravenous: Omnipaque 350 contrast volume:80 mL COMPARISON: CT CT CHEST LUNG CANCER SCREEN from 07/31/2023 FINDINGS: Tracheobronchial tree: Patent where visualized. Pulmonary parenchyma: Mild emphysematous changes are present. No focal infiltrates are present. The re is linear atelectasis or scarring in the lung bases bilaterally. No architectural distortion. Pulmonary Arteries: No evidence of filling defect to suggest pulmonary emboli. Mediastinum and Cristin: No dominant adenopathy or fluid collection. The esophagus is unremarkable. Visualized thyroid gland: Unremarkable. Pleura: There is a tiny right pleural effusion. No left pleural effusion. No pneumothorax. Heart: The heart is not dilated. No coronary artery calcifications are seen. No pericardial effusion. Aorta: Thoracic aorta non-dilated. No evidence of dissection. Upper abdomen: Status post cholecystectomy. Soft tissues: Unremarkable. Bones: Within normal limits for the patient's age. IMPRESSION: 1. No evidence of pulmonary embolism, thoracic aortic dissection or aneurysm. 2. Bilateral basilar atelectasis and tiny right pleural effusion. 3. Mild centrilobular emphysema. RADIATION DOSE DELIVERED: 480.95mGy.cm Total DLP DATA REPOSITORY: All CT scans at this facility are submitted to the National Radiology Data Registry (NRDR) Dose Index Registry (DIR) with the [employer] (ACR). RADIATION OPTIMIZATION: All CT scans at this facility use at least one of these dose optimization te chniques: automated exposure control; mA and/or kV adjustment per patient size (includes targeted exa ms where dose is matched to clinical indication); or iterative reconstruction.
[2023-08-09] MEDS: Ketorolac 15 MG/ML VIAL IVP (13:17)
--- NOTE | 2023-08-09 14:11 | DI.VRAD_ITS ---
PROCEDURE INFORMATION: Exam: CTA Chest With Contrast Exam date and time: 08/09/2023 12:44 PM Age: 57 years old Clinical indication: Other: SOB, right sided chest pain TECHNIQUE: Imaging protocol: Computed tomographic angiography of the chest with contrast. Exam focused on the arteries. 3D rendering (Not supervised by radiologist): MIP and/or 3D reconstructed images were created by the technologist. Contrast material: OMNIPAQUE 350; Contrast volume: 80 ml; Contrast route: INTRAVENOUS (IV); COMPARISON: CT CHEST LUNG CANCER SCREEN 07/31/2023 2:10 PM FINDINGS: Pulmonary arteries: No evidence of pulmonary embolus to the segmental level. Aorta: No aneurysm of the aorta. No dissection of the aorta. Celiac trunk and mesenteric arteries: The celiac artery and SMA artery are patent Lungs: Opacities in both lower lobes and right middle lobe may represent atelectasis or pneumonia.. Pleural spaces: Minimal right pleural effusion.. Heart: Unremarkable. No cardiomegaly. No pericardial effusion. Lymph nodes: Pathologic node in the preaortic region 13.5 x 10 mm Gallbladder and bile ducts: Cholecystectomy Pancreas: 13 mm lipoma in the tail of the pancreas Bones/joints: Unremarkable. No acute fracture. Soft tissues: Unremarkable. IMPRESSION: 1. No evidence of pulmonary embolus to the segmental level. 2. No aneurysm of the aorta. 3. No dissection of the aorta. 4. Minimal right pleural effusion.. 5. Opacities in both lower lobes and right middle lobe may represent atelectasis or pneumonia.. Dictated and Authenticated by: Veronica Bennett MD. Ordering:JOLIE Ramos MD
--- NOTE | 2023-08-09 14:37 | W.ED.GENAD ---
HPI General Mode of arrival: ambulatory. Date/Time Provider Initiated Documentation: 08/09/23 10:46. Limitations to Documentation: no limitations. Information obtained by: patient and RN notes reviewed. History of Present Illness 57 year old F presents to the emergency department with the chief complaint of Right chest pain, described as moderate, and is localized to the chest. Patient extremity. Patient started experiencing this week(s) (1) and it has been constant. No relieving factors improve symptom(s), Related Data Home Medications Medication Instructions Recorded Confirmed fluticasone propionate 230 2 puff inhalation BID 07/11/19 08/09/23 mcg-salmeterol 21 mcg/actuation HFA inhaler (Advair HFA) lamotrigine 150 mg tablet 150 mg PO DAILY 07/11/19 08/09/23 (Lamictal) levalbuterol tartrate 45 2 inh inhalation Q6H 07/11/19 08/09/23 mcg/actuation aerosol inhaler quetiapine 400 mg tablet (Seroquel) 400 mg PO QHS 07/11/19 08/09/23 gabapentin 600 mg tablet 300 mg PO QHS 10/14/20 08/09/23 hydrochlorothiazide 25 mg tablet 25 mg PO DAILY 11/04/21 08/09/23 levothyroxine 100 mcg capsule 100 mcg PO DAILY 02/24/23 08/09/23 metoprolol succinate 25 mg 25 mg PO BID 02/24/23 08/09/23 tablet,extended release 24 hr acetaminophen 500 mg tablet 500 mg PO BID PRN 07/03/23 08/09/23 polyethylene glycol 3350 See Rx Instructions .Route 07/03/23 08/09/23 DIRECTED flucloxacillin 100 mg PO BID 07/16/23 08/09/23 fluticasone fur. 100 mcg-umeclid 1 inh inhalation DAILY #60 ea 07/16/23 08/09/23 62.5 mcg-vilant 25 mcg inhalat.powder (Trelegy Ellipta) phenazopyridine 95 mg tablet (Azo 190 mg PO TID PRN 07/16/23 08/09/23 Urinary Pain Relief) budesonide 160 mcg-glycopyr 9 2 inh inhalation BID #10.7 grams 07/20/23 08/09/23 mcg-formot 4.8 mcg/actuation HFA inhaler (Breztri Aerosphere) benzonatate 200 mg capsule 200 mg PO TID PRN cough #30 caps 08/09/23 cefpodoxime 200 mg tablet 200 mg PO BID #14 tabs 08/09/23 doxycycline hyclate 100 mg tablet 100 mg PO BID 08/09/23 08/09/23 Previous Rx's Medication Instructions Recorded fluticasone fur. 100 mcg-umeclid 1 inh inhalation DAILY #60 ea 07/16/23 62.5 mcg-vilant 25 mcg inhalat.powder (Trelegy Ellipta) budesonide 160 mcg-glycopyr 9 2 inh inhalation BID #10.7 grams 07/20/23 mcg-formot 4.8 mcg/actuation HFA inhaler (Breztri Aerosphere) benzonatate 200 mg capsule 200 mg PO TID PRN cough #30 caps 08/09/23 cefpodoxime 200 mg tablet 200 mg PO BID #14 tabs 08/09/23 Allergies Allergy/AdvReac Type Severity Reaction Status Date / Time ampicillin Allergy Intermediate Rash, Verified 08/09/23 10:51 vomiting sulfamethoxazole Allergy Intermediate Tachycardia Verified 08/09/23 10:51 [From Bactrim] fluoxetine [From Prozac] Allergy Mild anxiety Verified 08/09/23 10:51 clindamycin AdvReac Intermediate tachycardia Verified 08/09/23 10:51 General Stated Complaint: Chest Pain JOSEFINA: 2 Review of Systems Constitutional Constitutional: Denies chills, Denies fever(s) and Reports malaise ENT Ears, Nose, Mouth, and Throat: Denies nasal congestion and Denies sore throat Cardiovascular Cardiovascular: Reports chest pain, Denies syncope, Denies lightheadedness and Reports dyspnea Respiratory Respiratory: Reports cough, Reports pain with cough and Reports dyspnea Gastrointestinal Gastrointestinal: Denies abdominal pain Integumentary/Breasts Skin/Breast: Denies rash Neurologic Neurologic: Denies syncope Exam Const General: cooperative, healthy appearing, comfortable, no acute distress, not diaphoretic and not ill appearing Nutritional Appearance: average body habitus Orientation: alert, awake and oriented x3 Limitations: mental status not altered Neck Neck: normal visual inspection, full ROM, trachea midline, supple and no anterior neck swelling Carotids: normal carotid upstroke and no bruits Chest Chest: normal inspection of the chest Resp Effort & Inspection: normal respiratory effort and able to speak in complete sentences Auscultation: clear to auscultation bilaterally Cardio Jugular venous pressure: no JVD Palpation: normal PMI Rate: regular rate Rhythm: regular rhythm Heart Sounds: S1 normal, S2 normal, no click, no gallops, no murmurs and no rubs Bruits: no abdominal aortic bruits and no carotid bruits Pulses: radial pulses present bilaterally 2+ GI Inspection: normal to inspection Palpation: soft, no aortic enlargement, no pulsatile masses and nontender Auscultation: normal bowel sounds Skin General skin exam: no rashes or lesions noted Neuro General: patient alert, patient awake, patient oriented x3, tone normal and moves all extremities Course Vital Signs Vital signs: Vital Signs Temperature 37.3 C 08/09/23 10:46 Pulse 104 H 08/09/23 10:46 Respiratory Rate 15 08/09/23 10:46 Blood Pressure 140/91 H 08/09/23 10:46 Pulse Oximetry 95 08/09/23 10:46 Temperature 37.3 C 08/09/23 10:46 Temperature Source Oral 08/09/23 10:46 Pulse 80 08/09/23 13:31 Pulse 84 08/09/23 11:46 Respiratory Rate 19 08/09/23 11:46 Respiratory Effort Normal 08/09/23 11:14 Respiratory Depth Normal 08/09/23 11:14 Respiratory Pattern Normal 08/09/23 11:14 Blood Pressure 120/83 08/09/23 13:31 Blood Pressure Mean 93 08/09/23 13:31 Blood Pressure Position Sitting 08/09/23 10:46 Pulse Oximetry 95 08/09/23 10:46 Oxygen Delivery Method Room Air 08/09/23 10:46 Oxygen Flow Rate 0 08/09/23 10:46 Pain Level 8 08/09/23 13:17 Lab/Test Results Lab/Test Results: Laboratory Tests Range/Units 08/09/23 11:05 WBC (4.4-10.8) 10^3/uL 11.80 H RBC (3.93-5.22) 10^6/uL 4.88 Hgb (11.2-15.7) g/dL 13.9 Hct (36.0-46.0) % 42.2 MCV (80-95) fL 87 MCH (27.0-33.0) pg 28.5 MCHC (32.0-36.0) % 32.9 RDW (11.7-14.6) % 13.6 Plt Count (130-400) 10^3/uL 468 H MPV (8.0-11.0) fL 8.6 Immature Gran % 0.7 Neutrophils % 64.1 Lymphocytes % 21.4 Monocytes % 9.1 Eosinophils % 3.1 Basophils % 1.6 Nucleated RBC % (0.0-0.3) % 0.0 Absolute Neutrophils (1.2-6.7) 10^3/uL 7.56 H Absolute Lymphocytes (1.2-3.4) 10^3/uL 2.53 Absolute Monocytes (0.1-0.8) 10^3/uL 1.07 H Absolute Eosinophils (0.0-0.7) 10^3/uL 0.37 Absolute Basophils (0.0-0.2) 10^3/uL 0.19 PT (9.1-11.1) sec 9.8 INR (0.9-1.1) 1.0 APTT (23.6-32.8) sec 25.9 D-Dimer (<500) ng/mlFEU 787 H Sodium (136-145) mmol/L 141 Potassium (3.5-5.1) mmol/L 3.5 Chloride (98-107) mmol/L 102 Carbon Dioxide (21.0-32.0) mmol/L 27.7 Anion Gap (3-11) mmol/L 11.3 H BUN (7-18) mg/dL 10 Creatinine (0.55-1.02) mg/dL 1.0 Est GFR (CKD-EPI 2020) (mL/min/1.73m2) 66.53 Glucose (74-106) mg/dL 111 H Calcium (8.5-10.1) mg/dL 10.1 Magnesium (1.8-2.4) mg/dL 1.8 Total Bilirubin (0.2-1.0) mg/dL 0.4 AST (15-37) U/L 10 L ALT (14-59) U/L 13 L Alkaline Phosphatase (46-116) U/L 107 Troponin I (< or =60) ng/L < 50 Total Protein (6.4-8.2) g/dL 7.1 Albumin (3.4-5.0) g/dL 3.1 L Medical Decision Making Patient presenting to the emergency department for worsening chest pain. Patient diagnosed at other facility with possible pneumonia after chest x-ray and has been taking Z-Alexandr and doxycycline. Patient states continued symptoms and worsening of condition. Physical exam unremarkable. Will plan on checking labs including D-dimer. Reviewed labs which does show a leukocytosis, D-dimer of 787, and overall nondiagnostic CMP. Troponin is negative. CT imaging of chest was performed and patient has findings to suggest pneumonia. Discussed with patient risk versus benefits of Levaquin given that symptoms are worsening versus adding cephalosporin. After discussion of risk versus benefit decided to add cephalosporin given that patient has already had double coverage with azithromycin and Doxy. Patient has stated allergy to ampicillin but states that she has taken other similar meds with no other issues. Will have patient return for new or worsening symptoms otherwise follow-up with primary care provider. After discussion of diagnosis and plan of care patient has no further needs, questions, or concerns and states clear understanding to return to the emergency department for any worsening symptoms. This documentation was generated using [employer] system, please disregard any oddities of phrase or misspellings. Imaging Data Radiologic Study: Radiologist's impression: Exam(s) PROCEDURE INFORMATION: Exam: CTA Chest With Contrast Exam date and time: 08/09/2023 12:44 PM Age: 57 years old Clinical indication: Other: SOB, right sided chest pain TECHNIQUE: Imaging protocol: Computed tomographic angiography of the chest with contrast. Exam focused on the arteries. 3D rendering (Not supervised by radiologist): MIP and/or 3D reconstructed images were created by the technologist. Contrast material: OMNIPAQUE 350; Contrast volume: 80 ml; Contrast route: INTRAVENOUS (IV); COMPARISON: CT CHEST LUNG CANCER SCREEN 07/31/2023 2:10 PM FINDINGS: Pulmonary arteries: No evidence of pulmonary embolus to the segmental level. Aorta: No aneurysm of the aorta. No dissection of the aorta. Celiac trunk and mesenteric arteries: The celiac artery and SMA artery are patent Lungs: Opacities in both lower lobes and right middle lobe may represent atelectasis or pneumonia.. Pleural spaces: Minimal right pleural effusion.. Heart: Unremarkable. No cardiomegaly. No pericardial effusion. Lymph nodes: Pathologic node in the preaortic region 13.5 x 10 mm Gallbladder and bile ducts: Cholecystectomy Pancreas: 13 mm lipoma in the tail of the pancreas Bones/joints: Unremarkable. No acute fracture. Soft tissues: Unremarkable. IMPRESSION: 1. No evidence of pulmonary embolus to the segmental level. 2. No aneurysm of the aorta. 3. No dissection of the aorta. 4. Minimal right pleural effusion.. 5. Opacities in both lower lobes and right middle lobe may represent atelectasis or pneumonia.. Dictated and Authenticated by: Veronica Bennett MD. Lab Data Lab results reviewed: Yes I reviewed the patient's lab results. Quality:SDOH Health Related Social Needs: No Data to Display PFSH All Active Problems (Updated 08/09/23 @ 14:41 by Richard Greco NP) Right-sided chest wall pain (Acute) Pneumonia (Acute) COPD (chronic obstructive pulmonary disease) (Chronic) Post-acute sequelae of COVID-19 (PASC) (Acute) Anemia due to blood loss (Acute) Palpitations (Acute) Medication overuse headache (Acute) Migraine headache without aura (Acute) Chronic headache (Acute) Back pain (Acute) Leg pain, bilateral (Acute) Medical History (Updated 08/09/23 @ 14:41 by Richard Greco NP) COVID Thoracic back pain Right sided abdominal pain Perimenopausal disorder History of muscle pain Migraine Malaise and fatigue Lymphadenopathy History of IBS Hypokalemia Headache Fatigue Essential hypertension Dysphagia Difficulty speaking Claustrophobia Hx of chronic obstructive lung disease Chronic constipation Overactive bladder Allergic rhinitis Abdominal pain in female Bipolar 1 disorder Umbilical hernia Postoperative retention of urine Low back pain Irritable bowel syndrome History of chronic constipation Right inguinal hernia Anxiety Anemia Hyperlipidemia Hypothyroidism Uterine fibroid Surgical History (Updated 07/03/23 @ 13:27 by Es Pa) Hx of colonoscopy 12/07/18 S/P cholecystectomy 2005 S/P hernia repair epigastric x3 S/P hysterectomy with oophorectomy 2018; with bladder suspension and cystocele repair H/O breast biopsy x3 Family History (Updated 07/03/23 @ 13:27 by Es Pa) Father , HAD 3 MIS AND CABG- [employer] ACCIDENT AT 49 Myocardial infarction Heart disease Mother Mental disorder Stroke COPD (chronic obstructive pulmonary disease) Brother Thyroid disease Daughter Asthma Social History (Updated 07/03/23 @ 13:25 by Es Pa) Smoking/Tobacco Use Status: Current every day Tobacco Type: cigarettes Smoking packs per day: 1 Smoking cigarettes per day: 20.0 Tobacco: How many years used: 33 Smoking risk assessment performed?: Yes Alcohol Intake: never Drug use: Never Substance use type: does not use Number of Children: 2 current occupation: Unemployed What is your relationship status?: Panel score (0-1 are the most socially isolated patients): 0 Seatbelt use: always Do you feel safe at home: Yes Do you feel safe in your relationship?: Yes Discharge Plan Disposition Patient Disposition: Home Discharge Details Clinical Impression: Pneumonia, Right-sided chest wall pain Primary Care Provider: Unknown,Unknown ED Provider: Richard Greco Home Meds and New Rx's Prescriptions: New cefpodoxime 200 mg tablet 200 mg PO BID Qty: 14 0RF Rx Instructions: must administer with a meal/food benzonatate 200 mg capsule 200 mg PO TID PRN (Reason: cough) Qty: 30 0RF Continued phenazopyridine [Azo Urinary Pain Relief] 95 mg tablet 190 mg PO TID PRN flucloxacillin 100 mg PO BID Trelegy Ellipta 100-62.5-25 mcg blister with device 1 inh inhalation DAILY Qty: 60 12RF Advair HFA 230-21 mcg/actuation HFA aerosol inhaler 2 puff IH BID lamotrigine [Lamictal] 150 mg tablet 150 mg PO DAILY levalbuterol tartrate 45 mcg/actuation HFA aerosol inhaler 2 inh IH Q6H quetiapine [Seroquel] 400 mg tablet 400 mg PO QHS hydrochlorothiazide 25 mg tablet 25 mg PO DAILY metoprolol succinate 25 mg tablet extended release 24 hr 25 mg PO BID levothyroxine 100 mcg capsule 100 mcg PO DAILY acetaminophen 500 mg tablet 500 mg PO BID PRN polyethylene glycol 3350 See Rx Instructions .ROUTE DIRECTED Rx Instructions: as directed; Breztri Aerosphere 160-9-4.8 mcg/actuation HFA aerosol inhaler 2 inh inhalation BID Qty: 10.7 9RF gabapentin 600 mg tablet 300 mg PO QHS doxycycline hyclate 100 mg tablet 100 mg PO BID Patient Comments: TAKE ONE TABLET BY MOUTH TWICE A DAY FOR 10 DAYS Rx Instructions: Started wednesday Discharge Instructions Instructions: Pneumonia (ED), Chest Wall Pain (ED) Additional Instructions: For your pain and discomfort please continue use [id number] pain medication as needed for relief. Please continue the antibiotics that you are already prescribed and take those until they are already gone and we have added a additional antibiotic to get further bacterial coverage. This is closely related to one of your allergens so please monitor symptoms and stop immediately if you develop any signs of allergic reaction Return immediately to the emergency department for any new or significant worsening of symptoms otherwise follow-up with your primary care provider if not improving Referrals: Primary Care Provider [Outside] Discharge Data Discharge Date/Time-TO BE ENTERED AT DEPARTURE: 08/09/23 15:15
[2023-08-09] MEDS: Cefpodoxime 200 MG TAB PO (15:02)
[2023-08-09] MEDS: Dexamethasone 10 MG/ML VIAL IVP (15:02)
== END 2023-08-09 15:15 | disposition home or self-care (01) ==
PROVIDERS: Emergency Provider Nurse Practitioner Family
DX: R07.89 Other chest pain (principal); J18.9 Pneumonia, unspecified organism; I10 Essential (primary) hypertension; E78.5 Hyperlipidemia, unspecified; J44.9 Chronic obstructive pulmonary disease, unspecified; F17.210 Nicotine dependence, cigarettes, uncomplicated
CPT/HCPCS: 36415; 71275; 80053; 93005; 96374; 96375; 99285; 71046; 83735; 84484; 85025; 85379; 85610; 85730; 93010; 99284; J0131; J1100; J1885; J3490

== ENCOUNTER → 2023-09-16 13:11 | Outpatient (BNVA) | payer MEDICARE, MEDICAID, SELFPAY | PROVIDERS: Referring Provider Family Medicine; Visit Provider Physician Assistant Surgical | DX: J44.9 Chronic obstructive pulmonary disease, unspecified (principal); U09.9 Post COVID-19 condition, unspecified | CPT/HCPCS: 99214 ==

== ENCOUNTER 2023-09-28 08:04 | Emergency (ER) | payer MEDICARE, MEDICAID, SELFPAY ==
[2023-09-28] VITALS (49 sets, daily range): BP systolic 110–144; BP diastolic 75–115; PULSE 90–116; RESP 11–31; TEMP 36.9; O2SAT 94–98
--- NOTE | 2023-09-28 08:00 | RT.EKG_ITS ---
APPROVED REPORT Exam: Resting ECG Reason for Exam: chest pain sob Patient Location: E HR:101 bpm ECG Measurements Heart Rate 101 AXIS LA 171 P 34 QRSd 82 QRS 49 QT 334 T -51 QTc 434 Conclusion Sinus tachycardia...rate> 99 artifact lead v6 uninterpretable
--- NOTE | 2023-09-28 08:14 | W.ED.GENAD ---
Discharge Plan Disposition Patient Disposition: Home Condition: Stable Discharge Details Clinical Impression: Acute pericardial effusion, Chest pain, Pneumonia Primary Care Provider: Aguilar Matthew ED Provider: Manda Bolton Home Meds and New Rx's Prescriptions: New doxycycline hyclate 100 mg tablet 100 mg PO BID 10 Days Qty: 20 0RF Lodoco 0.5 mg tablet 0.5 mg PO BID 90 Days Qty: 180 0RF Rx Instructions: Take 1 tablet twice daily for the next 3 months as directed. aspirin 650 mg tablet,delayed release (DR/EC) 650 mg PO TID 7 Days Qty: 60 0RF Rx Instructions: Take 1 tablet 3 times a day for 1 week, 1 tablet twice a day for 1 week, and then 1 tablet daily x 1 week Continued budesonide-formoterol [Symbicort] 80-4.5 mcg/actuation HFA aerosol inhaler 2 puff inhalation BID Qty: 10.2 12RF phenazopyridine [Azo Urinary Pain Relief] 95 mg tablet 190 mg PO TID PRN Hold Instructions: Pt Stopped/Never Started Trelegy Ellipta 100-62.5-25 mcg blister with device 1 inh inhalation DAILY Qty: 60 12RF Hold Instructions: Pt Stopped/Never Started Advair HFA 230-21 mcg/actuation HFA aerosol inhaler 2 puff IH BID Hold Instructions: Pt Stopped/Never Started lamotrigine [Lamictal] 150 mg tablet 150 mg PO DAILY levalbuterol tartrate 45 mcg/actuation HFA aerosol inhaler 2 inh IH Q6H quetiapine [Seroquel] 400 mg tablet 400 mg PO QHS hydrochlorothiazide 25 mg tablet 25 mg PO DAILY metoprolol succinate 25 mg tablet extended release 24 hr 25 mg PO BID levothyroxine 100 mcg capsule 100 mcg PO DAILY acetaminophen 500 mg tablet 500 mg PO BID PRN polyethylene glycol 3350 See Rx Instructions .ROUTE DIRECTED Rx Instructions: as directed; Breztri Aerosphere 160-9-4.8 mcg/actuation HFA aerosol inhaler 2 inh inhalation BID Qty: 10.7 9RF Hold Instructions: Pt Stopped/Never Started gabapentin 600 mg tablet 300 mg PO QHS Discharge Instructions Instructions: Chest Pain (ED), Pericardial Effusion (ED) Additional Instructions: At this time the troponins are negative which would indicate cardiac muscle injury. The echocardiogram shows normal function of your heart. He do have a small amount of fluid around your heart which could be causing your pain and shortness of breath. Please follow-up with cardiology within the next week. You were placed on care management list to assist you in getting a close follow-up. Please take chewable baby aspirin daily. Continue taking your medications as previously prescribed. Return to the ER be seen sooner for any worsening chest pain, shortness of breath, fever or concerns. Referrals: Trang Perez MD [ [facility] STAFF PHYSICIAN] - 1 week Aguilar Matthew NP [Primary Care Provider] - 2 weeks HPI General Mode of arrival: ambulatory. Date/Time Provider Initiated Documentation: 09/28/23 08:08. Limitations to Documentation: no limitations. Information obtained by: patient, RN notes reviewed and old records reviewed. HPI Narrative: 57-year-old female presents to the ER with a chief complaint left-sided chest pain for the last 3 days also reports shortness of breath at night, gurgling and coughing at night. She is a smoker does have a history of COPD and has been using her rescue inhaler with little to no relief, other history includes IBS hypokalemia, bipolar 1, hyperlipidemia hypothyroidism anxiety and anemia. On exam she is speaking in full sentences, alert and oriented she does have some rhonchi and expiratory wheezes noted to the left lower base and right side. Related Data Home Medications Medication Instructions Recorded Confirmed fluticasone propionate 230 2 puff inhalation BID 07/11/19 09/28/23 mcg-salmeterol 21 mcg/actuation HFA inhaler (Advair HFA) lamotrigine 150 mg tablet 150 mg PO DAILY 07/11/19 09/28/23 (Lamictal) levalbuterol tartrate 45 2 inh inhalation Q6H 07/11/19 09/28/23 mcg/actuation aerosol inhaler quetiapine 400 mg tablet (Seroquel) 400 mg PO QHS 07/11/19 09/28/23 gabapentin 600 mg tablet 300 mg PO QHS 10/14/20 09/28/23 hydrochlorothiazide 25 mg tablet 25 mg PO DAILY 11/04/21 09/28/23 levothyroxine 100 mcg capsule 100 mcg PO DAILY 02/24/23 09/28/23 metoprolol succinate 25 mg 25 mg PO BID 02/24/23 09/28/23 tablet,extended release 24 hr acetaminophen 500 mg tablet 500 mg PO BID PRN 07/03/23 09/28/23 polyethylene glycol 3350 See Rx Instructions .Route 07/03/23 09/28/23 DIRECTED fluticasone fur. 100 mcg-umeclid 1 inh inhalation DAILY #60 ea 07/16/23 09/28/23 62.5 mcg-vilant 25 mcg inhalat.powder (Trelegy Ellipta) phenazopyridine 95 mg tablet (Azo 190 mg PO TID PRN 07/16/23 09/28/23 Urinary Pain Relief) budesonide 160 mcg-glycopyr 9 2 inh inhalation BID #10.7 grams 07/20/23 09/28/23 mcg-formot 4.8 mcg/actuation HFA inhaler (Breztri Aerosphere) budesonide-formoterol HFA 80 2 puff inhalation BID #10.2 grams 09/16/23 09/28/23 mcg-4.5 mcg/actuation aerosol inhaler (Symbicort) aspirin 650 mg tablet,delayed 650 mg PO TID 1 week #60 tabs 09/28/23 release colchicine (cardiac) 0.5 mg tablet 0.5 mg PO BID Pericarditis 3 09/28/23 (Lodoco) months #180 tabs doxycycline hyclate 100 mg tablet 100 mg PO BID 10 days #20 tabs 09/28/23 Previous Rx's Medication Instructions Recorded fluticasone fur. 100 mcg-umeclid 1 inh inhalation DAILY #60 ea 07/16/23 62.5 mcg-vilant 25 mcg inhalat.powder (Trelegy Ellipta) budesonide 160 mcg-glycopyr 9 2 inh inhalation BID #10.7 grams 07/20/23 mcg-formot 4.8 mcg/actuation HFA inhaler (Breztri Aerosphere) budesonide-formoterol HFA 80 2 puff inhalation BID #10.2 grams 09/16/23 mcg-4.5 mcg/actuation aerosol inhaler (Symbicort) aspirin 650 mg tablet,delayed 650 mg PO TID 1 week #60 tabs 09/28/23 release colchicine (cardiac) 0.5 mg tablet 0.5 mg PO BID Pericarditis 3 09/28/23 (Lodoco) months #180 tabs doxycycline hyclate 100 mg tablet 100 mg PO BID 10 days #20 tabs 09/28/23 Allergies Allergy/AdvReac Type Severity Reaction Status Date / Time ampicillin Allergy Intermediate Rash, Verified 09/28/23 08:17 vomiting sulfamethoxazole Allergy Intermediate Tachycardia Verified 09/28/23 08:17 [From Bactrim] fluoxetine [From Prozac] Allergy Mild anxiety Verified 09/28/23 08:17 clindamycin AdvReac Intermediate tachycardia Verified 09/28/23 08:17 General JOSFEINA: 2 Review of Systems All systems reviewed & are unremarkable except as noted in HPI and below Exam Narrative Exam Narrative: Constitutional: Alert and oriented x3. Appears stated age. Normal body habitus. Head: Normocephalic, no trauma. Eyes: Pupils PERRL, Red reflex noted, EOM's intact. Eyelids symmetrical without lesions, discharge, or swelling. ENT: Bilateral TM's WNL, External ear normal to inspection, no mastoid TTP, swelling, or erythema, Nasal turbinates WNL, no nasal discharge. Normal dentition, Posterior pharynx WNL, no exudate. Chest: RRR, Normal S1, S2, distal pulses intact. Mildly tachycardic upon initial presentation. Complaining of left-sided chest pain worse with lying down. Resp: Lungs clear to auscultation bilaterally, no wheezes, rales, rhonchi noted to the bilateral bases. Abdomen: Soft, non-distended, Normoactive bowel sounds all 4 quads. Musculoskeletal: Normal gait, 5/5 strength to all four extremities. Skin: No suspicious rashes or lesions. Capillary refill less than 2 sec. Neurologic: Cranial nerves II-XII intact. Alert and oriented x 3. Motor: No deficits noted. Sensory: Intact bilaterally all 4 extremities. Hematologic/Lymphatic: No ecchymosis, no lymphadenopathy. Medical Decision Making 57-year-old female presents to the ER with a chief complaint left-sided chest pain for the last 3 days also reports shortness of breath at night, gurgling and coughing at night. She is a smoker does have a history of COPD and has been using her rescue inhaler with little to no relief, other history includes IBS hypokalemia, bipolar 1, hyperlipidemia hypothyroidism anxiety and anemia. On exam she is speaking in full sentences, alert and oriented she does have some rhonchi and expiratory wheezes noted to the left lower base and right side. Cardiac workup ordered including CBC CMP, D-dimer, serial troponins, chest x-ray COVID swab. Called by radiologist regarding chest x-ray some questionable small pneumo on the right lower quadrant, CT chest ordered. To further evaluate and differentiate. CBC is within normal limits, Initial troponin less than 50, CMP shows slightly hypokalemia with potassium 3.1, glucose 123, Fluvid negative. 1046: [facility] transfer center called. Cardiology to call me back. 1126: Echocardiogram ordered, they are at [facility]. 1135: Serial Troponin negative. 1230: Spoke with Dr. Nichols, with [facility] cardiology, will call me back and will await Echocardiogram images. 1314:Spoke again with Dr. Nichols she will call me back after getting the echocardiogram results which I read to her. She is suggesting that possibly patient should be able to follow up with local client service coordinator if possible. 1334: Spoke with Dr. Perez who is happy to follow up with patient. Will discharge patient with home care to take chest pain precautions and return if any worsening. 1400: Spoke with Dr. Carlson with [facility] cardiology who recommends treatment for pericarditis to include colchicine twice daily for the next 3 months and high-dose aspirin taper 650 mg 3 times a day x 1 week 650 mg twice a day x 1 week and 1 tablet for 1 week. Prescriptions added to current prescriptions to patient's pharmacy. Patient discharged in hemodynamically stable condition, alert and oriented discussed with her strict return instructions and red flags to return. She verbalized understanding. All her questions were answered to the best my ability. Patient was placed on care management list to follow-up with Dr. Perez. This text was generated using achvration system, please disregard any oddities of phrase or misspellings. Medical Records Medical records reviewed: Yes I reviewed the patient's medical records. Imaging Data Radiologic Study: Imaging: X-Ray Radiologist's impression: EXAM: XR PORTABLE CHEST AP CLINICAL HISTORY: chest Pain, SOB. TECHNIQUE: 2D digital imaging was performed. COMPARISON: CR,XR XR CHEST 2V PA LATERAL from 08/09/2023 FINDINGS: Single AP portable view. Heart size is upper normal. The mediastinum is not widened. There is unchanged scarring or platelike atelectasis in the left lung base. However on the right side there are new findings in the lower lung field. There is a vertically orientated line probably representing atelectasis or scarring and there is also a an adjacent horizontal line, more evident than previous. No pleural effusions. IMPRESSION: New right lower lung field findings. Cannot exclude focal pneumothoraxat this level. Appropriate follow-up recommended. Called by myself to ER provider. Radiologic Study #2: Imaging: CT Scan Radiologist's impression: EXAM: CT CHEST PE CTA CLINICAL HISTORY: Chest pain,. TECHNIQUE: Imaging Protocol: CT angiography of the chest was performed using pulmonary embolus protocol. Multi planar reconstructions were performed. CONTRAST MATERIAL: Intravenous: Omnipaque 350 Contrast volume: 100 cc COMPARISON: CT CT CHEST PE CTA from 08/09/2023 FINDINGS: CHEST: PULMONARY ARTERIES: There are no intraluminal filling defects to suggest acute pulmonary emboli. LUNGS: There is platelike atelectasis in the right lower lobe. There also increased subpleural markings in the right lower lobe posterior basal segment, not associated with pleural effusion. In the opposite-left lung there are mild increased markings evident in the lingular segment. MEDIASTINUM: There is no hilar nor mediastinal adenopathy. Visualized thyroid unremarkable. CARDIAC: There is upper normal. However, there is a pericardial effusion noted which exhibits 1 cm thickness. This pericardial effusion was not previously present on 08/09/2023.Caliber of the thoracic aorta is within normal limits. No evidence of aortic dissection. There is no significant shift of the interventricular septum. PARTIALLY VISUALIZED UPPERMOST ABDOMEN: No significant adrenal masses. However, there is a well-defined area of the pancreatic tail measuring 1.2 by 1.2 cm which exhibits fat density. Probably invagination of mesenteric fat into the pancreatic tail at this level. This finding is unchanged from 08/09/2023. OSSEOUS: No significant osseous lesions.. IMPRESSION: 1. No evidence of acute pulmonary emboli. 2. The main finding here is a new pericardial effusion which was not evident on recent CT scan of 08/09/2023 and exhibits a thickness of 1 cm. 3. No evidence of aortic dissection nor pericardial effusion. 4. Pleural based infiltrate in the posterior basal segment right lower lobe. No associated rib destruction nor pleural effusion. 5. Fatty infiltration of the pancreatic tail again noted. Radiologic Study #3: Imaging: Ultrasound Radiologist's impression: EXAM: Comprehensive 2D, Doppler, and color-flow Echocardiogram Patient Location: ER Room/Bed: 7 [employer]: Juan Pablo Shi RDCS (AE) Indications: chest pain, pericardial effusion seen on CT Conclusion Normal left ventricular wall thickness and chamber size. EF is 60-65%. Wall motion is normal Normal right ventricular size and function Both atria are normal in size There is no structural or hemodynamically signficant valvular disease Estimated right ventricular systolic pressure is 21 mmHg Small pericardial effusion Wall motion Left Ventricle The left ventricle is normal size. The left ventricular systolic function is normal. The left ventricular ejection fraction is within the normal range. There is normal left ventricular wall thickness. There is normal LV segmental wall motion. There is no ventricular septal defect visualized. LVEF is 60-65%. Right Ventricle The right ventricle is normal size. The right ventricular systolic function is normal. Atria The left atrium size is normal. The right atrium size is normal. The interatrial septum is intact with no evidence for an atrial septal defect. Aortic Valve The aortic valve is normal in structure. Aortic valve is trileaflet. There is no aortic valvular stenosis. No aortic regurgitation is present. Mitral Valve The mitral valve is normal in structure. No evidence of mitral valve stenosis. Trace to mild mitral regurgitation. Tricuspid Valve The tricuspid valve is normal in structure. There is no tricuspid valve stenosis. Trace to mild tricuspid regurgitation. The RVSP is 20.7 mmHg. Pulmonic Valve The pulmonary valve is normal in structure. There is no pulmonic valvular stenosis. There is no pulmonic valvular regurgitation. Great Vessels The aortic root is normal in size. The ascending aorta is normal in size. Aortic arch is not well visualized. IVC is normal in size and collapses >50% with inspiration. Pericardium Small circumferential pericardial effusion. Lab Data Lab results reviewed: Yes I reviewed the patient's lab results. Labs: Laboratory Tests Range/Units 09/28/23 09/28/23 08:24 08:30 WBC (4.4-10.8) 10^3/uL 10.43 RBC (3.93-5.22) 10^6/uL 4.97 Hgb (11.2-15.7) g/dL 14.3 Hct (36.0-46.0) % 43.8 MCV (80-95) fL 88 MCH (27.0-33.0) pg 28.8 MCHC (32.0-36.0) % 32.6 RDW (11.7-14.6) % 14.3 Plt Count (130-400) 10^3/uL 349 MPV (8.0-11.0) fL 9.0 Immature Gran % 0.4 Neutrophils % 70.5 Lymphocytes % 14.4 Monocytes % 11.3 Eosinophils % 2.0 Basophils % 1.4 Nucleated RBC % (0.0-0.3) % 0.0 Absolute Neutrophils (1.2-6.7) 10^3/uL 7.35 H Absolute Lymphocytes (1.2-3.4) 10^3/uL 1.50 Absolute Monocytes (0.1-0.8) 10^3/uL 1.18 H Absolute Eosinophils (0.0-0.7) 10^3/uL 0.21 Absolute Basophils (0.0-0.2) 10^3/uL 0.15 D-Dimer (<500) ng/mlFEU 637 H Sodium (136-145) mmol/L 139 Potassium (3.5-5.1) mmol/L 3.1 L Chloride (98-107) mmol/L 102 Carbon Dioxide (21.0-32.0) mmol/L 29.3 Anion Gap (3-11) mmol/L 7.7 BUN (7-18) mg/dL 9 Creatinine (0.55-1.02) mg/dL 0.9 Est GFR (CKD-EPI 2020) (mL/min/1.73m2) 75.50 Glucose (74-106) mg/dL 123 H Calcium (8.5-10.1) mg/dL 9.2 Magnesium (1.8-2.4) mg/dL 2.2 Total Bilirubin (0.2-1.0) mg/dL 1.0 AST (15-37) U/L 12 L ALT (14-59) U/L 20 Alkaline Phosphatase (46-116) U/L 120 H Troponin I (< or =60) ng/L < 50 Total Protein (6.4-8.2) g/dL 7.2 Albumin (3.4-5.0) g/dL 3.2 L COVID-19 Source Nasopharynx SARS-CoV-2 (PCR) (Negative) Negative Influenza Type A (PCR) (Negative) Negative Influenza Type B (PCR) (Negative) Negative RSV (PCR) (Negative) Negative Quality:SDOH Health Related Social Needs: No Data to Display PFSH All Active Problems (Updated 09/28/23 @ 13:50 by Manda Bolton NP) Pneumonia (Acute) Chest pain (Acute) Acute pericardial effusion (Acute) COPD (chronic obstructive pulmonary disease) (Chronic) Post-acute sequelae of COVID-19 (PASC) (Acute) Anemia due to blood loss (Acute) Palpitations (Acute) Medication overuse headache (Acute) Migraine headache without aura (Acute) Chronic headache (Acute) Back pain (Acute) Leg pain, bilateral (Acute) Medical History COVID Thoracic back pain Right sided abdominal pain Perimenopausal disorder History of muscle pain Migraine Malaise and fatigue Lymphadenopathy History of IBS Hypokalemia Headache Fatigue Essential hypertension Dysphagia Difficulty speaking Claustrophobia Hx of chronic obstructive lung disease Chronic constipation Overactive bladder Allergic rhinitis Abdominal pain in female Bipolar 1 disorder Umbilical hernia Postoperative retention of urine Low back pain Irritable bowel syndrome History of chronic constipation Right inguinal hernia Anxiety Anemia Hyperlipidemia Hypothyroidism Uterine fibroid Surgical History Hx of colonoscopy 12/07/18 S/P cholecystectomy 2005 S/P hernia repair epigastric x3 S/P hysterectomy with oophorectomy 2018; with bladder suspension and cystocele repair H/O breast biopsy x3 Family History Father , HAD 3 MIS AND CABG- BEAD BUILDER ACCIDENT AT 49 Myocardial infarction Heart disease Mother Mental disorder Stroke COPD (chronic obstructive pulmonary disease) Brother Thyroid disease Daughter Asthma Social History Smoking/Tobacco Use Status: Current every day Tobacco Type: cigarettes Smoking packs per day: 1 Smoking cigarettes per day: 20.0 Tobacco: How many years used: 33 Smoking risk assessment performed?: Yes Alcohol Intake: never Drug use: Never Substance use type: does not use Number of Children: 2 current occupation: Unemployed What is your relationship status?: Panel score (0-1 are the most socially isolated patients): 0 Seatbelt use: always Do you feel safe at home: Yes Do you feel safe in your relationship?: Yes
[2023-09-28] MEDS: Aspirin 81 MG CHEW 324 MG CH (08:31)
[2023-09-28 08:35] LABS: Abs Immature Grans 0.04 10^3/uL (0.0-0.06); Absolute Basophil Count 0.15 10^3/uL (0.0-0.2); Absolute Eosinophil Count 0.21 10^3/uL (0.0-0.7); Absolute Monocyte Count 1.18 10^3/uL (0.1-0.8); Absolute Neutrophil Count 7.35 10^3/uL (1.2-6.7); Basophils % 1.4; HCT 43.8 % (36.0-46.0); HGB 14.3 g/dL (11.2-15.7); Immature Grans % 0.4; Lymphocytes % 14.4; MCH 28.8 pg (27.0-33.0); MCHC 32.6 % (32.0-36.0); MCV 88 fL (80-95); Monocytes % 11.3; Neutrophils % 70.5; Platelet Count 349 10^3/uL (130-400); RBC 4.97 10^6/uL (3.93-5.22); RDW 14.3 % (11.7-14.6); RDW-SD 45.8 fL; WBC 10.43 10^3/uL (4.4-10.8)
--- NOTE | 2023-09-28 08:57 | DI.RAD_ITS ---
Exam(s) XR PORTABLE CHEST AP EXAM: XR PORTABLE CHEST AP CLINICAL HISTORY: chest Pain, SOB. TECHNIQUE: 2D digital imaging was performed. COMPARISON: CR,XR XR CHEST 2V PA LATERAL from 08/09/2023 FINDINGS: Single AP portable view. Heart size is upper normal. The mediastinum is not widened. There is unchanged scarring or platelike atelectasis in the left lung base. However on the right side there are new findings in the lower lung field. There is a vertically orie ntated line probably representing atelectasis or scarring and there is also a an adjacent horizontal line, more evident than previous. No pleural effusions. IMPRESSION: New right lower lung field findings. Cannot exclude focal pneumothoraxat this level. Appropriate fo llow-up recommended. Called by myself to ER provider. DATA REPOSITORY: RADIATION DOSE DELIVERED:
[2023-09-28 09:09] LABS: D-Dimer 637 ng/mlFEU (<500)
[2023-09-28 09:13] LABS: ALT 20 U/L (14-59); AST 12 U/L (15-37); Albumin 3.2 g/dL (3.4-5.0); Alkaline Phosphatase 120 U/L (46-116); Anion Gap 7.7 mmol/L (3-11); BUN 9 mg/dL (7-18); CO2 29.3 mmol/L (21.0-32.0); CREATININE 0.9 mg/dL (0.55-1.02); Calcium 9.2 mg/dL (8.5-10.1); Chloride 102 mmol/L (98-107); Glucose 123 mg/dL (74-106); Magnesium 2.2 mg/dL (1.8-2.4); Potassium 3.1 mmol/L (3.5-5.1); Sodium 139 mmol/L (136-145); Total Protein 7.2 g/dL (6.4-8.2); Troponin I < 50 ng/L (< or =60)
[2023-09-28 09:28] LABS: COVID-19 PCR Negative (Negative); Influenza A PCR Negative (Negative); Influenza B PCR Negative (Negative); RSV PCR Negative (Negative)
[2023-09-28] MEDS: Normal Saline - Diluent 50 ML VIAL IJ (09:37)
[2023-09-28] MEDS: Omnipaque 350 MG/ML 100 ML BTL IJ (09:38)
--- NOTE | 2023-09-28 09:40 | DI.CT_ITS ---
Exam(s) CT CHEST PE CTA EXAM: CT CHEST PE CTA CLINICAL HISTORY: Chest pain,. TECHNIQUE: Imaging Protocol: CT angiography of the chest was performed using pulmonary embolus markell col. Multi planar reconstructions were performed. CONTRAST MATERIAL: Intravenous: Omnipaque 350 Contrast volume: 100 cc COMPARISON: CT CT CHEST PE CTA from 08/09/2023 FINDINGS: CHEST: PULMONARY ARTERIES: There are no intraluminal filling defects to suggest acute pulmonary emboli. LUNGS: There is platelike atelectasis in the right lower lobe. There also increased subpleural emmy ngs in the right lower lobe posterior basal segment, not associated with pleural effusion. In the op posite-left lung there are mild increased markings evident in the lingular segment. MEDIASTINUM: There is no hilar nor mediastinal adenopathy. Visualized thyroid unremarkable. CARDIAC: There is upper normal. However, there is a pericardial effusion noted which exhibits 1 cm t hickness. This pericardial effusion was not previously present on 08/09/2023.Caliber of the thoracic aorta is within normal limits. No evidence of aortic dissection. There is no significant shift of t he interventricular septum. PARTIALLY VISUALIZED UPPERMOST ABDOMEN: No significant adrenal masses. However, there is a well-defi altagracia area of the pancreatic tail measuring 1.2 by 1.2 cm which exhibits fat density. Probably invagin ation of mesenteric fat into the pancreatic tail at this level. This finding is unchanged from 08/09. OSSEOUS: No significant osseous lesions.. IMPRESSION: 1. No evidence of acute pulmonary emboli. 2. The main finding here is a new pericardial effusion which was not evident on recent CT scan of and exhibits a thickness of 1 cm. 3. No evidence of aortic dissection nor pericardial effusion. 4. Pleural based infiltrate in the posterior basal segment right lower lobe. No associated rib dest ruction nor pleural effusion. 5. Fatty infiltration of the pancreatic tail again noted. Report called by myself to ER provider. RADIATION DOSE DELIVERED: Total DLP DATA REPOSITORY: All CT scans at this facility are submitted to the National Radiology Data Registry (NRDR) Dose Index Registry (DIR) with the [employer] ([employer]). RADIATION OPTIMIZATION: All CT scans at this facility use at least one of these dose optimization te chniques: automated exposure control; mA and/or kV adjustment per patient size (includes targeted exa ms where dose is matched to clinical indication); or iterative reconstruction.
[2023-09-28 09:46] LABS: Source Nasopharynx
[2023-09-28] MEDS: Potassium Chloride Liquid 20 MEQ PKT 40 MEQ PO (10:00)
[2023-09-28] MEDS: Normal Saline Flush 10 ML SYR IVP (10:01)
--- NOTE | 2023-09-28 11:30 | DI.US_ITS ---
APPROVED REPORT EXAM: Comprehensive 2D, Doppler, and color-flow Echocardiogram Patient Location: ER Room/Bed: 7 Anthropology Instructor: Juan Pablo Shi RDCS (AE) Indications: chest pain, pericardial effusion seen on CT Conclusion Normal left ventricular wall thickness and chamber size. EF is 60-65%. Wall motion is normal Normal right ventricular size and function Both atria are normal in size There is no structural or hemodynamically signficant valvular disease Estimated right ventricular systolic pressure is 21 mmHg Small pericardial effusion Wall motion Left Ventricle The left ventricle is normal size. The left ventricular systolic function is normal. The left ventric ular ejection fraction is within the normal range. There is normal left ventricular wall thickness. T here is normal LV segmental wall motion. There is no ventricular septal defect visualized. LVEF is 60 -65%. Right Ventricle The right ventricle is normal size. The right ventricular systolic function is normal. Atria The left atrium size is normal. The right atrium size is normal. The interatrial septum is intact wit h no evidence for an atrial septal defect. Aortic Valve The aortic valve is normal in structure. Aortic valve is trileaflet. There is no aortic valvular sten osis. No aortic regurgitation is present. Mitral Valve The mitral valve is normal in structure. No evidence of mitral valve stenosis. Trace to mild mitral r egurgitation. Tricuspid Valve The tricuspid valve is normal in structure. There is no tricuspid valve stenosis. Trace to mild tricu spid regurgitation. The RVSP is 20.7 mmHg. Pulmonic Valve The pulmonary valve is normal in structure. There is no pulmonic valvular stenosis. There is no pulmo vlad valvular regurgitation. Great Vessels The aortic root is normal in size. The ascending aorta is normal in size. Aortic arch is not well vis ualized. IVC is normal in size and collapses >50% with inspiration. Pericardium Small circumferential pericardial effusion. 2D Dimensions IVSD d PLAX 0.77 cm F: 0.6-1.0 Ao Root d 2.48 cm F: 2.7 - 3.3 LVPW d PLAX 0.77 cm F: 0.6 - 1.0 Ao Asc Diam d 2.69 cm F: 2.3 - 3.1 LVID d PLAX 4.27 cm F: 3.8 - 5.2 LVDs 2.83 cm F: 2.2 - 3.5 LV EF Teichholz 62.8 % FS 33.64 % LV EDV (Teich) 81.7 mL LV ESV (Teich) 30.4 mL Stroke Vol Index (Teich) 27.73 M-Mode TAPSE 1.55 cm (M/F) >1.7 Auto EF LV EDV A4C 68.5 mL LV EDV A2C 69.7 mL LV EDV BP LV ESV A4C 27.5 mL LV ESV A2C 27.9 mL LV ESV BP LVEF(%) A4C 59.9 % LVEF(%) A2C 59.9 % LVEF(%) BP LV SV A4C 41.0 ml LV SV A2C 41.8 ml LV SV BP LV CO A4C 3.7 L/min LV CO A2C 3.8 L/min LV CO BP HR A4C 90.92 BPM HR A2C 90.92 BPM LV EDV Index (BP) LA Volume LA Length A4C 5.3 cm LA Length A2C LA Area A4C s 11.40 cm2 LA Area A2C s LA Vol A4C A-L 20.62 mL LA Vol A2C A-L LA Vol Biplane A-L LA Vol A4C MOD 19.3 mL LA Vol A2C MOD LA Vol BP MOD RA Volume RA Area A4C 6.2 cm2 RA ESV A4C (A-L) 8.8mL RA Vol/BSA A4C A-L RA Length A4C 3.7 cm RA ESV A4C (MOD) 8.6mL LV Diastology MV E' medial 0.092 (>0.07 m/s) MV E Vmax 0.62 (0.4-1.3 m/s) MV E/E' MED 7.02 (<14) MV A Vmax 0.90 (0.4-1.3 m/s) MV E' lateral 0.098 (>0.1 m/s) E/A Ratio 0.7 MV E/E' LAT 6.61 (<14) MV E' Average 0.095 m/s MV E/E'(average) 6.81 Aortic Valve AoV Vmax 1.27 m/s LVOT Vmax 0.82 m/s AoV Peak Grad 6.5 mmHg LVOT Peak Grad 2.7 mmHg AoV Area (Vmax) 1.52 cm2 LVOT VTI 0.143 m AoV VTI 0.246 m LVOT Mean Grad 1.3 mmHg AoV Mean Rico. 0.90 m/s LVOT SV 33.85 mL AoV Mean Grad 3.6 mmHg LVOT Diam s 1.70 cm AoV Area (VTI) 1.38 cm2 Velocity Ratio 0.65 Mitral Valve MV DT 130 (160-240 msec) Pulmonary Valve PV Vmax 0.83 (0.5-1.5 m/s) RVOT Vmax 0.49 m/s PV Peak Grad 2.8 mmHg RVOT Peak Gr. 0.9 mmHg PV Mean Rico 0.58 m/s RVOT VTI 0.098 m PV Mean Grad 1.5 mmHg RVOT Mean Gr. 0.6 mmHg Tricuspid Valve RA Pressure 3.00 mmHg TR Vmax 2.11 m/s TR Peak Grad 17.7 mmHg RVSP (TR) 20.7 mmHg
[2023-09-28 11:32] LABS: Troponin I < 50 ng/L (< or =60)
[2023-09-28 13:26] LABS: ESR 52 mm/hr (0-30)
[2023-09-28 13:31] LABS: C-Reactive Protein 6.09 mg/dL (<or=0.5)
[2023-09-28] MEDS: Doxycycline Hyclate 100 MG CAP PO (13:55)
--- NOTE | 2023-09-28 16:34 | NUR.NOTE ---
Referral faxed to [facility] Cardiology; consulted with Dr Perez; pericardial effusion, chest pain, in 1 week. Nursing Note:
== END 2023-09-28 14:30 | disposition home or self-care (01) ==
PROVIDERS: Emergency Provider Registered Nurse Emergency; PCP Nurse Practitioner Family
DX: J18.9 Pneumonia, unspecified organism (principal); I31.39 Other pericardial effusion (noninflammatory); I10 Essential (primary) hypertension; J44.9 Chronic obstructive pulmonary disease, unspecified; E78.5 Hyperlipidemia, unspecified; Z11.52 Encounter for screening for COVID-19; Z79.82 Long term (current) use of aspirin; F17.210 Nicotine dependence, cigarettes, uncomplicated
CPT/HCPCS: 71275; 80053; 85652; 87637; 93005; 93306; 99285; 71045; 83735; 84484; 85025; 85379; 86140; 93010; 99284; J3490

== ENCOUNTER 2023-10-13 08:21 | Outpatient (CLI) | payer MEDICARE, MEDICAID, SELFPAY ==
--- NOTE | 2023-10-13 08:15 | RT.EKG_ITS ---
APPROVED REPORT Exam: Resting ECG Reason for Exam: chest pain Patient Location: O HR:94 bpm ECG Measurements Heart Rate 94 AXIS TN 154 P 23 QRSd 116 QRS 43 QT 314 T -33 QTc 393 Conclusion Sinus rhythm...normal P axis, V-rate 50- 99 Probable left atrial enlargement...P >50mS, <-0.10mV V1 Borderline T abnormalities, diffuse leads...T flat/neg
== END 2023-10-13 08:22 | disposition home or self-care (01) ==
LOC: DI.CARD 08:22
PROVIDERS: PCP Nurse Practitioner Family; Visit Provider Internal Medicine Cardiovascular Disease
DX: R00.2 Palpitations (principal); R07.9 Chest pain, unspecified
CPT/HCPCS: 93010

== ENCOUNTER → 2023-10-13 12:54 | Outpatient (BNVA) | payer MEDICARE, MEDICAID, SELFPAY | PROVIDERS: PCP Nurse Practitioner Family; Referring Provider Nurse Practitioner Family; Visit Provider Internal Medicine Cardiovascular Disease | DX: I30.0 Acute nonspecific idiopathic pericarditis (principal); R94.31 Abnormal electrocardiogram [ECG] [EKG] | CPT/HCPCS: 93005; 99214 ==

== ENCOUNTER → 2023-12-23 11:03 | Outpatient (BNVA) | payer MEDICARE, MEDICAID, SELFPAY | PROVIDERS: PCP Nurse Practitioner Family; Visit Provider Physician Assistant Surgical | DX: J44.9 Chronic obstructive pulmonary disease, unspecified (principal); U09.9 Post COVID-19 condition, unspecified; F17.210 Nicotine dependence, cigarettes, uncomplicated | CPT/HCPCS: 99214 ==

== ENCOUNTER → 2024-11-09 09:37 | Outpatient (BNVA) | payer MEDICARE, MEDICAID, SELFPAY | PROVIDERS: PCP Nurse Practitioner Family; Referring Provider Nurse Practitioner Family; Visit Provider Physician Assistant Surgical | DX: U09.9 Post COVID-19 condition, unspecified (principal); J44.9 Chronic obstructive pulmonary disease, unspecified; F17.210 Nicotine dependence, cigarettes, uncomplicated | CPT/HCPCS: 99214; 36415 ==

== ENCOUNTER 2024-11-09 10:32 | Outpatient (REF) | payer MEDICARE, MEDICAID, SELFPAY ==
[2024-11-09 10:39] LABS: Abs Immature Grans 0.02 10^3/uL (0.0-0.06); Absolute Basophil Count 0.18 10^3/uL (0.0-0.2); Absolute Eosinophil Count 0.23 10^3/uL (0.0-0.7); Absolute Lymphocyte Count 2.38 10^3/uL (1.2-3.4); Absolute Monocyte Count 0.74 10^3/uL (0.1-0.8); Absolute Neutrophil Count 4.85 10^3/uL (1.2-6.7); Basophils % 2.1 %; Eosinophils % 2.7 %; HCT 44.4 % (36.0-46.0); HGB 14.9 g/dL (11.2-15.7); Immature Grans % 0.2 %; Lymphocytes % 28.3 %; MCHC 33.6 % (32.0-36.0); MCV 86 fL (80-95); MPV 9.1 fL (8.0-11.0); Monocytes % 8.8 %; Neutrophils % 57.9 %; Platelet Count 353 10^3/uL (130-400); RBC 5.14 10^6/uL (3.93-5.22); RDW-SD 40.6 fL
[2024-11-09 12:05] LABS: ALT 17 U/L (14-59); AST 16 U/L (15-37); Albumin 3.7 g/dL (3.4-5.0); Alkaline Phosphatase 102 U/L (46-116); Anion Gap 7.8 mmol/L (3-11); BUN 13 mg/dL (7-18); Bilirubin, Total 0.5 mg/dL (0.2-1.0); CO2 29.2 mmol/L (21.0-32.0); CREATININE 0.9 mg/dL (0.55-1.02); Calcium 9.6 mg/dL (8.5-10.1); Chloride 104 mmol/L (98-107); Estimated GFR 75.03 (mL/min/1.73m2); Glucose 103 mg/dL (74-106); NT-proBNP 84 pg/mL (<300); Potassium 3.6 mmol/L (3.5-5.1); Sodium 141 mmol/L (136-145); Total Protein 6.5 g/dL (6.4-8.2)
== END 2024-11-09 10:33 | disposition home or self-care (01) ==
LOC: LBN 10:32
PROVIDERS: PCP Nurse Practitioner Family; Visit Provider Physician Assistant Surgical
DX: J44.9 Chronic obstructive pulmonary disease, unspecified (principal); I50.9 Heart failure, unspecified
CPT/HCPCS: 80053; 83880; 85025

== ENCOUNTER 2024-11-18 00:30 | Outpatient (CLI) | payer MEDICARE, MEDICAID, SELFPAY ==
[2024-11-18] MEDS: Normal Saline - Diluent 50 ML VIAL IJ (15:02)
[2024-11-18] MEDS: Omnipaque 350 MG/ML 100 ML BTL 70 ML IJ (15:04)
--- NOTE | 2024-11-18 15:45 | DI.CT_ITS ---
Exam(s) CT CHEST PE CTA EXAM: CT CHEST PE CTA CLINICAL HISTORY: SOB, cough,COPD,J44.9. TECHNIQUE: Imaging Protocol: CT angiography of the chest was performed using pulmonary embolus markell col. Multi planar reconstructions were performed. CONTRAST MATERIAL: Intravenous: Omnipaque 350 Contrast volume: 100 cc COMPARISON: CT CT CHEST PE CTA from 09/28/2023 FINDINGS: CHEST: PULMONARY ARTERIES: There are no intraluminal filling defects to suggest acute pulmonary emboli. LUNGS: There is some atelectasis or scarring in the posterior basal segment of the right lower lobe. No other pulmonary focal pulmonary findings and no pleural effusions. No findings in the trachea an d mainstem bronchi.. There are no pleural effusions. MEDIASTINUM: There is no hilar nor mediastinal adenopathy. CARDIAC: Heart size is upper normal. There is no pericardial effusion.Caliber of the thoracic aorta is within normal limits. No evidence of dissection. There is no significant shift of the interventri cular septum. PARTIALLY VISUALIZED UPPERMOST ABDOMEN: No obvious findings OSSEOUS: No significant osseous lesions.No fractures.. IMPRESSION: 1. No evidence of acute pulmonary emboli. No evidence of pulmonary infarction. 2. There is scarring or platelike atelectasis in the right lower lobe posterior basal segment. There are no pleural effusions. RADIATION DOSE DELIVERED: 65.53mGy.cm Total DLP DATA REPOSITORY: All CT scans at this facility are submitted to the National Radiology Data Registry (NRDR) Dose Index Registry (DIR) with the [employer] ([employer]). RADIATION OPTIMIZATION: All CT scans at this facility use at least one of these dose optimization te chniques: automated exposure control; mA and/or kV adjustment per patient size (includes targeted exa ms where dose is matched to clinical indication); or iterative reconstruction.
== END 2024-11-18 00:50 ==
LOC: DI 00:30
PROVIDERS: PCP Nurse Practitioner Family; Visit Provider Physician Assistant Surgical
DX: J44.9 Chronic obstructive pulmonary disease, unspecified (principal); J98.11 Atelectasis
CPT/HCPCS: 71275; J3490